=== PATIENT | female | born 1940 | race Caucasian/White ===

== ENCOUNTER 2020-06-29 10:05 | Outpatient (REF) | payer SELFPAY | END 2020-06-29 10:06 | disposition home or self-care (01) | LOC: HO.HAP 10:05 | PROVIDERS: PCP Internal Medicine; Referring Provider Internal Medicine; Visit Provider Internal Medicine | DX: Z13.89 Encounter for screening for other disorder (principal) | CPT/HCPCS: 92700 ==

== ENCOUNTER 2020-08-31 16:14 | Outpatient (REF) | payer MEDICARE, SELFPAY ==
--- NOTE | 2020-08-31 | MM_ITS ---
EXAMINATION: MM SCREENING DIGITAL BREAST TOMOSYNTHESIS, BILATERAL CLINICAL INFORMATION: Screening. Asymptomatic. Benign right stereotactic biopsy 06/23/2016 (benign breast tissue with sclerosing adenosis, ductal hyperplasia with columnar cell change, and microcalcifications). The lifetime risk of breast cancer based on the Tyrer-Cuzick Model is under 2%. COMPARISON: Mammography: 01/15/2019, 01/08/2018, 12/29/2016, 06/23/2016, 06/10/2016 TECHNIQUE: Digital breast tomosynthesis is performed in both the craniocaudal and mediolateral oblique views along with computer-aided detection (CAD). Synthesized 2D images are generated from the tomosynthesis. FINDINGS: There are scattered areas of fibroglandular density (ACR BI-RADS breast composition Category b). There are no significant masses, abnormal calcifications, or other abnormalities. Parenchymal pattern is similar to prior studies. Again, there is biopsy clip marker right breast upper outer quadrant with stable calcifications in this area. No significant changes. MM/MM tomosynthesis screening BI IMPRESSION: No significant changes from prior exams. ASSESSMENT: BI-RADS 2: Benign RECOMMENDATION: Routine annual mammography screening. This patient's information was entered into a reminder system with a target due date for their next mammogram.
== END 2020-08-31 16:15 | disposition home or self-care (01) ==
LOC: HO.MAMMO 16:14
PROVIDERS: Visit Provider Internal Medicine
DX: Z12.31 Encounter for screening mammogram for malignant neoplasm of breast (principal)
CPT/HCPCS: 77063; 77067

== ENCOUNTER 2020-09-15 08:25 | Outpatient (REF) | payer MEDICARE, SELFPAY ==
--- NOTE | 2020-09-15 13:25 | MHC.AU.P13 ---
Adult Audiological Evaluation Date of Visit: 09/15/20 Reason for Appointment: Audiological evaluation to determine if there has been a decrease in hearing sensitivity. Ms. Gutierrez has a known bilateral, sensorineural hearing loss and uses binaural hearing aids. She feels her hearing has worsened and she has been raising the volume on her hearing aids frequently. She denies any changes to her medical history. Previous Hearing Test [place] [facility] [place]- Moderate to severe sensorineural hearing loss bilaterally. 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 Model: OPN1 mini RITE Serial Number: [id number] Battery Size: 312 Warranty: 07/07/2020 Dispensed By: [facility] Date of Fittin06/13/2017 Hearing Instrument History- Left Ear: Auto Brake Technician: O[employer]on Model: OPN 1 Mini RITE Serial Number: [id number] Battery Size: 312 Warranty: 07/07/2020 Dispensed By: [facility] Date of Fittin06/13/2017 Otoscopy: Right Ear: Unremarkable Left Ear: Unremarkable Tympanometry: Right Ear: Hypercompliant Middle Ear System (Type Ad) Left Ear: Hypercompliant Middle Ear System (Type Ad) Hearing Evaluation: Transducer(s) Used: Insert Earphones, Circumaural Headphones (rechecked with both) Method: Conventional Audiometry Stimuli Used: Pure Tones Right Ear: Description of Hearing: Moderate to moderately severe sensorineural hearing loss from 250-8000 Hz. Left Ear: Description of Hearing: Moderate to severe sensorineural hearing loss from 250-8000 Hz. Speech Recognition Threshold (SRT): Method Used: Monitored Live Voice Stimuli Used: Spondee Words Right Ear: 55 dBHL Left Ear: 50 dBHL Word Discrimination: Method: Recorded Lists Word Lists Used: NU-6 Right Ear: 56% at 75 dBHL (MCL) & 64% at 85 dBHL Left Ear: 24% at 70 dBHL (MCL) & 72% at 80 dBHL Most Comfortable Level (MCL): Right Ear: 75 dBHL Left Ear: 70 dBHL Comparison: Compared to the most recent evaluation: Word discrimination scores have decreased bilaterally. Compared to most recent evaluation: Puretone thresholds have remained stable bilaterally. Recommendations: Recommendations: Audiological re-evaluation in one year. See Hearing Aid Follow-Up note for more information. Hearing aid(s) reprogrammed with updated test results. Diagnosis: Primary Diagnosis: H90.3 Bilateral Sensorineural Hearing Loss Services Performed: Services Performed: Comprehensive Audiological Evaluation (CPT 00305) Tympanometry (CPT 72131) Signature: Provider: Dandre Dick, CCC-A
== END 2020-09-15 08:26 | disposition home or self-care (01) ==
LOC: HO.SH 08:25
PROVIDERS: Visit Provider Internal Medicine
DX: H90.3 Sensorineural hearing loss, bilateral (principal)
CPT/HCPCS: 92557; 92567

== ENCOUNTER 2020-09-15 09:43 | Outpatient (REF) | payer SELFPAY | END 2020-09-15 09:44 | disposition home or self-care (01) | LOC: HO.HAP 09:43 | PROVIDERS: Visit Provider Internal Medicine | DX: Z46.1 Encounter for fitting and adjustment of hearing aid (principal); H90.3 Sensorineural hearing loss, bilateral | CPT/HCPCS: V5267 ==

== ENCOUNTER 2020-09-15 09:51 | Outpatient (REF) | payer MEDICARE, SELFPAY | END 2020-09-15 09:52 | disposition home or self-care (01) | LOC: HO.LAB 09:51 | PROVIDERS: PCP Internal Medicine; Visit Provider Internal Medicine | DX: Z20.822 Contact with and (suspected) exposure to COVID-19 (principal) | CPT/HCPCS: 36415; C9803; U0003 ==

== ENCOUNTER 2020-12-01 14:11 | Outpatient (REF) | payer MEDICARE, SELFPAY ==
--- NOTE | ~2020-12-01 | MR_ITS ---
EXAMINATION: MR BRAIN WITHOUT AND WITH CONTRAST CLINICAL INFORMATION: Acoustic neuroma. Self-reported rushing noise in head since October 2020. No trauma. COMPARISON: None TECHNIQUE: Multiplanar, multisequence MRI of the brain was obtained before and after the intravenous administration of 6.5 mL Gadavist. Internal auditory canal protocol images are obtained. FINDINGS: Mild diffuse commensurate prominence of ventricles and sulci is noted. A mild number of scattered subcortical and periventricular white matter punctate T2 hyperintensities are visualized. No intracranial hemorrhage, tumors or acute infarcts are noted. The craniocervical junction and cerebellar tonsils are normal in configuration. Convex inward configuration of the superior margin of the pituitary is incidentally noted. No suspicious marrow abnormalities are visualized. The visualized components of the 7th and 8th cranial nerves are normal in appearance. The temporal bone labyrinths are grossly normal in configuration and signal intensity. A 6 mm focus of cystic encephalomalacia is present in the left thalamus and has the appearance of a chronic lacunar infarct. No abnormal enhancement of the brain parenchyma is visualized. Normal flow-related signal intensity is noted within the visualized major intracranial vessels and dural sinuses. MR/MR head/brain wo/w con IMPRESSION: 1. Mild white matter chronic small vessel ischemic changes and chronic lacunar infarct within the left thalamus. 2. Normal appearance of the visualized 7th and 8th cranial nerve complexes. No evidence of fibular schwannomas.
[2020-12-01 14:51] LABS: Blood Urea Nitrogen 22 mg/dL (9-16); Estimated Glomerular Filt Rate > 60
== END 2020-12-01 14:12 | disposition home or self-care (01) ==
LOC: HO.MRI 14:11
PROVIDERS: PCP Internal Medicine; Visit Provider Internal Medicine
DX: D33.3 Benign neoplasm of cranial nerves (principal); H93.19 Tinnitus, unspecified ear
CPT/HCPCS: 36415; 70553; 82565; 84520; A9585

== ENCOUNTER 2021-01-20 09:45 | Outpatient (REF) | payer MEDICARE, SELFPAY ==
--- NOTE | ~2021-01-20 | CT_ITS ---
EXAMINATION: CT SOFT TISSUE NECK WITH CONTRAST CLINICAL INFORMATION: Pain and swelling. COMPARISON: None TECHNIQUE: Following the intravenous administration of 60 mL of Omnipaque 350 intravenous contrast, helical imaging was performed in the axial plane with generation of coronal and sagittal reformatted images. This CT examination was performed using dose optimization techniques as appropriate, variously including the following: *Automated exposure control *Adjustment of mA and/or kV according to patient size (this includes techniques or standardized protocols for targeted exams where dose is matched to indication/reason for exam; i.e. extremities or head) *Use of iterative reconstruction technique DLP: 245 mGy-cm FINDINGS: No cervical adenopathy is identified. The parotid glands are homogeneous in attenuation. The submandibular glands are normal. No contour abnormality or pathologic enhancement is seen within the oral cavity or pharyngeal mucosal space. The laryngeal structures are normal. There is minimal fluid/hypodensity seen in the valleculae. The piriform sinuses are clear. The parapharyngeal fat is preserved. The carotid sheath vasculature opacifies normally. No extramucosal soft tissue mass or fluid collection is seen. No retropharyngeal fluid collection is seen. The thyroid gland is normal. The superior mediastinum is unremarkable. There are emphysematous changes in both lung apices. No focal lesion or consolidation is seen. An ectatic right brachiocephalic artery is visualized. There is moderate mucoperiosteal thickening in the left maxillary sinus. The rest of the paranasal sinuses are well aerated and clear. There is moderate deviation of the nasal septum to the left with a patent nasal cavity airway. There is katalina bullosa of the right middle turbinate. The temporomandibular joints are normal. No periapical disease is identified. There are degenerative disc changes and spondylosis throughout the cervical spine. The craniovertebral junction is normal. The imaged portions of the brain parenchyma are unremarkable. CT/CT soft tissue neck w con IMPRESSION: There are chronic left maxillary sinus inflammatory changes. No radiopaque sialolith. The salivary and thyroid glands are symmetrical and normal. Moderate deviation of the nasal septum to the left with a small bony spur. There is a katalina bullosa of the right middle turbinate. Degenerative disc changes with spondylosis at every cervical disc level.
[2021-01-20 10:12] LABS: Blood Urea Nitrogen 22 mg/dL (9-16); Estimated Glomerular Filt Rate > 60
[2021-01-20] MEDS: iohexoL 350 MG/ML 100 ML INFUS..BTL IV (12:19)
== END 2021-01-20 09:46 | disposition home or self-care (01) ==
LOC: HO.CT 09:45
PROVIDERS: PCP Internal Medicine; Visit Provider Internal Medicine
DX: R60.0 Localized edema (principal); R52 Pain, unspecified
CPT/HCPCS: 36415; 70491; 82565; 84520; Q9967

== ENCOUNTER 2021-06-01 09:50 | Outpatient (REF) | payer MEDICARE, SELFPAY ==
[2021-06-02 07:59] LABS: SARS COV2 IgG Negative (Negative)
== END 2021-06-01 09:51 | disposition home or self-care (01) ==
LOC: HO.LAB 09:50
PROVIDERS: PCP Internal Medicine; Visit Provider Internal Medicine
DX: Z01.84 Encounter for antibody response examination (principal)
CPT/HCPCS: 36415; 86769

== ENCOUNTER 2021-09-14 09:43 | Outpatient (REF) | payer MEDICARE, SELFPAY ==
--- NOTE | ~2021-09-14 | MM_ITS ---
EXAMINATION: MM SCREENING DIGITAL BREAST TOMOSYNTHESIS, BILATERAL CLINICAL INFORMATION: Screening. Asymptomatic. Benign right stereotactic biopsy 06/23/2016 sclerosing adenosis, ductal hyperplasia with columnar cell change, and microcalcifications). The lifetime risk of breast cancer based on the Tyrer-Cuzick Model is 1%. COMPARISON: Mammography: 08/31/2020, 01/15/2019, 01/08/2018, TECHNIQUE: Digital breast tomosynthesis is performed in both the craniocaudal and mediolateral oblique views along with computer-aided detection (CAD). Synthesized 2D images are generated from the tomosynthesis. FINDINGS: There are scattered areas of fibroglandular density (ACR BI-RADS breast composition Category b). Parenchymal distribution is similar to prior exams. There is no developing density or interval mass or architectural abnormality. No abnormal calcifications on left. The bilateral axilla and skin contours are unremarkable. Calcifications mid upper outer right breast appear increased on the synthesized images. Patient will be recalled for additional magnification views to fully characterize. MM/MM tomosynthesis screening BI IMPRESSION: 1. Right: Calcifications mid upper outer right breast possibly increased. 2. Left: No mammographic evidence of malignancy. ASSESSMENT: BI-RADS 0: Incomplete - Need Additional Imaging Evaluation RECOMMENDATION: 1. Additional views of the right breast (magnification CC, magnification ML). 2. Radiology department staff will contact the patient for additional imaging. This patient's information was entered into a reminder system with a target due date for their next mammogram.
== END 2021-09-14 09:44 | disposition home or self-care (01) ==
LOC: HO.MAMMO 09:43
PROVIDERS: Visit Provider Internal Medicine
DX: Z12.31 Encounter for screening mammogram for malignant neoplasm of breast (principal)
CPT/HCPCS: 77063; 77067

== ENCOUNTER 2021-09-22 08:46 | Outpatient (REF) | payer MEDICARE, SELFPAY ==
--- NOTE | ~2021-09-22 | MM_ITS ---
EXAMINATION: MM DIAGNOSTIC DIGITAL MAMMOGRAPHY, RIGHT CLINICAL INFORMATION: Recall from screening for question of increased calcifications mid upper outer right breast. Prior benign right stereotactic biopsy in this area 06/23/2016 (sclerosing adenosis, ductal hyperplasia with columnar cell change, and microcalcifications). COMPARISON: Mammography: 09/14/2021, 08/31/2020, 12/29/2016. TECHNIQUE: Digital mammography is performed in the following views: Magnification CC, magnification ML. FINDINGS: There are scattered areas of fibroglandular density (ACR BI-RADS breast composition Category b). The fine calcifications mid upper outer right breast are similar in distribution and number to prior diagnostic magnification views 2017. There are no increasing calcifications or interval pleomorphic types. No significant changes. Results are discussed with the patient at time of visit. MM/MM added views RT IMPRESSION: Calcifications show no significant changes from prior magnification views 2017. ASSESSMENT: BI-RADS 2: Benign RECOMMENDATION: Routine annual mammography screening. This patient's information was entered into a reminder system with a target due date for their next mammogram.
== END 2021-09-22 08:47 | disposition home or self-care (01) ==
LOC: HO.MAMMO 08:46
PROVIDERS: Visit Provider Internal Medicine
DX: R92.1 Mammographic calcification found on diagnostic imaging of breast (principal)
CPT/HCPCS: 77065

== ENCOUNTER 2021-09-23 11:25 | Outpatient (REF) | payer MEDICARE, SELFPAY ==
--- NOTE | 2021-09-23 13:26 | MHC.AU.AHA ---
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 Since her last hearing test in 2020, Rosmery developed a sudden onset of tinnitus and dizzy/faint sensation after receiving her first COVID-19 vaccination. MRI of the brain indicated a blood vessel in the left side burst. No other symptoms developed and Rosmery is now on a blood thinner medication. Previous Hearing Test Results: 09/15/2020 [facility] Bilateral moderate to severe sensorineural hearing loss. Speech understanding for the right ear was 56% at 75 dB HL and 64% at 85 dB HL . Left ear speech discrimination was 24% at 70 dB HL and 72% at 80 dB HL Medical History: Medical History: High Blood Pressure, High Cholesterol, Arthritis Medication List: Plavix, Pantoprazole, Lisinopril, Amlodipine, Atorvastatin, Celecoxib Hearing Instrument History- Right Ear: Personal Driver: [employer] [place] Model: OPN1 mini RITE Serial Number: [id number] Battery Size: 312 Repair Warranty: 07/07/2020 Dispensed By: [facility] Date of Fittin06/13/2017 Hearing Instrument History- Left Ear: Personal Driver: Oticon Model: OPN 1 Mini RITE Serial Number: [id number] Battery Size: 312 Warranty: 07/07/2020 Dispensed By: [facility] Date of Fittin06/13/2017 Otoscopy: Right Ear: Unremarkable Left Ear: Unremarkable Tympanometry: Not performed at today's visit as all previous testing has indicated hyper-compliant middle ear systems, right ear greater than left. Hearing Evaluation: Transducer(s) Used: Insert Earphones Bone Conduction Method: Conventional Audiometry Stimuli Used: Pure Tones Right Ear: Description of Hearing: Moderately-severe to severe sensorineural hearing loss Left Ear: Description of Hearing: Moderately-severe to severe sensorineural hearing loss Speech Recognition Threshold (SRT): Method Used: Monitored Live Voice Stimuli Used: Spondee Words Right Ear: 50 dB HL Left Ear: 50 dB HL Word Discrimination: Method: Recorded Lists Word Lists Used: NU-6 Right Ear: 80% at 85 dB HL Left Ear: 64% at 80 dB HL Most Comfortable Level (MCL): Right Ear: 85 dB HL Left Ear: 80 dB HL Comparison: Compared to the most recent evaluation: Thresholds have decreased bilaterally. Speech discrimination has improved slightly. Recommendations: Hearing aid maintenance performed today. Hearing aid(s) reprogrammed with updated test results. Audiological re-evaluation in one year. Will send a reminder card. Diagnosis: Primary Diagnosis: H90.3 Bilateral Sensorineural Hearing Loss Secondary Diagnosis: H93.19 Tinnitus, Unspecified Ear Services Performed: Comprehensive Audiological Evaluation (CPT 74492) Signature: Provider: Dandre Valdovinos, CCC-A
== END 2021-09-23 11:26 | disposition home or self-care (01) ==
LOC: HO.SH 11:25
PROVIDERS: Visit Provider Internal Medicine
DX: H90.3 Sensorineural hearing loss, bilateral (principal)
CPT/HCPCS: 92557

== ENCOUNTER 2021-11-05 11:37 | Outpatient (REF) | payer SELFPAY ==
--- NOTE | 2021-11-05 13:51 | MHC.AU.HFU ---
Hearing Instrument Follow-Up- Binaural Date of Visit: 11/05/21 Right Ear: Leadership Development Manager: Oticon Model: OPN1 mini RITE Serial Number: [id number] Repair Warranty: 07/07/2020 Battery Size: 312 Color: CHROMA BEIGE Assistant Women'S Soccer Coach: 1-85 Type of Dome: 10MM POWER Type of Wax Guard: Prowax minifit Dispensed By: [facility] Date of Fittin06/13/2017 Left Ear: Leadership Development Manager: Oticon Model: OPN 1 Mini RITE Serial Number: [id number] Repair Warranty: 07/07/2020 Battery Size: 312 Color: CHROMA BEIGE Assistant Women'S Soccer Coach: 1-85 Type of Dome: 10 MM POWER Type of Wax Guard: prowax minifit Dispensed By: [facility] Date of Fittin06/13/2017 Follow-Up Summary: Patient continues to have problem with the right aid staying securely in the ear. She wants to try a custom mold for the right ear at this time. Took impressions of both ears today without complication in case she likes the mold and wants to but one for the left ear. Left impression in HOLD. Recommendations:Schedule EM fitting and programming appointment when right custom mold in Diagnosis Code(s): Primary Diagnosis: H90.3 Bilateral Sensorineural Hearing Loss Secondary Diagnosis: H93.19 Tinnitus, Unspecified Ear Signature:Provider: Dandre Valdovinos, [facility]
== END 2021-11-05 11:38 | disposition home or self-care (01) ==
LOC: HO.HAP 11:37
PROVIDERS: Visit Provider Internal Medicine
DX: Z13.89 Encounter for screening for other disorder (principal)

== ENCOUNTER 2021-11-26 12:11 | Outpatient (REF) | payer SELFPAY | END 2021-11-26 12:12 | disposition home or self-care (01) | LOC: HO.HAP 12:11 | PROVIDERS: Visit Provider Internal Medicine | DX: Z46.1 Encounter for fitting and adjustment of hearing aid (principal); H90.3 Sensorineural hearing loss, bilateral | CPT/HCPCS: V5264 ==

== ENCOUNTER 2021-11-30 10:12 | Emergency (ER) | payer MEDICARE, SELFPAY ==
[2021-11-30 11:11] VITALS: BP 186/89; PULSE 66; RESP 18; TEMP 36.8; O2SAT 96; BMI 26.5
--- NOTE | 2021-11-30 12:40 | ECG_ITS ---
Test Reason : hbp Blood Pressure : / mmHG Vent. Rate : 067 BPM Atrial Rate : 067 BPM P-R Int : 152 ms QRS Dur : 078 ms QT Int : 442 ms P-R-T Axes : 058 041 025 degrees QTc Int : 467 ms Sinus rhythm with Premature supraventricular complexes Borderline ECG When compared with ECG of 15-NOV-2004 10:44, Premature supraventricular complexes are now Present Referred By: Sushma Remy Electronically Signed By:ANGELO MCCLENDON
[2021-11-30 13:01] LABS: MANUAL DIFF FLAG NO
[2021-11-30 13:02] LABS: Basophils Absolute Auto 0.1 X10*3/uL (0.0-0.2); Basophils Percent Auto 0.8 % (0-2); Eosinophils Absolute Auto 0.1 X10*3/uL (0.0-0.4); Hemoglobin 14.7 g/dl (12.0-16.0); Imm Gran Abs Auto 0.02 X10*3/uL (0.00-0.03); Imm Gran Pct Auto 0.3 % (0.0-0.4); Lymphocytes Absolute Auto 1.6 X10*3/uL (1.2-4.9); Lymphocytes Percent Auto 25.3 % (20-40); Mean Corpuscular HGB Conc 34.2 g/dl (31.0-35.0); Mean Corpuscular Hemoglobin 32.1 pg (27.0-33.0); Mean Corpuscular Volume 93.9 fL (80.0-98.0); Mean Platelet Volume 9.3 fL (9.4-12.3); Monocytes Absolute Auto 0.7 X10*3/uL (0.1-1.2); Neutrophils Percent Auto 61.6 % (45-73); Platelet Count 212 X10*3/uL (160-400); Red Blood Count 4.58 X10*6/uL (4.20-5.50); Red Cell Distribution Width 13.6 % (11.0-16.0); White Blood Count 6.5 X10*3/uL (4.8-10.8)
[2021-11-30 13:17] LABS: Anion Gap 12 (12-20); Blood Urea Nitrogen 15 mg/dL (9-16); Calcium 9.9 mg/dL (8.4-10.2); Carbon Dioxide 25 mmol/L (22-29); Chloride 106 mmol/L (96-108); Creatinine Clr Calc Pharmacy 52.8; Estimated Glomerular Filt Rate > 60; Glucose Random 110 mg/dL (60-115); Potassium 3.9 mmol/L (3.3-5.1); Sodium 139 mmol/L (135-145)
[2021-11-30 13:22] LABS: Troponin-I High Sensitivity 4.4 ng/L (<3.5-17.0)
[2021-11-30 15:55] VITALS: BP 176/83; PULSE 65; RESP 16; O2SAT 96
--- NOTE | 2021-11-30 16:03 | PC.NURSE ---
PT AMBULATORY INTO PIVOT EXAM ONE. DISCUSSED CASE WITH DR VOSS. FEELS PATIENT IS OK FOR PIVOT EXAM ROOM PT AWAKE, ALERT AND ORIENTED X 3. SKIN WARM AND DRY. RESP UNLABORED. DENIES N/V.
--- NOTE | 2021-11-30 16:14 | ED.GENADULT ---
HPI - General Adult General Chief complaint: General Medical Stated complaint: BP high/L arm tingling Time Seen by Provider: 11/30/21 12:39 Source: patient Mode of arrival: ambulatory Limitations: no limitations History of Present Illness HPI narrative: Patient is a 81-year-old female past medical history of hypertension and hypercholesterolemia. Patient presents emergency department for evaluation of elevated blood pressure readings and left arm pain while at home, as high as 200/92. She reports that she has been compliant with her antihypertensive regimen; which includes Amlodipine and Lisinopril. She reports that last night she began feeling a sharp pain to her left arm between shoulder and elbow, after which she took her blood pressure and found it to be elevated. The pain subsided prior to going to bed. This morning she developed recurrence of his the left arm and again elevated blood pressure readings. She attempted to call her primary care provider's office but their office was placed today. She denies headaches, dizziness/lightheadedness, neck pain, chest pain, palpitation leg, shortness of breath, difficulty breathing, nausea, vomiting, abdominal pain, numbness or tingling of the arms or legs, weakness, pedal edema. Related Data Allergies Allergy/AdvReac Type Severity Reaction Status Date / Time sulfamethoxazole Allergy Mild RASH Unverified 05/21/20 16:24 [From Bactrim] trimethoprim [From Bactrim] Allergy Mild RASH Unverified 05/21/20 16:24 Sulfa (Sulfonamide Allergy Unknown hives Verified 07/15/19 00:00 Antibiotics) Review of Systems Review of Systems: Constitutional: No weight loss, fever, chills, weakness or fatigue. HEENT: No visual loss, blurred vision, double vision. No sneezing, congestion, runny nose or sore throat. Skin: No rash or itching. Cardiovascular: No chest pain, chest pressure or chest discomfort. No palpitations or pedal edema. Respiratory: No shortness of breath, cough or sputum production. Gastrointestinal: No nausea, vomiting or diarrhea. No abdominal pain. Genitourinary: No burning micturition. No urinary frequency or incontinence. Neurologic: No headache, dizziness, syncope, unilateral weakness, ataxia, numbness or tingling in the extremities. Musculoskeletal: No muscle pain, back pain, joint pain or stiffness. Hematologic: No bleeding or bruising. Lymphatics: No enlarged lymph nodes. PMFSH Past Medical History Medical History (Updated 11/30/21 @ 16:45 by Audrey Kendrick CNP) HTN (hypertension) Social History Social History Advance Directives: No Advance Directives Information Provided: No Physical Exam ED Vital Signs: Vital Signs - 24 hr 11/30/21 11:11 11/30/21 15:55 Temperature 98.2 F Pulse Rate 66 65 Respiratory Rate 18 16 Blood Pressure 186/89 H 176/83 H Pulse Oximetry 96 96 BMI result Body Mass Index 26.5 Vital signs have been reviewed and appeared to be correct. Blood pressure elevated 186/89. Heart rate normal.? Respiration rate normal. Temperature normal.? Oxygen saturation normal. Appearance: Alert.?Oriented to person, place and time. No acute distress.?Normal affect. Eyes: Pupils equal, round and reactive to light.? ENT: Pharynx normal.?? Neck: Normal inspection.? Neck supple.?? CVS: Heart sounds normal. Normal heart rate and rhythm.? Pulses normal, 2+ radial pulse bilaterally? Respiratory: No respiratory distress.? Lung sounds clear to auscultation bilaterally?? Abdomen: Soft and non-tender. No pulsatile mass.?? Skin: Skin warm and dry.? Normal skin color.? Extremities: No lower extremity edema.? Neuro: Moves all extremities spontaneously. Sensation intact bilaterally. CN II-XII intact. No focal neuro deficits. Ambulates with normal steady gait. Course Course Course Narrative: 81-year-old female being evaluated today are intermittent left arm pain and hypertension. She is well-appearing, nontoxic, afebrile, not tachycardic. In no apparent respiratory distress. CBC and BMP obtained in triage were unremarkable. EKG reveals sinus rhythm with PVC, no acute concern for ischemia. Troponin 4.4, HEART score 3, low risk, therefore unlikely to be ACS. History and physical exam not consistent with AAA, aortic dissection, pulmonary embolism, DVT. Patient has known hypertension, therefore I discussed that she needs to contact her primary care provider to schedule follow-up for further evaluation of blood pressure in appropriate management. Suspect that her left arm pain is most likely skeletal in nature, and she does report that she has been experiencing some carpal tunnel related pain to the bilateral wrists for which she has been using splints. Discussed with patient plan for discharge home and outpatient follow-up with PCP, reviewed reasons to return back to the emergency department, patient is agreeable with this plan of care. Medical Decision Making Medical Records Medical records reviewed: Yes I reviewed the patient's medical records. Lab Data Lab results reviewed: Yes I reviewed the patient's lab results. Result diagrams: 11/30/21 12:57 11/30/21 12:57 Labs: Lab Results 11/30/21 11/30/21 11/30/21 Range/Units 12:57 12:57 12:57 WBC 6.5 (4.8-10.8) X10*3/uL RBC 4.58 (4.20-5.50) X10*6/uL Hgb 14.7 (12.0-16.0) g/dl Hct 43.0 (37.0-47.0) % MCV 93.9 (80.0-98.0) fL MCH 32.1 (27.0-33.0) pg MCHC 34.2 (31.0-35.0) g/dl RDW 13.6 (11.0-16.0) % Plt Count 212 (160-400) X10*3/uL MPV 9.3 L (9.4-12.3) fL Immature Gran % (Auto) 0.3 (0.0-0.4) % Neut % (Auto) 61.6 (45-73) % Lymph % (Auto) 25.3 (20-40) % [place] % (Auto) 10.0 (2-11) % Eos % (Auto) 2.0 (0-4) % Baso % (Auto) 0.8 (0-2) % Lymph # (Auto) 1.6 (1.2-4.9) X10*3/uL [place] # (Auto) 0.7 (0.1-1.2) X10*3/uL Eos # (Auto) 0.1 (0.0-0.4) X10*3/uL Baso # (Auto) 0.1 (0.0-0.2) X10*3/uL Abs Immat Gran (auto) 0.02 (0.00-0.03) X10*3/uL Absolute Neuts (auto) 4.0 (2.0-8.3) x10*3/uL Absolute Nucleated RBC 0.000 (0.0-0.012) X10*3/uL Nucleated RBC % (auto) 0.0 (0.0-0.2) /100WBC Sodium 139 (135-145) mmol/L Potassium 3.9 (3.3-5.1) mmol/L Chloride 106 (96-108) mmol/L Carbon Dioxide 25 (22-29) mmol/L Anion Gap 12 (12-20) BUN 15 (9-16) mg/dL Creatinine 0.80 (0.5-1.4) mg/dL Estim Creat Clear Calc 52.8 Estimated GFR > 60 Random Glucose 110 (60-115) mg/dL Calcium 9.9 (8.4-10.2) mg/dL Troponin I High Sens 4.4 (<3.5-17.0) ng/L ECG Data Attestation: I personally reviewed and interpreted this ECG as follows: Prior ECG tracings: available for review Interpretation: Rate: 67 Rhythm:? Sinus rhythm with PVC [place]:? Cassie Normal P waves.? Normal WALKER.?? Normal QRS complex.?? ST T wave :??No ST elevation, no T-wave inversion. qTC: 467 prior studies:? November 2004 The study has been interpreted contemporaneously by me. Discharge Plan Discharge Clinical Impression: Hypertension Patient Disposition: Home, Self-Care Instructions: Hypertension (ED) Additional Instructions: Please contact your primary care provider to schedule a follow-up visit within the next 5 days. Please continue taking your blood pressure medications as prescribed. You may return to the emergency department any new or worsening symptoms or concerns. Interventions: ED Discharge Assessment Last Done: 11/30/21 17:00 Discharge Date/Time: 11/30/21 17:01
--- NOTE | 2021-11-30 16:58 | PC.NURSE ---
PT EVALUATED BY PROVIDER. PLAN IS FOR DC HOME. PT AGREEABLE TO PLAN. PT AWAKE, ALERT AND ORIENTED X 3. SKIN WARM AND DRY. RESP UNLABORED. DENIES N/V. NO C/O PAIN. DENIES CP/SOB. AMBULATORY, GAIT STEADY
== END 2021-11-30 17:01 | disposition home or self-care (01) ==
PROVIDERS: Emergency Provider Emergency Medicine; PCP Internal Medicine
DX: R20.2 Paresthesia of skin (principal); M25.512 Pain in left shoulder; M79.622 Pain in left upper arm; I10 Essential (primary) hypertension; Z79.899 Other long term (current) drug therapy
CPT/HCPCS: 36415; 80048; 84484; 85025; 93005; 99283

== ENCOUNTER 2022-02-22 11:31 | Outpatient (REF) | payer MEDICARE, SELFPAY ==
--- NOTE | ~2022-02-22 | XR_ITS ---
EXAMINATION: XR PELVIS CLINICAL INFORMATION: Right ischial pain with question of fracture COMPARISON: None TECHNIQUE: AP view of the pelvis. FINDINGS: No pelvic fractures visualized. Degenerative changes are present at the pubic symphysis. Minimal degenerative changes are present in both hips, right greater than left. Degenerative changes are present in the visualized spine. XR/XR pelvis 1-2V IMPRESSION: No definite pelvic fracture is seen.
== END 2022-02-22 11:32 | disposition home or self-care (01) ==
LOC: HO.HMGCX 11:31
PROVIDERS: PCP Internal Medicine; Visit Provider Internal Medicine
DX: R10.2 Pelvic and perineal pain (principal)
CPT/HCPCS: 72170

== ENCOUNTER 2022-05-25 11:31 | Outpatient (REF) | payer SELFPAY | END 2022-05-25 11:32 | disposition home or self-care (01) | LOC: HO.HAP 11:31 | PROVIDERS: Visit Provider Internal Medicine | DX: Z46.1 Encounter for fitting and adjustment of hearing aid (principal); H90.3 Sensorineural hearing loss, bilateral | CPT/HCPCS: V5267 ==

== ENCOUNTER 2022-06-14 19:33 | Outpatient (REF) | payer MEDICARE, SELFPAY ==
--- NOTE | ~2022-06-14 | MR_ITS ---
EXAMINATION: MRI SHOULDER WITHOUT CONTRAST, LEFT CLINICAL INFORMATION: Pain, limited range of motion.. COMPARISON: None. TECHNIQUE: MRI of the shoulder without contrast is performed in a 1.5 Susana high-field scanner. FINDINGS: Motion artifact degrading some sequences, limiting evaluation CORACOACROMIAL ARCH: Moderate acromioclavicular arthritis. Small fluid or cyst along the inferior aspect of the acromioclavicular joint. Otherwise, trace fluid in the subacromial subdeltoid space. Undersurface of the acromion is concave. ROTATOR CUFF: Mild to moderate supraspinatus tendinosis. Mild infraspinatus tendinosis, with a 4 x 5 mm intrasubstance in the insertional middle fibers. Teres minor is intact. [id number] subscapularis tendinosis. ROTATOR CUFF MUSCLES: No muscle atrophy or fatty infiltration. BICEPS TENDON: There is moderate biceps tendinosis and partial tearing. LABRUM/CAPSULE: Posterior labral degeneration plus/minus tear. No definite labral tears otherwise seen. GLENOHUMERAL JOINT/MARROW: Reactive/degenerative edema in the lesser tuberosity and underlying the bicipital groove. No fracture. Small joint fluid. MR/MR shoulder LT wo con IMPRESSION: 1. Mild to moderate supraspinatus and subscapularis tendinosis. 2. Mild infraspinatus tendinosis. There is a 4 x 5 mm intrasubstance tear. 3. Moderate biceps tendinosis and partial tearing. 4. Moderate acromioclavicular arthritis. Small cyst or loculated fluid along the inferior aspect of the acromioclavicular joint. 5. Posterior labral degeneration plus/minus tear. 6. Reactive/degenerative edema in the lesser tuberosity and underlying the bicipital groove.
== END 2022-06-14 19:34 | disposition home or self-care (01) ==
LOC: HO.MRI 19:33
PROVIDERS: Visit Provider Internal Medicine
DX: M25.512 Pain in left shoulder (principal)
CPT/HCPCS: 73221

== ENCOUNTER 2022-07-22 10:00 | Outpatient (RCR) | payer MEDICARE, SELFPAY | END 2022-07-22 16:40 | disposition home or self-care (01) | LOC: HO.PTCHIC 10:00 | PROVIDERS: PCP Internal Medicine; Visit Provider Internal Medicine | DX: M25.512 Pain in left shoulder (principal) | CPT/HCPCS: 97110; 97161 ==

== ENCOUNTER 2022-09-16 09:27 | Outpatient (REF) | payer MEDICARE, SELFPAY ==
--- NOTE | ~2022-09-16 | MM_ITS ---
EXAMINATION: MM SCREENING DIGITAL BREAST TOMOSYNTHESIS, BILATERAL CLINICAL INFORMATION: Screening. Asymptomatic. Benign right stereotactic biopsy 06/23/2016 (sclerosing adenosis, ductal hyperplasia with columnar cell change, and microcalcifications). COMPARISON: Mammography: 09/22/2021, 09/14/2021, 08/31/2020 TECHNIQUE: Digital breast tomosynthesis is performed in both the craniocaudal and mediolateral oblique views along with computer-aided detection (CAD). Synthesized 2D images are generated from the tomosynthesis. FINDINGS: There are scattered areas of fibroglandular density (ACR BI-RADS breast composition Category b). Parenchymal pattern is similar to prior studies and there is no significant mass or developing density or architectural abnormality. Again, there is a biopsy clip marker mid upper outer right breast with regional calcifications. The axilla and skin contours are unremarkable. There are no significant changes. MM/MM tomosynthesis screening BI IMPRESSION: No mammographic evidence of malignancy. ASSESSMENT: BI-RADS 2: Benign RECOMMENDATION: Routine annual mammography screening. This patient's information was entered into a reminder system with a target due date for their next mammogram.
== END 2022-09-16 09:28 | disposition home or self-care (01) ==
LOC: HO.MAMMO 09:27
PROVIDERS: PCP Internal Medicine; Visit Provider Internal Medicine
DX: Z12.31 Encounter for screening mammogram for malignant neoplasm of breast (principal)
CPT/HCPCS: 77063; 77067

== ENCOUNTER 2023-01-10 14:40 | Outpatient (REF) | payer MEDICARE, SELFPAY ==
--- NOTE | 2023-01-10 17:17 | MHC.AU.HFU ---
Hearing Instrument Follow-Up- Binaural Date of Visit: 01/10/23 Right Ear: Oticon Opn 1 miniRITE, [id number], chroma beige Repair Warranty: 07/07/2020 Battery Size: 312 Circular Saw Filer: 1-85 Type of Mold: Oticon Canal Lock RITE mold #[id number] (warranty 02/27/2022) Type of Wax Guard: Prowax minifit Dispensed By: [facility] Date of Fittin06/13/2017 Left Ear: Oticon Opn 1 miniRITE, [id number], chroma beige Repair Warranty: 07/07/2020 Battery Size: 312 Circular Saw Filer: 1-85 Type of Dome: 10 MM POWER Type of Wax Guard: prowax minifit Dispensed By: [facility] Date of Fittin06/13/2017 Follow-Up Summary: The patient is here today for a hearing evaluation and hearing aid check. Hearing is grossly stable. See audiogram for report. Discussed use of communication strategies. Visual inspection of the hearing aids revealed some debris in the wax guards, so I replaced them and the left dome. Listening check reveals clear sound. No need for re-programming as little change in hearing noted. The patient does not want a micro mold for her left aid and she does not want the right aid switched back to a dome, so she will continue as is. She paid $60 for a hearing aid check ($50) and a pack of domes ($10). Reviewed pricing as aids are out of warranty. She indicated understanding. Diagnosis Code(s): Primary Diagnosis: H90.3 Bilateral Sensorineural Hearing Loss Signature: Provider: Dandre Martin, [facility]
== END 2023-01-10 14:41 | disposition home or self-care (01) ==
LOC: HO.SH 14:40
PROVIDERS: Visit Provider Internal Medicine
DX: Z01.118 Encounter for examination of ears and hearing with other abnormal findings (principal); H90.3 Sensorineural hearing loss, bilateral
CPT/HCPCS: 92557

== ENCOUNTER 2023-01-10 15:43 | Outpatient (REF) | payer SELFPAY | END 2023-01-10 15:44 | disposition home or self-care (01) | LOC: HO.HAP 15:43 | PROVIDERS: Visit Provider Internal Medicine | DX: Z46.1 Encounter for fitting and adjustment of hearing aid (principal); H90.3 Sensorineural hearing loss, bilateral | CPT/HCPCS: 92593; V5267 ==

== ENCOUNTER 2023-01-24 08:01 | Outpatient (REF) | payer MEDICARE, SELFPAY ==
--- NOTE | ~2023-01-24 | XR_ITS ---
EXAMINATION: XR SHOULDER, LEFT CLINICAL INFORMATION: Pain. COMPARISON: Portions of the MRI right shoulder dated 06/14/2022. TECHNIQUE: AP neutral rotation, Grashey and axillary views of the left shoulder. FINDINGS: There is bony demineralization. The glenohumeral joint is intact. There is mild peripheral osteophyte formation of the glenoid. The acromioclavicular and coracoclavicular intervals are normal. There is moderate osteoarthritic change of the acromioclavicular joint. No fracture or dislocation is seen. There is a distal acromial undersurface osteophyte, and there is cortical irregularity of the greater tuberosity of the proximal left humerus. No fracture or dislocation is seen. This no abnormal soft tissue calcification or foreign body. No left pneumothorax is seen. XR/XR shoulder LT min 2V IMPRESSION: 1. There is mild osteoarthritic change of the left glenohumeral joint, and moderate osteoarthritic change is seen of the left acromioclavicular joint. 2. Findings are consistent with left rotator cuff impingement, without masood calcific tendinitis noted.
== END 2023-01-24 08:02 | disposition home or self-care (01) ==
LOC: HO.HOSX 08:01
PROVIDERS: Visit Provider Physician Assistant
DX: M19.012 Primary osteoarthritis, left shoulder (principal); M75.102 Unspecified rotator cuff tear or rupture of left shoulder, not specified as traumatic
CPT/HCPCS: 20610; 73030; 99202; J1040

== ENCOUNTER 2023-06-02 11:56 | Outpatient (REF) | payer SELFPAY | END 2023-06-02 11:57 | disposition home or self-care (01) | LOC: HO.HAP 11:56 | PROVIDERS: Visit Provider Internal Medicine | DX: Z46.1 Encounter for fitting and adjustment of hearing aid (principal) | CPT/HCPCS: 92593 ==

== ENCOUNTER 2023-09-30 10:14 | Outpatient (REF) | payer MEDICARE, SELFPAY ==
--- NOTE | ~2023-09-30 | MM_ITS ---
EXAMINATION: MM SCREENING DIGITAL BREAST TOMOSYNTHESIS, BILATERAL CLINICAL INFORMATION: Screening. Asymptomatic. COMPARISON: Mammography: This study is compared with prior exams dating back to 2017. TECHNIQUE: Digital breast tomosynthesis is performed in both the craniocaudal and mediolateral oblique views along with computer-aided detection (CAD). Synthesized 2D images are generated from the tomosynthesis. FINDINGS: There are scattered areas of fibroglandular density (ACR BI-RADS breast composition Category b). There are no significant masses, abnormal calcifications, or other abnormalities. There is a tissue marker in the upper outer quadrant of the right breast. It lies in proximity to benign calcifications which have been previously biopsied. MM/MM tomosynthesis screening BI IMPRESSION: No mammographic evidence of malignancy. ASSESSMENT: BI-RADS BI-RADS 2 - Benign Findings RECOMMENDATION: Routine annual mammography screening. 1 year F/U This examination should not preclude the clinical evaluation of a suspicious palpable abnormality. This patient's information was entered into a reminder system with a target due date for their next mammogram.
== END 2023-09-30 10:15 | disposition home or self-care (01) ==
LOC: HO.MAMMO 10:14
PROVIDERS: PCP Internal Medicine; Visit Provider Internal Medicine
DX: Z12.31 Encounter for screening mammogram for malignant neoplasm of breast (principal)
CPT/HCPCS: 77063; 77067

== ENCOUNTER → 2023-09-30 10:30 | Outpatient (BNV) | payer MEDICARE, SELFPAY | PROVIDERS: PCP Internal Medicine; Visit Provider Radiology Diagnostic Radiology | DX: Z12.31 Encounter for screening mammogram for malignant neoplasm of breast (principal) | CPT/HCPCS: 77063; 77067 ==

== ENCOUNTER 2023-12-13 10:22 | Outpatient (REF) | payer MEDICARE, SELFPAY ==
--- NOTE | ~2023-12-13 | XR_ITS ---
EXAMINATION: XR foot LT min 3V CLINICAL INFORMATION: Reason for Exam PAIN. R/O SPUR COMPARISON: None. TECHNIQUE: AP, lateral, and oblique views of the left foot FINDINGS: * Partially visualized tibial plate and screws device without evidence of hardware application. Calcaneal enthesopathy. Diffuse osteopenia limits evaluation. * No acute fracture or dislocation. Midfoot moderate to severe degenerative changes with dorsal osteophytosis. * No soft tissue abnormality. XR/XR foot LT min 3V IMPRESSION: No acute fracture or dislocation. Moderate to severe degenerative changes of the midfoot. Calcaneal enthesopathy.
== END 2023-12-13 10:23 | disposition home or self-care (01) ==
LOC: HO.HMGCX 10:22
PROVIDERS: PCP Internal Medicine; Visit Provider Internal Medicine
DX: M79.672 Pain in left foot (principal)
CPT/HCPCS: 73630

== ENCOUNTER 2024-04-02 13:08 | Outpatient (AMB) | payer MEDICARE, SELFPAY ==
--- NOTE | 2024-04-02 13:10 | A.OFFVIS_ITS ---
Intake Visit Reasons: NewProb- B/L hand pain Intake Note: Rosmery is a 83 yo right hand dominant female who presents today for a new problem of bilateral hand pain and limited ROM on the right 4th digit and left 3rd digit that began approximately 4 years ago. Patient reports numbness, tingling. Patient describes pain as 9 early in the morning on a 0-10 pain scale.Patient states she has been getting injections in the palms of her hands but tis been over a year since her last injections. Allergies sulfamethoxazole [From Bactrim] Allergy (Mild, Unverified 04/02/24 13:11) RASH trimethoprim [From Bactrim] Allergy (Mild, Unverified 04/02/24 13:11) RASH Sulfa (Sulfonamide Antibiotics) Allergy (Unknown, Verified 04/02/24 13:11) hives HPI HPI NewProb- B/L hand pain: Details: Patient is an 83-year-old female who presents for evaluation of bilateral hand pain, ongoing for at least 5-6 years. The patient reports that her pain is primarily focused in the right ring finger and left middle finger. Patient reports that she has experienced locking and catching in his digits previously, and was treated with injections approximately 4-5 years ago. The patient reports that she no longer experiencing any locking or catching in these digits, but is still experiencing the same pain she had been experiencing prior to injections. The patient reports that this pain is worst early in the morning. The patient also reports locking and catching in the right index finger, but states that there is not any significant pain associated with this. The patient also reports intermittent, but daily numbness and tingling in bilateral hands, and states that this is a sensation that feels like her hands ?fall asleep?. No other acute complaints and concerns at this time. [facility] Medical History HTN (hypertension) Social History Patient Tobacco Use Status: Former Tobacco user Current occupational status: retired Review of Systems Const All systems reviewed & are unremarkable except as noted in HPI and below Physical Exam Extrem Other: Patient is alert, oriented, and in no acute distress. Neuro: Median, ulnar, radial nerves motor and sensory intact and sensation is normal to the tips of all digits. Vascular: Cap refill brisk Pain: Patient reports tenderness to palpation at the level of the A1 riana of the right index finger. The patient also reports pain in the left middle and right ring fingers with finger flexion. ROM: Patient is able to make a closed fist and extend fully without difficulty There is visible and palpable locking and catching of the right index finger and left middle finger Skin: No lacerations or abrasions. General: No ecchymosis, erythema, or evidence of infection. Psych: Appears grossly normal Affect normal Attitude cooperative Assessment & Plan Assessment & Plan (1) Trigger finger, left middle finger: Code(s): M65.332 - Trigger finger, left middle finger Category: Medical (2) Trigger finger, right ring finger: Code(s): M65.341 - Trigger finger, right ring finger Category: Medical (3) Trigger finger, right index finger: Code(s): M65.321 - Trigger finger, right index finger Category: Medical (4) Numbness and tingling in both hands: Code(s): R20.0 - Anesthesia of skin; R20.2 - Paresthesia of skin Category: Medical Plan 1. Left middle finger trigger finger I educated the patient about the condition. I discussed both operative and nonoperative treatment options. The patient would like to proceed with surgery. The patient proceeds that she would like to proceed with the left side 1st because she would like to see how the recovery goes on her non dominant side prior to any surgical procedure in her dominant hand. The risks and benefits of operative treatment were discussed with the patient and the patient wishes to proceed with surgery. These risks include, but are not limited to, risk of damage to blood vessels, nerves, tendons, infection, recurrence, incomplete relief of preoperative symptoms, persistent pain, possible need for further surgery, and the risks associated with regional blocks and/or anesthesia. Plan is to take the patient to the operating room at some point in the next few weeks for the following procedures: 1. Left middle finger trigger release under local anesthesia All of the preoperative paperwork including the consent was discussed today. All of the patient's questions were answered in the clinic today. The patient understands that they will be in contact with our retail store manager to discuss scheduling their procedure. Patient reports that she takes clopidogrel daily, and is informed that she must stop this 7 days prior to surgery Patient denies any diabetes, kidney issues, current smoking, lung issues, asthma 2. Right index finger trigger finger 3. Right ring finger trigger finger At this time, patient would like to proceed with surgery in the left side prior to any surgical intervention on the right We will proceed with this plan 4. numbness and tingling of bilateral hands Symptoms intermittent, but daily, worse at night Nerve conduction study ordered today Patient will follow-up after nerve conduction study for discussion of results and treatment options Patient is informed that, pending results of nerve conduction study, any potential carpal tunnel procedure on the left side that needs to be done could potentially be added to her scheduled procedure. Patient will follow-up after nerve conduction study as well as prior to surgery, sooner with any acute concerns Orders: Orders NE nerve conduction velocity Today R20.0 - Anesthesia of skin, R20.2 - Paresthesia of skin NE electromyogram (EMG) Today R20.0 - Anesthesia of skin, R20.2 - Paresthesia of skin Coding Level of Care Code New Pt Level 4 (93260) Diagnoses Trigger finger, left middle finger M65.332 Trigger finger, right ring finger M65.341 Trigger finger, right index finger M65.321 Numbness and tingling in both hands R20.0; R20.2
== END 2024-04-02 14:02 | disposition home or self-care (01) ==
PROVIDERS: PCP Internal Medicine
DX: M65.332 Trigger finger, left middle finger (principal); M65.341 Trigger finger, right ring finger; M65.321 Trigger finger, right index finger; R20.0 Anesthesia of skin; R20.2 Paresthesia of skin
CPT/HCPCS: 99204; 99214

== ENCOUNTER → 2024-04-02 13:08 | Outpatient (BNVA) | payer MEDICARE, SELFPAY | PROVIDERS: PCP Internal Medicine; Visit Provider Orthopaedic Surgery | DX: M65.332 Trigger finger, left middle finger (principal); M65.341 Trigger finger, right ring finger; M65.321 Trigger finger, right index finger; R20.0 Anesthesia of skin; R20.2 Paresthesia of skin | CPT/HCPCS: 99202 ==

== ENCOUNTER 2024-05-30 12:16 | Day surgery (SDC) | payer MEDICARE, SELFPAY ==
[2024-05-30 12:49] VITALS: BP 146/71; PULSE 65; RESP 18; TEMP 36.7; O2SAT 98
[2024-05-30 13:05] VITALS: BP 146/71; PULSE 65
--- NOTE | 2024-05-30 13:12 | MHC.SHP ---
Pre-Procedural Eval Section A - 24 Hr Update-Section A only Date of Service: 05/30/24 The patient is an INPATIENT: No Changes since office visit: No Cold of Flu in the past 2 weeks, No New Medical Problems, No Changes in Medication and No Patient answered all questions The patient has been examined within 24 hours of the surgical procedure. The History & Physical has been completed within 30 days and I have reviewed it.: Yes Section B - Complete if H&P > 30 days Chief Complaint: Trigger finger, left middle finger Allergies: Allergies Allergy/AdvReac Type Severity Reaction Status Date / Time sulfamethoxazole Allergy Mild RASH Unverified 04/02/24 13:11 [From Bactrim] trimethoprim [From Bactrim] Allergy Mild RASH Unverified 04/02/24 13:11 Sulfa (Sulfonamide Allergy Unknown hives Verified 04/02/24 13:11 Antibiotics) Plan Diagnosis/Plan: Unchanged I have reviewed the history and physical and performed a pertinent physical examination on my patient. No changes have occurred unless specified. Time Spent With Patient Time: Total time managing care of this patient today ____ minutes.
--- NOTE | 2024-05-30 13:12 | W.PM.OPN ---
Operative Note Operative Note Date of Service: 05/30/24 Narrative: Operative Note Preop diagnosis: 1. Left middle finger Trigger finger Postop diagnosis: 1. Left middle finger Trigger finger Procedure: 1. Left middle finger A1 riana release Surgeon: Jenniffer Fregoso MD Hairpiece Stylist: Luis CHRISTIAN Anesthesia: local block using 1% lidocaine with epinephrine Findings: No locking or catching after A1 riana release EBL: Less than 5 mL Tourniquet time: None Specimens: None Complications: None Disposition: Brought to recovery room in stable condition Plan: Follow-up for 10-14 days for wound check and suture removal Indications: The patient is 84 years old, with a left middle finger trigger finger that has been unresponsive to nonoperative management. The risks and benefits of operative treatment including but not limited to risk of damage to blood vessels, nerves, tendons, infection, persistent pain, persistent symptoms, recurrence or possible need for additional surgery were discussed with the patient and the patient wishes to proceed with surgery. Procedure: Once consent was obtained a local block was performed in the preop area using a combination of 1% lidocaine with epinephrine. The patient was then brought back to the operating suite and placed on the operative table in supine position. The left upper extremity was prepped and draped in a standard surgical fashion. Once assured that we had a good block, a 1.5 cm oblique incision was made centered over the A1 riana of the left middle finger . The incision was made through the skin to the subcutaneous tissues using a #15 blade. Careful dissection was made down to the level of the A1 riana using tenotomy scissors, with care being taken to protect the nearby neurovascular structures. A longitudinal incision was made in the A1 riana 1st using a #15 blade, then using tenotomy scissors under direct visualization. The A1 riana was noted to be thickened. Following our A1 riana release, we no longer saw any locking or catching of the digit with flexion and extension. Once satisfied with our A1 riana release the wound was copiously irrigated with normal saline and hemostasis was obtained with a brief period of local pressure. The skin edges were reapproximated with some 5.0 nylon suture material and a sterile dressing was applied. The patient appears to have tolerated the procedure well and with no complications. All digits were well vascularized at the conclusion of the case.
[2024-05-30 14:40] VITALS: BP 163/73; PULSE 71; RESP 15; O2SAT 95
== END 2024-05-30 14:42 | disposition home or self-care (01) ==
PROVIDERS: PCP Internal Medicine; Visit Provider Orthopaedic Surgery
PROC: (CPT 26055; principal; 2024-05-30 14:10)
DX: M65.332 Trigger finger, left middle finger (principal); R20.0 Anesthesia of skin; R20.2 Paresthesia of skin; M79.642 Pain in left hand; M79.641 Pain in right hand; I10 Essential (primary) hypertension; Z87.891 Personal history of nicotine dependence; Z79.899 Other long term (current) drug therapy; Z88.2 Allergy status to sulfonamides
CPT/HCPCS: 26055; J0171

== ENCOUNTER → 2024-05-30 12:16 | Outpatient (BNV) | payer MEDICARE, SELFPAY | PROVIDERS: PCP Internal Medicine; Visit Provider Orthopaedic Surgery | DX: M65.332 Trigger finger, left middle finger (principal) | CPT/HCPCS: 26055 ==

== ENCOUNTER 2024-06-03 13:42 | Outpatient (REF) | payer SELFPAY | END 2024-06-03 13:43 | disposition home or self-care (01) | LOC: HO.HAP 13:42 | PROVIDERS: Visit Provider Internal Medicine | DX: Z46.1 Encounter for fitting and adjustment of hearing aid (principal); H90.3 Sensorineural hearing loss, bilateral | CPT/HCPCS: V5267 ==

== ENCOUNTER 2024-06-12 12:54 | Outpatient (AMB) | payer MEDICARE, SELFPAY ==
--- NOTE | 2024-06-12 13:07 | MHC.OFFVIS ---
Vital Signs 06/12/24 13:13 Height 5 ft 2 in Weight 150 lb BMI 27.4 Handedness Right Intake Visit Reasons: PO LT MF trigger 05/30/24 AR Intake Note: Rosmery is a 84 year old right hand dominant female who presents today for a post operative visit /p left middle finger A1 riana release w/ Dr Fregoso DOS: 05/30/2024. Patient reports she is unable to tell if the surgery has improved her symptoms or not. She express pain only when she closes her hand. Tylenol & ibuprofen are giving her relief. Denies numbness and tingling. Allergies sulfamethoxazole [From Bactrim] Allergy (Mild, Unverified 06/12/24 13:12) RASH trimethoprim [From Bactrim] Allergy (Mild, Unverified 06/12/24 13:12) RASH Sulfa (Sulfonamide Antibiotics) Allergy (Unknown, Verified 06/12/24 13:12) hives HPI HPI PO LT MF trigger 05/30/24 AR: Details: Patient is an 84-year-old female who presents for postoperative evaluation status post left middle finger trigger release, DOS 05/30/2024. Patient reports that her hand is feeling well, denied experiencing any locking or catching in the left middle finger at this time. Patient also denies any pain in the hand at this time. Denies any restrictions of range of motion of the left hand. Denies numbness or tingling of the left hand. Patient reports that she is still experiencing locking and catching in the right index finger, and would like to get signed up for surgery today, but states this surgery will have to be after 09/04/2024. No other acute complaints or concerns at this time [facility] Medical History HTN (hypertension) Social History Patient Tobacco Use Status: Former Tobacco user Current occupational status: retired Review of Systems Const All systems reviewed & are unremarkable except as noted in HPI and below Physical Exam Vital Signs: BMI result Body Mass Index 27.4 Extrem Other: Patient is alert, oriented, and in no acute distress. Neuro: Median, ulnar, radial nerves motor and sensory intact and sensation is normal to the tips of all digits. Vascular: Cap refill brisk Pain: Patient reports no tenderness to palpation at the level of the A1 riana of the left middle finger Patient reports tenderness to palpation over A1 riana of the right index finger ROM: Patient is able to make a closed fist and extend fully without difficulty No visible or palpable locking and catching of the left middle finger There is visible and palpable locking and catching of the right index finger Skin: Well-healing incision site noted over the A1 riana of the left middle finger General: No ecchymosis, erythema, or evidence of infection. Psych: Appears grossly normal Affect normal Attitude cooperative Assessment & Plan Assessment & Plan (1) Trigger finger, right index finger: Code(s): M65.321 - Trigger finger, right index finger Category: Medical (2) Trigger finger, left middle finger: Code(s): M65.332 - Trigger finger, left middle finger Category: Medical Plan 1. Trigger finger, left middle finger status post trigger release DOS 05/30/2024 Patient appears to be recovering well postoperatively Patient is educated about the typical recovery course At this time, patient is informed that she will not require any acute follow-up with us, as she appears to be recovering well postoperatively Patient is also informed that she will not need occupational hand therapy as her range of motion postoperatively is quite good Patient is amenable this plan 2. Trigger finger, right index finger I educated the patient about the condition. I discussed both operative and nonoperative treatment options. The patient would like to proceed with surgery. The risks and benefits of operative treatment were discussed with the patient and the patient wishes to proceed with surgery. These risks include, but are not limited to, risk of damage to blood vessels, nerves, tendons, infection, recurrence, incomplete relief of preoperative symptoms, persistent pain, possible need for further surgery, and the risks associated with regional blocks and/or anesthesia. Plan is to take the patient to the operating room at some point in the next few weeks for the following procedures: 1. Right index finger trigger release under local anesthesia All of the preoperative paperwork including the consent was discussed today. All of the patient's questions were answered in the clinic today. The patient understands that they will be in contact with our triage registered nurse to discuss scheduling their procedure. Patient states that surgery will have to be after 09/04/2024. Patient does take clopidogrel on a daily basis for anticoagulation, but this did not have to be stopped prior to her previous surgery, so we will not need to stop at this time Patient denies diabetes, asthma, heart issues, lung issues, kidney issues, or current smoking. Coding Level of Care Code Est Pt Level 4 (23014) Diagnoses Trigger finger, right index finger M65.321 Trigger finger, left middle finger M65.332
[2024-06-12 13:13] VITALS: BMI 27.4
== END 2024-06-12 13:41 | disposition home or self-care (01) ==
PROVIDERS: PCP Internal Medicine
DX: M65.321 Trigger finger, right index finger (principal); M65.332 Trigger finger, left middle finger
CPT/HCPCS: 99214

== ENCOUNTER → 2024-06-12 12:54 | Outpatient (BNVA) | payer MEDICARE, SELFPAY | PROVIDERS: PCP Internal Medicine | DX: M65.321 Trigger finger, right index finger (principal); M79.645 Pain in left finger(s); Z98.890 Other specified postprocedural states | CPT/HCPCS: 99212 ==

== ENCOUNTER 2024-09-09 06:53 | Day surgery (SDC) | payer MEDICARE, SELFPAY ==
--- OUTSIDE RECORDS SUMMARY | 2024-09-09 06:56 | XMS_ITS ---
Author Organization [facility] Address [address] [place] [address] Care Team Providers Care Vision Mixer Name Role Phone Ancelmo Chaudhary MD Primary Care Provider UnavailMarquis Vega Jr Unavailable ALLERGIES Allergen (clinical drug ingredient) Drug/Non Drug Allergy documented on EMR Reaction Allergy Type Onset Date Status sulfamethoxazole / trimethoprim Bactrim Unknown Drug Allergy Active REASON FOR VISIT Patient presents today for gerd MEDICATIONS Medication SIG (Take, Route, Frequency, Duration) Notes Start Date End Date Status Calcium 600 MG 1 tablet with meals Orally Once a day Active Fish Oil 1000 MG 1 capsule Orally Onc e a day Active Vitamin B50 Complex 1 1 Orally qd Active CoQ-10 100 MG 1 capsule with a kathleen l Orally Once a day Active Pantoprazole Sodium 40 MG 1 tablet Orall y Once a day for 90 days Active Centrum Silver 1 1 Orally qd A ctive Plavix 75 MG 1 tablet Orally Once a day for 30 day(s) Active Lisinopril 40 MG 1 tablet Orally Once a day Active amLODIPine Besylate 10 MG 1 tablet Orall y Once a day Active Atorvastatin Calcium 10 MG 1 tablet Oral ly Once a day Active VITAL SIGNS BMI 26.75 kg/m2 11/08/2023 Blood pressure systolic 000 mm Hg 11/08/19 24 Blood pressure diastolic 00 mm Hg 024 Height 63 in 11/08/2023 Temperature 97.5 degrees Fahrenheit 11/08/19 24 Weight 151 lbs 11/08/2023 Encounters Encounter Location Date Provider Diagnosis [facility] [address] [place] [address] 11/08/2023 Marquis Ayala Jr Gastroesophageal reflux disease without esophagitis K21.9 and Colon cancer screening Z12.11 ASSESSMENTS Encounter Date Diagnosis Assessment Notes Treatment Notes Treatment Clinical Notes 11/08/2023 Gastroesophageal reflux disease without esophagitis (ICD-10 - K21.9) Gastroesophageal reflux disease material was printed 11/08/2023 Colon cancer screening (ICD-10 - Z12.11) PLAN OF TREATMENT Treatment Notes Assessment Notes Gastroesophageal reflux dise ase without esophagitis Gastroesophageal reflux disease material was printed Next Appt Details Follow Up: 1 Year, Reason: Provider Name:Marquis bower Jr, 11/27/2024 10:20:00 AM, [address] [place] [address], [facility] [address], [place], [address],
--- OUTSIDE RECORDS SUMMARY | 2024-09-09 06:56 | XMS_ITS | Patient Health Record ---
Author Organization [facility] Address [address] [place] [address] Care Team Providers Care Supervisor Mixing Name Role Phone Jet MCCOY, Ancelmo Primary Care Provider UnavailMarquis Vega Jr Unavailable ALLERGIES Allergen (clinical drug ingredient) Drug/Non Drug Allergy documented on EMR Reaction Allergy Type Onset Date Status sulfamethoxazole / trimethoprim Bactrim Unknown Drug Allergy Active REASON FOR REFERRAL No Information MEDICATIONS Medication SIG (Take, Route, Frequency, Duration) Notes Start Date End Date Status Centrum Silver 1 1 Orally qd A ctive Calcium 600 MG 1 tablet with meals Orally Once a day Active Fish Oil 1000 MG 1 capsule Orally Onc e a day Active Vitamin B50 Complex 1 1 Orally qd Active CoQ-10 100 MG 1 capsule with a kathleen l Orally Once a day Active Pantoprazole Sodium 40 MG 1 tablet Orall y Once a day for 90 days Active Plavix 75 MG 1 tablet Orally Once a day for 30 day(s) Active Lisinopril 40 MG 1 tablet Orally Once a day Active amLODIPine Besylate 10 MG 1 tablet Orall y Once a day Active Atorvastatin Calcium 10 MG 1 tablet Oral ly Once a day Active IMMUNIZATIONS Vaccine Route Administration Date Status Comme nts Influenza Unknown 06/04/2015 Administered Influenza Unknown 05/05/2019 Administered Influenza Unknown 07/13/2021 Administered Influenza Unknown 07/06/2022 Administered Influenza Unknown 06/27/2023 Administered SOCIAL HISTORY Sex Assigned At : Social History Observation Description Sex Assigned At Unknown PROBLEMS Problem Type ICD Code Onset Dates Problem Status W/U Status Risk SNOMED Code Notes Problem Colon cancer screening (Z12.11) Active confirmed 724486392 Problem Gastroesophageal reflux disease without esophagitis (K21.9) Active confirmed 013976684 Problem Intestinal gas excretion (R14.3) Active confirmed 109123205 Problem Colon cancer screening declined (Z53.20) Active confirmed 68100100761025 VITAL SIGNS Temperature 97.5 degrees Fahrenheit 11/08/2023 Blood pressure diastolic 00 mm Hg 11/08/2023 Height 63 in 11/08/2023 Blood pressure systolic 000 mm Hg 11/08/2023 Weight 151 lbs 11/08/2023 BMI 26.75 kg/m2 11/08/2023 Encounters Encounter Location Date Provider Diagnosis [facility] [address] [place] [address] 11/08/2023 Marquis Ayala Jr Gastroesophageal reflux disease without esophagitis K21.9 and Colon cancer screening Z12.11 [facility] [address] [facility] [address] [place] [address] 07/19/2024 Marquis Ayala Jr ASSESSMENTS Encounter Date Diagnosis Assessment Notes Treatment Notes Treatment Clinical Notes 11/08/2023 Colon cancer screening (ICD-10 - Z12.11) 11/08/2023 Gastroesophageal reflux disease without esophagitis (ICD-10 - K21.9) Gastroesophageal reflux disease material was printed PLAN OF TREATMENT Future Test Test Name Order Date UPPER GI ENDOSCOPY 04/28/2016 COLONOSCOPY 04/28/2016 Next Appt Details Provider Name:Marquis bower Jr, 11/27/2024 10:20:00 AM, [address] [facility], [address], [place], [address], Insurance Providers Payer Name Payer Address Payer Phone Subscriber Number Group Number Insured Name Patient Relationship to Insured Coverage Start Date Coverage End Date MEDICARE OF [place] [address] [facility] [place] [address] [phone] [id number] JULIA GUARDADO KAY Self - patient is the insured [employer] ATT[employer] CLAIMS [address] [place] [address] [id number] BLAJOESPHT TE, KAY Self - patient is the insured MEDICAL (GENERAL) HISTORY Medical History History ICD Code GERD, EGD 08/2016. No H. pylori or [place] tt's esophagus. Colonoscopy 08/2016, tubular adenoma x1. Followup optional based on age Hypertension Hyperlipidemia Surgical History Surgery Date(Month/Year) Partial hysterectomy, fibroids Back surgery ORIF left ankle compound fracture
--- OUTSIDE RECORDS SUMMARY | 2024-09-09 06:56 | XMS_ITS ---
Author Organization [facility] Lucinda Kwonley Address [address] [place] [address] Care Team Providers Care Hall Porter Name Role Phone Ancelmo Chaudhary MD Primary Care Provider Unavailab Rasheed Montiel Unavailable [phone] REASON FOR VISIT question for AFO RX Encounters Encounter Location Date Provider Diagnosis [facility] [address] [place] [address] 09/19/2023 Rasheed Malone Plan Of Treatment No Information Progress Notes * Rosmery CARTWRIGHT EDOB:[birth year] (83 yo F)Acc No.[id number]:09/19/2023 Patient:?Rosmery Cartwright :1940???Age:83 Y???Sex:Female Address: [place], [address] * true * Date:? Generated for Printi ng/Faqig/eTransmitting on:?09/09/2024 06:56 AM EST
--- OUTSIDE RECORDS SUMMARY | 2024-09-09 06:56 | XMS_ITS ---
Author Organization [facility] [place] Address [address] [facility] [place] [address] Care Team Providers Care Hand Miter Operator Name Role Phone Ancelmo Chaudhary MD Primary Care Provider Unavailab Rasheed Montiel Unavailable [phone] Lynne Betancourt Unavailable [phone] Allergies Allergen (clinical drug ingredient) Drug/Non Drug Allergy documented on EMR Reaction Allergy Type Onset Date Status sulfamethoxazole / trimethoprim Bactrim rash Drug Allergy Active Substance with sulfonamide structure and antibacterial mechanism of action (substance) Sulfa Antibiotics rash Drug Allergy A ctive REASON FOR VISIT Seen Sooner Medications Medication SIG (Take, Route, Frequency, Duration) Notes Start Date End Date Status Amlodipine & Diet Manage Prod Active Lisinopril 40 MG 1 tablet Orally Once a day Active Pantoprazole Sodium 40 MG Orally Active Celecoxib 200 MG Orally Act amelia Atorvastatin Calcium 10 MG as directed Active Plavix 75 MG 1 tablet Orally Once a day Active Social History Tobacco Use: Social History Observation Description Date Details (start date - stop date) Former Smoker NA - 12/17/1993 Tobacco Use/Smoking Question Answer Notes Are you a: former smoker When did you stop smoking? 12/17/1993 Additional Findings: Tobacco Non-User Current no n-smoker Alcohol Screen Question Answer Notes Did you have a drink contain ing alcohol in the past year? Yes How many drinks did you have on a typical day when you were drinking in the past year? 1 or 2 drinks (0 point) Points 0 Interpretation Negative Tobacco use other than smoking: Question Answer Notes Are you an other tobacco user? No Vital Signs Height 5 ft 3 in in 10/24/2023 Weight 150 lbs 10/24/2023 BMI 26.57 kg/m2 10/24/2023 Encounters Encounter Location Date Provider Diagnosis [facility] [address] [place] [address] 10/24/2023 Lynne Betancourt Plan Of Treatment No Information Progress Notes * Rosmery CARTWRIGHT EDOB:[birth year] (84 yo F)Acc No.[id number]:10/24/2023 Progress Notes Patient:?Rosmery CARTWRIGHT Provider:?Lynne Betancourt DPM :1940???Age:83 Y???Sex:Female D ate:10/24/2023 Address:[address] [place] [address] [place], [place], [id number] Pcp:Ancelmo Chaudhary MD Subjective: * Chief Complaints: * ???1. Seen Sooner. * ROS:?General/Constitutional:?Nausea?denies.?Vomiting?denies.?Hunger Thirst?denies.?Loss appetite?denies.?Chills?denies.?Fatigue?denies.?Fever?denies.?Night Sweats?denies.?Unexplained weight loss?denies.?Unexplained weight gain?denies.?HEENTM:?Dentures?denies.?Dizziness?denies.?Glasses/contacts?admits.?Retinopathy?de nies.?Blurred/double vision?denies.?TMJ?denies.?Discharge/drainage?denies.?Implants?denies.?Sore throat?denies.?Dental implants?denies.?Hard of hearing ?admits.?Difficulty chewing/swallowing/speaking?denies.?Nose bleeds?denies.?Sore mouth?denies.?Respiratory:?On Oxygen?denies.?Pneumonia/pleurisy?denies.?Bronchitis?denies.?Emphysema?denies.?C oughing?denies.?Cough blood?denies.?Shortness of breath?denies.?Wheezing?denies.?Cardiovascular:?Pacemaker?denies.?MVP?denies.?WPW?denies.?CHF?denies.?Heart attack?denies.?Septal defect?denies.?Rapid beat?denies.?Chest pain ?denies.?Atrial Fib.?denies.?Murmur/Palpitations?denies.?Gastrointestinal:?Hemorrhoids?denies.?Stomach/Abdominal pain?denies.?Dark blood stool?denies.?Irritable bowel ?denies.?Constipation?denies.?Diarrhea?denies.?Hematology:?Swelling?denies.?Clots?denies.?Varicose Veins?denies.?Bruising?denies.?Bleeding problem?denies.?Genitourinary:?Blood urine?denies.?Frequent/Painfu/urination/bladder control?denies.?Kidney stones?denies.?Infection (UTI)?denies.?Nephropathy?denies.?sex trans dis (STD)?denies.?Prostate?denies.?Musculoskeletal:?Hammertoes?denies.?Bunions?denies.?Back Pain?denies.?Muscle Cramps/ Resting?denies.?Muscle cramps / walking?denies.?Generalized aches and pains?admits.?Weakness?denies.?Integ.:?[place]inson?denies.?Scars?denies.?Corns/calluses?denies.?Ingrown nails?denies.?Painful nails?denies.?Open Sores?denies.?Rashes?denies.?Neurologic:?Difficulty sleeping?denies.?Brain disorder?denies.?Numbness?denies.?Balance trouble?denies.?Confusion?denies.?Fainting/blackouts?denies.?Tingling?denies.?Tr emors?denies.? * Medical History:?Joint impla nts/screws, Reflux, Mumps, Measles, Hypertension, Chicken pox, Cholesterol, Arthritis, Broken bones, CAD (Cholesterol), Covid-19. * Surgical History:?back surge ry 2005, foot surgery , hysterectomy 1985, Left knee surgery 09/2017, Left meniscus shaved 11/2017, Mod Browne L 06/27/2018, Compound Fracture of Ankle 2018. * Family History:?Mother: dece ased, diagnosed with Unspecified heart disease.?Father: .?Daughter(s): unknown, diagnosed with Unspecified heart disease, Other malignant neoplasm of unspecified site.?Spouse: diagnosed with Diabetic - NIDDM, Unspecified heart disease, Unspecified cerebral artery occlusion with cerebral infarction.?Children: diagnosed with Other malignant neoplasm of unspecified site.?4 brother(s) . 1 son(s) , 2 daughter(s) . .? 3 children. * Social History:?Tobacco Use:?Tobacco Use/Smoking?Are you a:?former smoker ?When did you stop smoking??12/17/1993 ?Additional Findings: Tobacco Non-User?Current non-smoker ?Tobacco use other than smoking?Are you an other tobacco user??No ???Drugs/Alcohol:?Drugs?Have you used drugs other than those for medical reasons in the past 12 months??No ?Alcohol Screen?Did you have a drink containing alcohol in the past year??Yes ?How many drinks did you have on a typical day when you were drinking in the past year??1 or 2 drinks (0 point) ?Points?0 ?Interpretation?Negative ???Miscellaneous:?Caffeine: no. ?Children: yes, 3. ?Exercise: yes, golf, yoga, bike riding. ?Marital status: . ?Occupation: retired. * Medications:?Taking Plavix 7 5 MG Tablet 1 tablet Orally Once a day , Taking Amlodipine & Diet Manage Prod , Taking Lisinopril 40 MG Tablet 1 tablet Orally Once a day , Taking Pantoprazole Sodium 40 MG Tablet Delayed Release Orally , Taking Celecoxib 200 MG Capsule Orally , Taking Atorvastatin Calcium 10 MG Tablet as directed * Allergies:?Bactrim: rash, Gandhi lfa Antibiotics: rash. Objective: * Vitals:?Ht:5 ft 3 in, Wt:150 , BMI: 26.57, Shoe size:9, Ht-cm: 160.02 cm, Wt-k.04 kg. Assessment: Plan: * Treatment: * Images: * The named appointment provid er may or may not be the originator of this progress note, and it is not deemed complete until electronically signed by the appointment provider. Sign off status: Pending * Provider:?Lynne Betancourt DPM Date:? Generated for Jackie steen/Alanna/Gabriel on:?09/09/2024 06:56 AM EST
--- OUTSIDE RECORDS SUMMARY | 2024-09-09 06:56 | XMS_ITS ---
Author Organization [facility] Address [address] [place] [address] Care Team Providers Care Child Care Assistant Name Role Phone Ancelmo Chaudhary MD Primary Care Provider Unavailab Rasheed Montiel Unavailable [phone] Tiff Leyva [phone] Encounters Encounter Location Date Provider Diagnosis [facility] [address] [place] [address] 10/09/2023 Tiff Leyva Plan Of Treatment No Information Progress Notes * Rosmery CARTWRIGHT EDOB:[birth year] (84 yo F)Acc No.[id number]:10/09/2023 Progress Notes Patient:?Rosmery CARTWRIGHT Provider:?Tiff Leyva DPM :1940???Age:83 Y???Sex:Female D ate:10/09/2023 Address:[address] [place], [place] [id number] Pcp:Ancelmo Chaudhary MD Subjective: * Chief Complaints: * ??? * Medical History:? Objective: * Vitals:? Assessment: Plan: * Treatment: * Images: * The named appointment provid er may or may not be the originator of this progress note, and it is not deemed complete until electronically signed by the appointment provider. Sign off status: Pending * Provider:?Tiff Leyva DPM Date:?2023 Generated for Jackie steen/Alanna/Gabriel on:?09/09/2024 06:56 AM EST
--- OUTSIDE RECORDS SUMMARY | 2024-09-09 06:57 | XMS_ITS | Patient Health Record ---
[facility] [place] Address [address] [facility] [place] [address] Care Team Providers Care Drip Box Tender Name Role Phone Ancelmo Chaudhary MD Primary Care Provider Unavailab Rasheed Montiel Unavailable [phone] Black, Tiff Unavailable [phone] Lynne Betancourt Unavailable [phone] Allergies Allergen (clinical drug ingredient) Drug/Non Drug Allergy documented on EMR Reaction Allergy Type Onset Date Status sulfamethoxazole / trimethoprim Bactrim rash Drug Allergy Active Substance with sulfonamide structure and antibacterial mechanism of action (substance) Sulfa Antibiotics rash Drug Allergy A ctive Reason For Referral No Information Medications Medication SIG (Take, Route, Frequency, Duration) Notes Start Date End Date Status Atorvastatin Calcium 10 MG as directed Active AFO-fixed . 1 . Wear daily for . 09/07/2023 Active AFO-Hinged as directed Wear Arlyn ly for as needed 09/07/2023 Active amLODIPine Besy-Benazepril HCl 5-10 MG as directed Orally Active Lisinopril 40 MG 1 tablet Orally Once a day for 30 day(s) Active Pantoprazole Sodium 40 MG 1 tablet Orall y Once a day for 30 day(s) Active Plavix 75 MG 1 tablet Orally Once a day Active Amlodipine & Diet Manage Prod Active Lisinopril 40 MG 1 tablet Orally Once a day Active Pantoprazole Sodium 40 MG Orally Active Celecoxib 200 MG Orally Act amelia Plavix 75 MG 1 tablet Orally Once a day for 30 day(s) Active Celecoxib 200 MG 1 capsule with food Orally Once a day for 30 day(s) Active Atorvastatin Calcium 10 MG 1 tablet Oral ly Once a day for 30 day(s) Active Immunizations Vaccine Route Administration Date Status Comme nts Influenza Unknown 07/10/2018 Administered Social History Tobacco Use: Social History Observation [...] Are you an other tobacco user? No Problems Problem Type SNOMED Code ICD Code Onset Dates Problem Status W/U Status Risk Notes Problem Acquired hallux valgus (48016309) Hallux valgus (acquired), left foot (M20.12) Active confirmed Problem Localized, primary osteoarthritis of the ankle and/or foot (703295332) Primary osteoarthriti s, left ankle and foot (M19.072) Active confirmed Problem Acquired hallux valgus (32691055) Hallux valgus (acquired), right foot (M20.11) Active confirmed Problem [id number] Arthritis of left ankle (M19.072) Active confirmed Encounters Encounter Location Date Provider Diagnosis [facility] [address] [address] 09/19/2023 Rasheed Malone Plan Of Treatment Pending Test Test Name Order Date X ray : Ankle, left 3V 09/07/2023 X ray : Foot, left 3V 09/07/2023 X ray : Foot, left 3V 07/10/2018 X ray : Foot, left 3V 02/26/2019 X ray : Foot, right 3V 09/07/2023, [id number]/INJECT, JOINT/BURSA 0 02/26/2019, [id number]/INJECT, JOINT/BURSA 0 12/28/2015- Ganglion Cyst Injection/Aspiratio n 05/30/2011 Insurance Providers Payer Name Payer Address Payer Phone Subscriber Number Group Number Insured Name Patient Relationship to Insured Coverage Start Date Coverage End Date Medicare [facility] [employer] [address] [place] [address] [id number] Rosmery Thompson Self - patient is the insured 7 [employer] [address] [place] [address] [phone] [id number] Rosmery Thompson Self - patient is the insured Medical (General) History Medical History History ICD Code joint implants/screws reflux mumps measles hypertension chicken pox Cholesterol Arthritis Broken bones CAD (Cholesterol) covid-19 Surgical History Surgery Date(Month/Year) back surgery 2004 foot surgery hysterectomy 1985 Left knee surgery 09/2017 Left meniscus shaved 11/2017 Mod Pavan L 06/27/2018 Compound Fracture of Ankle 2019
[2024-09-09 07:10] VITALS: BP 152/70; PULSE 69; RESP 14; TEMP 36.9; O2SAT 95; BMI 27.8
--- NOTE | 2024-09-09 08:08 | P.OP_ITS ---
Operative Note Operative Note Date of Service: 09/09/24 Narrative: Operative Note Preop diagnosis: 1. Right index finger Trigger finger Postop diagnosis: 1. Right index finger Trigger finger Procedure: 1. Right index finger A1 riana release Surgeon: Jenniffer Fregoso [facility] Psychiatrist: None Anesthesia: local block using 1% lidocaine with epinephrine Findings: No locking or catching after A1 riana release EBL: Less than 5 mL Tourniquet time: None Specimens: None Complications: None Disposition: Brought to recovery room in stable condition Plan: Follow-up for 10-14 days for wound check and suture removal Indications: The patient is 84 years old, with a right index finger trigger finger that has been unresponsive to nonoperative management. The risks and benefits of operative treatment including but not limited to risk of damage to blood vessels, nerves, tendons, infection, persistent pain, persistent symptoms, recurrence or possible need for additional surgery were discussed with the patient and the patient wishes to proceed with surgery. Procedure: Once consent was obtained a local block was performed in the preop area using a combination of 1% lidocaine with epinephrine. The patient was then brought back to the operating suite and placed on the operative table in supine position. The right upper extremity was prepped and draped in a standard surgical fashion. Once assured that we had a good block, a 1.5 cm oblique incision was made centered over the A1 riana of the right index finger . The incision was made through the skin to the subcutaneous tissues using a #15 blade. Careful dissection was made down to the level of the A1 rinaa using tenotomy scissors, with care being taken to protect the nearby neurovascular structures. A longitudinal incision was made in the A1 riana 1st using a #15 blade, then using tenotomy scissors under direct visualization. The A1 riana was noted to be thickened. Following our A1 riana release, we no longer saw any locking or catching of the digit with flexion and extension. Once satisfied with our A1 riana release the wound was copiously irrigated with normal saline and hemostasis was obtained with a brief period of local pressure. The skin edges were reapproximated with some 5.0 nylon suture material and a sterile dressing was applied. The patient appears to have tolerated the procedure well and with no complications. All digits were well vascularized at the conclusion of the case.
--- NOTE | 2024-09-09 08:08 | MHC.SHP ---
Pre-Procedural Eval Section A - 24 Hr Update-Section A only Date of Service: 09/09/24 The patient is an INPATIENT: No Changes since office visit: No Cold of Flu in the past 2 weeks, No New Medical Problems, No Changes in Medication and No Patient answered all questions The patient has been examined within 24 hours of the surgical procedure. The History & Physical has been completed within 30 days and I have reviewed it.: Yes Section B - Complete if H&P > 30 days Chief Complaint: Trigger finger, right index finger Allergies: Allergies Allergy/AdvReac Type Severity Reaction Status Date / Time sulfamethoxazole Allergy Mild RASH Verified 09/09/24 07:07 [From Bactrim] trimethoprim [From Bactrim] Allergy Mild RASH Verified 09/09/24 07:07 Sulfa (Sulfonamide Allergy Unknown hives Verified 09/09/24 07:07 Antibiotics) Plan Diagnosis/Plan: Unchanged I have reviewed the history and physical and performed a pertinent physical examination on my patient. No changes have occurred unless specified. Time Spent With Patient Time: Total time managing care of this patient today ____ minutes.
[2024-09-09 09:34] VITALS: BP 150/59; PULSE 64; RESP 16; O2SAT 96
== END 2024-09-09 09:35 | disposition home or self-care (01) ==
PROVIDERS: PCP Internal Medicine; Visit Provider Orthopaedic Surgery
PROC: (CPT 26055; principal; 2024-09-09 08:30)
DX: M65.321 Trigger finger, right index finger (principal); I10 Essential (primary) hypertension; Z79.899 Other long term (current) drug therapy; Z88.2 Allergy status to sulfonamides; Z98.890 Other specified postprocedural states; Z87.891 Personal history of nicotine dependence
CPT/HCPCS: 26055; J0171; J2003

== ENCOUNTER → 2024-09-09 06:53 | Outpatient (BNV) | payer MEDICARE, SELFPAY | PROVIDERS: PCP Internal Medicine; Visit Provider Orthopaedic Surgery | DX: M65.321 Trigger finger, right index finger (principal) | CPT/HCPCS: 26055 ==

== ENCOUNTER 2024-09-24 12:50 | Outpatient (AMB) | payer MEDICARE, SELFPAY ==
--- NOTE | 2024-09-24 12:55 | A.OFFVIS_ITS ---
Vital Signs 09/24/24 13:04 Height 5 ft 2 in Weight 152 lb BMI 27.8 Intake Visit Reasons: PO RT IF trigger 09/09/24 AR Intake Note: Rosmery is an 84 year old female who presents today for a post operative RT IF trigger release, DOS 09/09/24 AR. Sutures removed and steri-strips applied. Patient reports she is doing well, states locking and catching has subsided. She has concerns of redness around her incision. Allergies sulfamethoxazole [From Bactrim] Allergy (Mild, Verified 09/24/24 12:57) RASH trimethoprim [From Bactrim] Allergy (Mild, Verified 09/24/24 12:57) RASH Sulfa (Sulfonamide Antibiotics) Allergy (Unknown, Verified 09/24/24 12:57) hives HPI HPI PO RT IF trigger 09/09/24 AR: Details: Rosmery is an 84 year old female who presents today for a post operative RT IF trigger release, DOS 09/09/24 AR. Sutures removed and steri-strips applied. Patient reports she is doing well, states locking and catching has subsided. Reports no pain at the incision site. She has concerns of redness around her incision. [facility] Medical History HTN (hypertension) Social History Are you a primary care attendant to a significant other at home: No Do you presently have visiting nurse or other home services: No Patient Tobacco Use Status: Former Tobacco user Current occupational status: retired Review of Systems Const All systems reviewed & are unremarkable except as noted in HPI and below Physical Exam Vital Signs: BMI result Body Mass Index 27.8 Extrem Other: Patient is alert, oriented, and in no acute distress. Neuro: Normal sensation of the tips of all digits of the right hand at this time Vascular: Cap refill brisk Pain: No tenderness to palpation about the incision site on the volar aspect of the A1 riana of the right ring finger Range of motion of the right hand painless ROM: Patient is able to make a closed fist and extend all digits of the right hand fully and without difficulty Skin: Well approximated and well healing incision site noted over the A1 riana of the right ring finger There is some evidence of edema around the incision site, along with some dark red discoloration, but this appears more consistent with hyperemia then erythema General: No ecchymosis, erythema, or evidence of infection. Psych: Appears grossly normal Affect normal Attitude cooperative Assessment & Plan Assessment & Plan (1) Trigger finger, right ring finger: Code(s): M65.341 - Trigger finger, right ring finger Category: Medical Plan 1. Trigger finger, right ring finger Status post trigger release DOS 09/09/2024 Patient appears to be recovering well postoperatively Patient is educated about the typical recovery course At this time, patient was informed she will require no further acute follow-up with us for this surgery, as she appears to be recovering very well Patient is educated that the discoloration she appears to be experiencing around her incision site is more consistent with hyperemia and postoperative healing as opposed to any sort of acute infectious process Patient states understanding of this Patient will follow-up as needed with any acute concerns Coding Level of Care Code Global (80498) Diagnoses Trigger finger, right ring finger M65.341
[2024-09-24 13:04] VITALS: BMI 27.8
== END 2024-09-24 13:11 | disposition home or self-care (01) ==
PROVIDERS: PCP Internal Medicine
DX: M65.341 Trigger finger, right ring finger (principal)
CPT/HCPCS: 99024

== ENCOUNTER → 2024-09-24 12:50 | Outpatient (BNVA) | payer MEDICARE, SELFPAY | PROVIDERS: PCP Internal Medicine | DX: Z48.02 Encounter for removal of sutures (principal); Z87.39 Personal history of other diseases of the musculoskeletal system and connective tissue; Z98.890 Other specified postprocedural states | CPT/HCPCS: 99212 ==

== ENCOUNTER 2024-10-11 09:45 | Outpatient (REF) | payer MEDICARE, SELFPAY | END 2024-10-11 09:46 | disposition home or self-care (01) | LOC: HO.MAMMO 09:45 | PROVIDERS: PCP Internal Medicine; Visit Provider Internal Medicine | DX: Z12.31 Encounter for screening mammogram for malignant neoplasm of breast (principal) ==

== ENCOUNTER → 2024-10-11 10:00 | Outpatient (BNV) | payer MEDICARE, SELFPAY | PROVIDERS: PCP Internal Medicine; Visit Provider Internal Medicine | DX: Z12.31 Encounter for screening mammogram for malignant neoplasm of breast (principal) | CPT/HCPCS: 77063; 77067 ==

== ENCOUNTER 2024-12-18 07:50 | Outpatient (REF) | payer MEDICARE, SELFPAY ==
--- OUTSIDE RECORDS SUMMARY | 2024-12-18 07:54 | XMS_ITS ---
Author Organization [facility] Address [address] [facility] [place] [address] Care Team Providers Care Instant Potato Processing Supervisor Name Role Phone Ancelmo Chaudhary MD Primary Care Provider Unavailab Rasheed Montiel Unavailable [phone] Lynne Betancourt Unavailable [phone] Allergies Allergen (clinical drug ingredient) Drug/Non Drug [...] 10/24/2023 Encounters Encounter Location Date Provider Diagnosis [facility] [address] [place] [address] 10/24/2023 Lynne Betancourt Plan Of Treatment No Information Progress Notes * Rosmery CARTWRIGHT EDOB:[birth year] (84 yo F)Acc No.[id number]:10/24/2023 Progress Notes Patient:?Rosmery CARTWRIGHT Provider:?Lynne Betancourt DPM :1940???Age:83 Y???Sex:Female D ate:10/24/2023 Address:[address] [place] [address] [place], [place], [phone] Pcp:Ancelmo Chaudhary MD Subjective: * Chief Complaints: [...] Betancourt DPM Date:? Generated for Jackie steen/Alanna/Gabriel on:?12/18/2024 07:54 AM EDT
--- OUTSIDE RECORDS SUMMARY | 2024-12-18 07:54 | XMS_ITS ---
Author Organization [facility] Address [address] [place] [address] Care Team Providers Care Open Hearth Melter Name Role Phone Ancelmo Chaudhary MD Primary Care Provider Unavailab Rasheed Montiel Unavailable [phone] Tiff Leyva [phone] Encounters Encounter Location Date Provider Diagnosis [facility] [address] [place] [address] 10/09/2023 Tiff Leyva Plan Of Treatment No Information Progress Notes * Rosmery CARTWRIGHT EDOB:[birth year] (84 yo F)Acc No.[id number]:10/09/2023 Progress Notes Patient:?Rosmery CARTWRIGHT Provider:?Tiff Leyva DPM :1940???Age:83 Y???Sex:Female D ate:10/09/2023 Address:[address] [place], [place] [phone] Pcp:Ancelmo Chaudhary MD Subjective: * Chief Complaints: [...] Leyva DPM Date:?2023 Generated for Jackie steen/Alanna/Gabriel on:?12/18/2024 07:54 AM EDT
--- OUTSIDE RECORDS SUMMARY | 2024-12-18 07:54 | XMS_ITS | Patient Health Record ---
Author Organization [facility] Address [address] [facility] [place] [address] Care Team Providers Care Chief Estimator Name Role Phone Ancelmo Chaudhary MD Primary Care Provider UnavailRasheed Grant Unavailable [phone] Allergies Allergen (clinical drug ingredient) Drug/Non Drug [...] Status Risk Notes Problem Acquired hallux valgus (56993798) Hallux valgus (acquired), left foot (M20.12) Active confirmed Problem Localized, primary osteoarthritis of the ankle and/or foot (062600645) Primary osteoarthriti s, left ankle and foot (M19.072) Active confirmed Problem Acquired hallux valgus (17195654) Hallux valgus (acquired), right foot (M20.11) Active confirmed Problem 3033752201082921 Arthritis of left ankle (M19.072) Active confirmed Plan Of Treatment Pending Test Test Name Order Date X ray : Ankle, left 3V 09/07/2023 X ray : Foot, left 3V 09/07/2023 X ray : Foot, left 3V 07/10/2018 X ray : Foot, left 3V 02/26/2019 X ray : Foot, right 3V 09/07/2023 31842, U2257-NBPKT/INJECT, JOINT/BURSA 0 02/26/2019 54689, X3069-PMGDI/INJECT, JOINT/BURSA 0 12/28/201587263- Ganglion Cyst Injection/Aspiratio n 05/30/2011 Insurance Providers Payer Name Payer Address Payer Phone Subscriber Number Group Number Insured Name Patient Relationship to Insured Coverage Start Date Coverage End Date Medicare National Govt Svcs Inc [address] [place] [address] [id number] Rosmery Thompson Self - patient is the insured 7 [employer] Blue Shield [address] [place] [address] [id number] Rosmery Thompson Self - patient is the [...]
--- OUTSIDE RECORDS SUMMARY | 2024-12-18 07:54 | XMS_ITS | Patient Health Record ---
Author Organization [facility] Address [address] [place] [address] Care Team Providers Care Licensed And Certified Midwife Name Role Phone Jet MCCOY, Ancelmo Primary Care Provider UnavailMarquis Vega Jr Unavailable [phone] Allergies Allergen (clinical drug ingredient) Drug/Non Drug Allergy documented on EMR Reaction Allergy Type Onset Date Status sulfamethoxazole / trimethoprim Bactrim Unknown Drug Allergy Active Reason For Referral No Information Medications Medication SIG (Take, Route, Frequency, Duration) Notes Start Date End Date Status Lisinopril 40 MG 1 tablet Orally Once a day Active amLODIPine Besylate 10 MG 1 tablet Orall y Once a day Active Atorvastatin Calcium 10 MG 1 tablet Oral ly Once a day Active Centrum Silver 1 1 Orally qd [...] Unknown 07/06/2022 Administered Influenza Unknown 06/27/2023 Administered Influenza Unknown 06/25/2024 Administered Problems Problem Type SNOMED Code ICD Code Onset Dates Problem Status W/U Status Risk Notes Problem 376966872 Colon cancer screening (Z12.11) Active confirmed Problem 535217169 Gastroesophageal reflux disease without esophagitis (K21.9) Active confirmed Problem 030729132 Intestinal gas excretion (R14.3) Active confirmed Problem 73875565367362 Colon cancer screening declined (Z53.20) Active confirmed Vital Signs Temperature 95.9 degrees Fahrenheit 11/27/2024 Blood pressure diastolic 01 mm Hg 11/27/2024 Height 63 in 11/27/2024 Blood pressure systolic 001 mm Hg 11/27/2024 Weight 154.4 lbs 11/27/2024 BMI 27.35 kg/m2 11/27/2024 Encounters Encounter Location Date Provider Diagnosis [facility] [address] [place] [address] 11/27/2024 Marquis Ayala Jr [facility] [address] [facility] [address] [place] [address] 07/19/2024 Marquis Ayala Jr Plan Of Treatment Future Test Test Name Order Date UPPER GI ENDOSCOPY 04/28/2016 COLONOSCOPY 04/28/2016 Next Appt Details Provider Name:Marquis bower Jr, 11/26/2025 10:10:00 AM, [address] [place] [address], [address], [place], [address], Insurance Providers Payer Name Payer Address Payer Phone Subscriber Number Group Number Insured Name Patient Relationship to Insured Coverage Start Date Coverage End Date MEDICARE OF [place] [address] [place] [address] [phone] [id number] BLANCHET TE, KAY Self - patient is the insured MED[employer] ATTN CLAIMS [address] [place] [address] [id number] BLANCHET TE, KAY Self - patient is the insured Medical (General) History Medical History History ICD Code GERD, EGD 08/2016. No H. pylori or [place] tt's esophagus. Colonoscopy 08/2016, tubular adenoma x1. Followup optional based on age Hypertension Hyperlipidemia Surgical History Surgery Date(Month/Year) trigger finger release ORIF left ankle compound fracture Back surgery Partial hysterectomy, fibroids
--- OUTSIDE RECORDS SUMMARY | 2024-12-18 07:55 | XMS_ITS ---
Author Organization [facility] Lucinda mg Polk Address [address] [facility] [place] [facility] [place] [address] Care Team Providers Care Mushroom Sorter Grader Name Role Phone Ancelmo Chaudhary MD Primary Care Provider Unavailab Rasheed Montiel Unavailable [phone] REASON FOR VISIT question for AFO RX Encounters Encounter Location Date Provider Diagnosis [facility] [address] [place] [address] 09/19/2023 Rasheed Malone Plan Of Treatment No Information Progress Notes * Rosmery CARTWRIGHT EDOB:[birth year] (83 yo F)Acc No.[id number]:09/19/2023 Patient:?Rosmery Cartwright :1940???Age:83 Y???Sex:Female [facility] [place], [address] * true * Date:? Generated for Printi ng/Faxing/eTransmitting on:?12/18/2024 07:54 AM EDT
--- OUTSIDE RECORDS SUMMARY | 2024-12-18 07:55 | XMS_ITS ---
Author Organization [facility] Address [address] [place] [address] Care Team Providers Care Measurement Coordinator Name Role Phone Ancelmo Chaudhary MD Primary Care Provider Marquis Wright Jr Unavailable Allergies Allergen (clinical drug ingredient) Drug/Non Drug Allergy documented on EMR Reaction Allergy Type Onset Date Status sulfamethoxazole / trimethoprim Bactrim Unknown Drug Allergy Active REASON FOR VISIT Patient presents today for gerd Medications Medication SIG (Take, Route, Frequency, Duration) Notes Start Date End Date Status Lisinopril 40 MG 1 tablet Orally Once a day Active Vitamin B50 Complex 1 1 Orally qd Active CoQ-10 100 MG 1 capsule with a kathleen l Orally Once a day Active Pantoprazole Sodium 40 MG 1 tablet Orall y Once a day for 90 days Active Plavix 75 MG 1 tablet Orally Once a day for 30 day(s) Active amLODIPine Besylate 10 MG 1 tablet Orall y Once a day Active Atorvastatin Calcium 10 MG 1 tablet Oral ly Once a day Active Centrum Silver 1 1 Orally qd A ctive Calcium 600 MG 1 tablet with meals Orally Once a day Active Fish Oil 1000 MG 1 capsule Orally Onc e a day Active Vital Signs Temperature 95.9 degrees Fahrenheit 11/28/19 25 Blood pressure systolic 001 mm Hg 11/28/19 25 Blood pressure diastolic 01 mm Hg 025 Height 63 in 11/27/2024 Weight 154.4 lbs 11/27/2024 BMI 27.35 kg/m2 11/27/2024 Encounters Encounter Location Date Provider Diagnosis [facility] [address] [place] [address] 11/27/2024 Marquis Ayala Jr Plan Of Treatment Next Appt Details Provider Name:Marquis bower Jr, 11/26/2025 10:10:00 AM, [address], [address], [place], [address], Progress Notes * KAY CARTWRIGHT EDOB:[birth year] (84 yo F)Acc No.[id number]:11/27/2024 Progress Notes Patient:?KAY CARTWRIGHT E Provider:?Marquis Ayala MD :1940???Age:84 Y???Sex:Female D ate:11/27/2024 Address:[address] [place] [address] Pcp:Ancelmo Chaudhary MD Subjective: * Chief Complaints: * ???1. Patient presents today for gerd. * Medical History:?GERD, EGD 1 10/2015. No H. pylori or Mijares's esophagus., Colonoscopy 08/2016, tubular adenoma x1. Followup optional based on age, Hypertension, Hyperlipidemia. * Surgical History:?Partial hy sterectomy, fibroids , Back surgery , ORIF left ankle compound fracture , trigger finger release . * Family History:?Father: dece ased.?Mother: .? The patients mother has a postive history for uterine cancer, however, there is no known family history of colon cancer.? No family history of liver cancer. * Social History:?Tobacco Use:?Tobacco Use/Smoking?Patient is a: former smoker , How long has it been since you last smoked?: > 10 years.?Drugs/Alcohol:?Alcohol Screen?Points: 3, Interpretation: Positive.?Miscellaneous:?Marital status: . Occupation: retired. * Medications:?Taking Plavix 7 5 MG Tablet 1 tablet Orally Once a day , Taking Lisinopril 40 MG Tablet 1 tablet Orally Once a day , Taking amLODIPine Besylate 10 MG Tablet 1 tablet Orally Once a day , Taking Atorvastatin Calcium 10 MG Tablet 1 tablet Orally Once a day , Taking Centrum Silver 1 Tablet 1 Orally qd , Taking Calcium 600 MG Tablet 1 tablet with meals Orally Once a day , Taking Fish Oil 1000 MG Capsule 1 capsule Orally Once a day , Taking Vitamin B50 Complex 1 Tablet Extended Release 1 Orally qd , Taking CoQ-10 100 MG Capsule 1 capsule with a meal Orally Once a day , Taking Pantoprazole Sodium 40 MG Tablet Delayed Release 1 tablet Orally Once a day , Medication List reviewed and reconciled with the patient * Allergies:?Bactrim. Objective: * Vitals:?Wt: 154.4 lbs, Ht: 6 3 in, BMI: 27.35 Index, BP: 001/01 mm Hg, Temp: 95.9, [id number]. Assessment: Plan: * Treatment: * Preventive Medicine:? ??Counseling:?Care goal follow-up plan:?Above Normal BMI Follow-up?Dietary management education, guidance, and counseling,?BMI management provided?Yes.? ??Urinary Incontinence:?Urinary Incontinence?Assessment:?Absent,?Plan of care documented:?No, reason not specified.? ??Screenings:?Fall Risk Screening?Fall Risk Assessment:?No falls in the past year,?Screening:?No falls in the past year,?Assessment:?Not performed, no reason specified,?Plan of Care:?Not documented, no reason specified.? * * The named appointment provid er may or may not be the originator of this progress note, and it is not deemed complete until electronically signed by the appointment provider. Sign off status: Pending * Provider:?Marquis Ayala MD Date:?0 11/27/2024 Generated for Jackie steen/Alanna/Rereitting on:?12/18/2024 07:54 AM EDT
--- OUTSIDE RECORDS SUMMARY | 2024-12-18 07:55 | XMS_ITS ---
Author Organization [facility] Address [address] [place] [address] Care Team Providers Care Accounting Intern Name Role Phone Jet MCCOY, Ancelmo Primary Care Provider Unavailab bigg Ayala Jr, Marquis Unavailable REASON FOR VISIT gerd Encounters Encounter Location Date Provider Diagnosis [facility] [address] [place] [address] [place] [phone] 11/06/2024 Marquis Ayala Jr Plan Of Treatment Next Appt Details Provider Name:Marquis bower Jr, 11/26/2025 10:10:00 AM, [address] [facility], [address], [place], [address], Progress Notes * KAY CARTWRIGHT EDOB:[birth year] (84 yo F)Acc No.[id number]:11/06/2024 Progress Notes Patient:?CHAYKAY CALVILLO Dieter Provider:?Marquis Ayala MD :1940???Age:84 Y???Sex:Female D ate:11/06/2024 Address:[address] [place] [address] [id number] Pcp:Ancelmo Chaudhary MD Subjective: * Chief Complaints: * ???1. Gerd. * Medical History:? Objective: * Vitals:? Assessment: Plan: * Treatment: * * The named appointment provid er may or may not be the originator of this progress note, and it is not deemed complete until electronically signed by the appointment provider. Sign off status: Pending * Provider:?Marquis Ayala MD Date:?0 11/06/2024 Generated for Jackie steen/Alanna/Gabriel on:?12/18/2024 07:55 AM EDT
--- OUTSIDE RECORDS SUMMARY | 2024-12-18 07:55 | XMS_ITS | Clinical Summary ---
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; Arthritis of left subtalar joint; Arthritis of left ankle; Gastrocnemius equinus, left from Last 3 Months Social History Tobacco Use Types Packs/Day Years Used Date Smoking Tobacco: Never Assessed Comments Unknown Sex and Gender Information Value Date Recorded Sex Assigned at Not on file Legal Sex Female 9:31 AM EST Gender Identity Not on file Sexual Orientation Not on file Plan of Treatment Health Maintenance Due Date Last Done Comments DTaP/Tdap/Td Vaccines (1 - Tdap) 1961 Pneumococcal Vaccines 50+ (1 of 1 - PCV) 1992 Zoster (Shingles) Vaccine (1 of 2) 1992 DXA Bone Density (Females,Ag es 65 and older) 2007 RSV Vaccine 60 years and old er and Patients (1 - 1-dose 75+ series) 2017 Influenza Vaccine 04/04/2024 COVID-19 Vaccine ( - 2023-2 5 season) 2024 Hepatitis B Vaccines Aged Out No long er eligible based on patient's age to complete this topic Procedures Procedure Name Priority Date/Time Associated Diagnosis Comments XR ANKLE 2 VIEWS-LEFT Routine 11/19/2024 11:32 AM EDT Pain in left ankle and joints of left foot XR FOOT 3+ VIEWS-LEFT Routine 11/19/2024 11:32 AM EDT Pain in left ankle and joints of left foot from Last 3 Months Results * XR Foot 3+ views-Left (11/19/2024 11:32 AM EDT) Narrative [facility] - 11/19/2024 11:32 AM EDT This exam was performed in office at [facility] and images reviewed by orthopedic provider. ??Any findings are documented within ambulatory encounter note on date of service. Isaac Burgos MD [facility] ORDERA BLES Final Result Performing Organization Address [facility] de Phone Number OA * XR Ankle 2 views-Left (11/19/2024 11:32 AM EDT) Narrative [facility] - 11/19/2024 11:32 AM EDT This exam was performed in office at [facility] and images reviewed by orthopedic provider. ??Any findings are documented within ambulatory encounter note on date of service. Isaac Burgos MD [facility] ORDERA BLES Final Result Performing Organization Address [facility] de Phone Number OA from Last 3 Months Insurance [facility] - [facility] MEDICARE PART A & B Care Teams Awning Craftsman Relationship Specialty Start Date End Date Pcp, No PCP - General General Medicine 11/19/24
--- OUTSIDE RECORDS SUMMARY | 2024-12-18 07:55 | XMS_ITS ---
Author Organization [facility] Address [address] [place] [address] Care Team Providers Care Carbonation Equipment Tender Name Role Phone Jet MCCOY, Ancelmo Primary Care Provider Unavailab Juan Miguel Roberts, Marquis Unavailable [phone] REASON FOR VISIT reschedule appt 11/06/2024 Encounters Encounter Location Date Provider Diagnosis [facility] [address] [place] [address] 07/19/2024 Marquis Ayala Jr Plan Of Treatment Next Appt Details Provider Name:Marquis bower Jr, 11/26/2025 10:10:00 AM, [address], [address], [place], [address], Progress Notes * KAY CARTWRIGHT EDOB:[birth year] (84 yo F)Acc No.[id number]:07/19/2024 Patient:?KAY CARTWRIGHT :1940???Age:84 Y???Sex:Female Address:[address] [facility] [facility] [place] [address] * true * Date:? Generated for Jackie steen/Alanna/eTransmitting on:?12/18/2024 07:55 AM EDT
--- OUTSIDE RECORDS SUMMARY | 2024-12-18 07:55 | XMS_ITS ---
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
== END 2024-12-18 07:51 | disposition home or self-care (01) ==
LOC: HO.SH 07:50
PROVIDERS: PCP Internal Medicine; Visit Provider Internal Medicine
DX: Z01.118 Encounter for examination of ears and hearing with other abnormal findings (principal); H90.3 Sensorineural hearing loss, bilateral
CPT/HCPCS: 92552; 92556

== ENCOUNTER 2024-12-18 08:38 | Outpatient (REF) | payer SELFPAY ==
--- NOTE | 2024-12-18 08:49 | MHC.AU.HA3 ---
Hearing Instrument Follow-Up- Binaural Date of Visit: 12/18/24 Right Ear: Make, Model, Color, Serial Number: Oticon Opn 1 miniRITE SN: [id number] Color: Chroma beige Patient Financial Services Coordinator Repair Warranty: 07/07/2020 Patient Financial Services Coordinator Loss and Damage Warranty: 07/07/2020 Battery Size: 312 Concert Promoter/Slim Tube: 1/85 Earmold/Dome/CShell/SlimTip:Oticon Canal Lock RITE mold SN: [id number] Type of Wax Guard: ProWax on mold; miniFit on platform beater Dispensed By: [facility] Date of Fittin06/13/2017 Left Ear: Make, Model, Color, Serial Number: Oticon Opn 1 miniRITE SN: [id number] Color: Chroma beige Patient Financial Services Coordinator Repair Warranty: 07/07/2020 Patient Financial Services Coordinator Loss and Damage Warranty: 07/07/2020 [facility] Service Plan: Battery Size: 312 Concert Promoter/Slim Tube: 85 Earmold/Dome/CShell/SlimTip: 8mm power dome (no retention tail) Type of Wax Guard: miniFit Dispensed By: [facility] Date of Fittin06/13/2017 Follow-Up Summary: Updated hearing test (see audio). Hearing is stable. However, Rosmery reported needing to turn HAs up often, particularly in yoga class or at a bar. Cleaned both HAs and right EM. Replaced all wax guards and left dome. Vacuumed microphones. Ran through dehumidifier. Increased noise management settings and overall volume slightly. Discussed new HAs due to age of current pair, not ready to pursue at this time. Recommendations: Hearing instrument follow-up or maintenance as needed. Please contact our clinic with any questions or concerns. Diagnosis Code(s): Primary Diagnosis: H90.3 Bilateral Sensorineural Hearing Loss Signature: Provider: Salo Gimenez, [facility]
--- OUTSIDE RECORDS SUMMARY | 2024-12-18 08:58 | XMS_ITS | Clinical Summary ---
Author Organization [facility] Address [address] [place] [address] Care Team Providers Care Tank Washer Name Role Phone Pcp, No Primary Care Provider Unavailabl e Allergies No known active allergies Encounters Date Type Department Care Team Description 11/19/2024 11:25 AM EDT [facility] [address] [place] [address] 11/19/2024 11:00 AM EDT [facility] [address] [address] Isaac Burgos MD Pain in left ankle [...] 3+ views-Left (11/19/2024 11:32 AM EDT) Narrative [facility] - 11/19/2024 11:32 AM EDT This exam was performed in office at [facility] and images reviewed by orthopedic provider. ??Any findings are documented within ambulatory encounter note on date of service. Isaac Burogs MD [facility] ORDERA BLES Final Result Performing Organization Address [facility] de Phone Number OA * XR Ankle 2 views-Left (11/19/2024 11:32 AM EDT) Narrative [facility] - 11/19/2024 11:32 AM EDT This exam was performed in office at [facility] and images reviewed by orthopedic provider. ??Any findings are documented within ambulatory encounter note on date of service. Isaac Burgos MD [facility] ORDERA BLES Final Result Performing Organization Address [facility] de Phone Number OA from Last 3 Months Insurance [facility] O MEDICARE PART A & B Care Teams Tank Washer Relationship Specialty Start Date End Date Pcp, No PCP - General General Medicine 11/19/24
== END 2024-12-18 08:39 | disposition home or self-care (01) ==
LOC: HO.HAP 08:38
PROVIDERS: Visit Provider Internal Medicine
DX: Z46.1 Encounter for fitting and adjustment of hearing aid (principal); H90.3 Sensorineural hearing loss, bilateral
CPT/HCPCS: 92593

== ENCOUNTER 2025-01-31 10:14 | Outpatient (AMB) | payer MEDICARE, SELFPAY ==
--- NOTE | 2025-01-31 10:17 | MHC.PC.OV ---
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: No Accompanied by: Self / Same As Patient Allergies sulfamethoxazole [From Bactrim] Allergy (Mild, Verified 01/31/25 10:52) RASH trimethoprim [From Bactrim] Allergy (Mild, Verified 01/31/25 10:52) RASH Sulfa (Sulfonamide Antibiotics) Allergy (Unknown, Verified 01/31/25 10:52) hives Medication List - Last Reconciled 01/31/25 by Aiyana Gage PA-C amlodipine 10 mg PO DAILY atorvastatin 10 mg PO DAILY celecoxib 200 mg PO BID clopidogrel 75 mg PO DAILY lisinopril 40 mg PO DAILY neomycin-polymyxin B-dexameth 3.5 mg/g-10,000 unit/g-0.1 % 1 ea ophthalmic (eye) DAILY pantoprazole 40 mg PO DAILY Tobacco use date assessed: 01/31/25 Fall risk assessment: No Falls in past year Last assessed Fall Risk: 01/31/25 Dental Screening Dental Screen Date: 01/31/25 Did you have a dental visit in the last 12 months?: Yes Did you have a dental problem in the last 6 months where you did not have access to dental care?: No Was dental information given to patient?: Patient has dentist HPI Establish Care HPI Details The patient is an 84-year-old female presenting for the establishment of care after her previous physician retired. Her medical history includes essential hypertension, managed with amlodipine and lisinopril, and hyperlipidemia, for which she takes atorvastatin. The patient experiences chronic pain and uses Celecoxib for symptom relief. She takes pantoprazole for gastroesophageal reflux disease and uses artificial tears for dry eyes. Several years ago, she sustained a compound fracture in her ankle after a fall. She has had regular annual physicals, with her last mammogram in October of this year being normal. She decided to discontinue further mammograms. The exact timing of her last colonoscopy is unclear, likely performed in her 70s. The patient discussed bone density screening but declined due to the accidental nature of her past fall. Throughout the visit, the patient expressed her preferences regarding resuscitation measures, opting for DNR and DNI designations, while agreeing to hospital evaluation if necessary. She also consented to temporary IV hydration if required. Social History - Exercises regularly, practices yoga, and plays golf. - Lives independently and exhibits active lifestyle compatible with her age. [facility] Medical History (Updated 01/31/25 @ 11:08 by Aiyana Gage PA-C) Overweight with body mass index (BMI) of 28 to 28.9 in adult DNR (do not resuscitate) (~01/31/25) DNI (do not intubate) (~01/31/25) Coronary artery disease GERD (gastroesophageal reflux disease) Chronic pain Hyperlipidemia LDL goal <100 Establishing care with new doctor, encounter for Essential hypertension Dual energy x-ray photon absorptiometry (DEXA) scan declined (~01/31/25) History of mammogram (~10/11/24) HTN (hypertension) Surgical History History of colonoscopy Family History Father No problems noted. Mother Heart problem Cancer Social History Housing: Condominium Are you a primary long term care phlebotomist to a significant other at home: No Do you presently have visiting nurse or other home services: No Alcohol intake: current Alcohol intake frequency: a few times a week Alcohol type: beer and wine Patient Tobacco Use Status: Former Tobacco user service: No Current occupational status: retired Cognitive needs: No Hearing needs: Yes (b/l hearing aids) Vision needs: Yes (rx glasses) Questionnaire PHQ-9 Over the last 2 weeks, how often have you been bothered by any of the following problems? 1. Little interest or pleasure in doing things: not at all 2. Feeling down, depressed, or hopeless: not at all 3. Trouble falling or staying asleep, or sleeping too much: not at all 4. Feeling tired or having little energy: not at all 5. Poor appetite or overeating: not at all 6. Feeling bad about yourself - or that you are a failure or have let yourself or your family down: not at all 7. Trouble concentrating on things, such as reading the newspaper or watching television: not at all 8. Moving or speaking so slowly that other people could have noticed. Or the opposite - being so fidgety or restless that you have been moving around a lot more than usual: not at all 9. Thoughts that you would be better off or of hurting yourself in some way: not at all Total score: 0 Depression Screening Interpretation: Negative Depression Screening Done: Yes 88741 - PHQ-9 Billing: Yes Source: Developed by Drs. Alejandro Luna, Jackelin Colvin, Bryon Birmingham and colleagues, with an educational dorothy from [email or web address]. Thrive Questionnaire Date Thrive assessed: 01/31/25 I am a: Patient What is your living situation today?: I have a steady place to live Within the past 12 months, did the food you bought not last and you didn't have the money to get more?: Never true Within the past 12 months, did you worry whether your food would run out before you got money to buy more?: Never true Do you have trouble paying for medicines?: No Do you have trouble getting transportation to medical appointments?: No Do you have trouble paying your heating and electricity bill?: No Do you have trouble taking care of your child, family member or friend?: No Do you have trouble with day-to-day activities such as bathing, preparing meals, shopping, managing finances, etc.?: No Are you currently unemployed and looking for a job?: No Are you interested in more education?: No Please select the resources that you would like help with: None THRIVE Score: 0 AUDIT C Alcohol Use Questionnaire (AUDIT-C) 1. How often do you have a drink containing alcohol?: 2-3 times a week 2. How many drinks containing alcohol do you have on a typical day when you are drinking?: 1 or 2 3. How often do you have six or more drinks on one occasion?: Never Total Score: 3 Score Reviewed/Action Taken: No AILYN-7 AMB Questionnaire AILYN-7 Date AILYN - 7 assessed: 01/31/25 Feeling nervous, anxious, or on edge: 0 = Not at all Not being able to stop or control worryin = Not at all Worrying too much about different things: 0 = Not at all Trouble relaxin = Not at all Being so restless that it is hard to sit still: 0 = Not at all Becoming easily annoyed or irritable: 0 = Not at all Feeling afraid as if something awful might happen: 0 = Not at all Total AILYN-7 score (0-4 normal; 5-9 mild; 10-14 moderate; 15-21 severe): 0 Source: Developed by Drs. Alejandro Luna, Jackelin Colvin, Bryon Birmingham and colleagues, with an educational dorothy from [email or web address]. AILYN-7 Assessment Billing AILYN-7 Assessment Tool: AILYN-7 Assessment 79185 Review of Systems Const Details: - Mammogram (10/11/2024): Normal - Blood work: Completed in October, results pending transfer Physical exam (Primary Care) Vital Signs: Last Vital Signs Temp 97.6 F 01/31/25 10:23 Pulse 66 01/31/25 10:23 Resp 14 01/31/25 10:23 BP 153/70 H 01/31/25 10:23 Pulse Ox 94 01/31/25 10:23 Oxygen Delivery Method Room Air 01/31/25 10:23 Care Plan Goal for BP management: <140/90 patient showed me blood pressure readings at home daily and they are normally at 125/70. Patient has a history of white coat syndrome. She will continue to monitor her blood pressure. Will not be started on antihypertensives at this time. BMI result Body Mass Index 28.3 BMI Assessment/Plan discussion: High BMI High, discussed plan: lifestyle, weight reduction, dietary, physical activity and alcohol moderation Tobacco/Smoking Status: Tobacco use Status Tobacco use date assessed 01/31/25 01/31/25 10:33 Patient Tobacco Use Status Former Tobacco user 01/31/25 10:33 PHQ-9: PHQ-9 Score PHQ-9: Total score 0 01/31/25 10:33 Depression Screening Interpretation: Negative Thrive Assessment: Date of Thrive Assessment Date Thrive assessed 01/31/25 01/31/25 10:33 Advance Care Planning discussion: Completed/Scanned Date of discussion: 01/31/25 Forms completed: MOLST (DNR/DNI ) Time spent: 16-45 minutes Actual minutes spent: 25 Did not discuss due to Cultural/Spiritual beliefs: No Const Other: Appearance: Alert. Oriented X3. No acute distress. Head: Normal external exam. Normocephalic. Atraumatic. Eyes: Pupils are equal, round, and reactive to light. Extraocular movements intact. Conjunctiva and sclera normal. Eyelids normal. Throat: Pharynx normal. Uvula midline. Moist mucous membranes. Neck: Normal inspection. Neck supple. Full range of motion. Cardiovascular: Normal heart rate and rhythm. Respiratory: No respiratory distress. Painless inspiration. Back: Full range of motion noted. Skin: Skin warm and dry. Normal skin color. Normal skin turgor. No rashes/lesions/lacerations noted. Extremities: Extremities exhibit normal range of motion. Results Reviewed Results Reviewed: - Mammogram (10/11/2024): Normal - Blood work: Completed in October, results pending transfer Coding Level of Care Code New Pt Level 4 (06644) Complex EM visit Add On G2211 Diagnoses Establishing care with new doctor, encounter for Z76.89 Essential hypertension I10 Hyperlipidemia LDL goal <100 E78.5 Chronic pain G89.29 GERD (gastroesophageal reflux disease) K21.9 Coronary artery disease I25.10 DNI (do not intubate) Z78.9 DNR (do not resuscitate) Z66 Overweight with body mass index (BMI) of 28 to 28.9 in adult E66.3; Z68.28 Additional Codes PHQ-9 - 95948 - PHQ-9 Billing: Yes ([id number]) AILYN-7 Assessment Billing - AILYN-7 Assessment Tool: AILYN-7 Assessment 55370 ([id number]) Vital Signs *Quality* - Advance Care Planning discussion: Completed/Scanned ([id number]) Vital Signs *Quality* - Time spent: 16-45 minutes ([id number]) Time Spent (min) 50 Assessment & Plan Assessment & Plan (1) Establishing care with new doctor, encounter for: Code(s): Z76.89 - Persons encountering health services in other specified circumstances Category: Medical (2) Essential hypertension: Code(s): I10 - Essential (primary) hypertension Category: Medical Plan: The patient's hypertension is managed with amlodipine and lisinopril. Monitoring of blood pressure at home is recommended due to anxiety-related elevated readings. Condition is chronic and stable will continue to monitor. (3) Hyperlipidemia LDL goal <100: Code(s): E78.5 - Hyperlipidemia, unspecified Category: Medical Plan: Management with atorvastatin is to be continued alongside her dietary and exercise practices. Condition is chronic and stable continue to monitor. (4) Chronic pain: Code(s): G89.29 - Other chronic pain Category: Medical Plan: Continue Celecoxib for joint pain; maintain active lifestyle including yoga. Condition is chronic and stable continue to monitor. (5) GERD (gastroesophageal reflux disease): Code(s): K21.9 - Gastro-esophageal reflux disease without esophagitis Category: Medical Plan: Continue pantoprazole, with advice on dietary and lifestyle measures. Condition is chronic and stable continue to monitor. (6) Coronary artery disease: Code(s): I25.10 - Atherosclerotic heart disease of [place] coronary artery without angina pectoris Category: Medical Plan: Maintain current medication regimen with Plavix; monitor cardiovascular health. Condition is chronic and stable continue to monitor. (7) DNI (do not intubate): Onset Date: ~01/31/25 Code(s): Z78.9 - Other specified health status Category: Medical Plan: Had discussion for DNR/DNI. Patient filled out MOLST form. Explained to patient she should discuss this with her family and place the pink form on her refrigerator. Patient understands. (8) DNR (do not resuscitate): Onset Date: ~01/31/25 Code(s): Z66 - Do not resuscitate Category: Medical Plan: Had discussion for DNR/DNI. Patient filled out MOLST form. Explained to patient she should discuss this with her family and place the pink form on her refrigerator. Patient understands. (9) Overweight with body mass index (BMI) of 28 to 28.9 in adult: Code(s): E66.3 - Overweight; Z68.28 - Body mass index [BMI] 28.0-28.9, adult Category: Medical Plan: Patient to improve diet and exercise regimen. Condition is chronic and stable continue to monitor. Plan Plan Patient was informed and verbally consented to the use of an ambient scribe for clinic note documentation during this visit. 1. Essential Hypertension The patient's hypertension is managed with amlodipine and lisinopril. Monitoring of blood pressure at home is recommended due to anxiety-related elevated readings. 2. Hyperlipidemia Management with atorvastatin is to be continued alongside her dietary and exercise practices. 3. Chronic pain Continue Celecoxib for joint pain; maintain active lifestyle including yoga. 4. Gastroesophageal Reflux Disease Gerd Continue pantoprazole, with advice on dietary and lifestyle measures. 5. Coronary Artery Disease Maintain current medication regimen with Plavix; monitor cardiovascular health. 6. History Of Ankle Fracture No current treatment needed; stress on fall prevention discussed. During the consultation, we discussed the patient's health maintenance with emphasis on current management of chronic conditions including hypertension, hyperlipidemia, osteoarthritis, and GERD. We reviewed the continuation of her medication regimen, which she is currently tolerating well, and ensured she understands her dosage and the importance of adherence. We emphasized her active role in health monitoring, particularly for blood pressure, due to noted anxiety considerations during clinic visits. The decision to forego additional mammograms was noted and respected, based on her last normal mammogram and personal choice. No new interventions or screenings for osteoporosis were arranged, though the decision can be revisited. Resuscitation preferences were comprehensively covered with the Mulseform signing, where her choice of DNR/DNI status was supported. The patient was informed about the transfer of her medical records from her former physician, emphasizing follow-up appointments, and the use of her pharmacy to maintain an updated medication list. The patient agreed to return in a year for a follow-up or sooner if there are any health changes. Medications: New amlodipine 10 mg PO DAILY 90 tabs 3RF Patient Instructions: - Continue medications as prescribed. - Monitor blood pressure regularly at home. - Maintain your active lifestyle with yoga and golf. - Understand and communicate your MOLST form preferences to family. - Use portal for communication and to schedule blood work when necessary. - Return for follow-up visits on schedule or sooner if health changes occur.
[2025-01-31 10:23] VITALS: BP 153/70; PULSE 66; RESP 14; TEMP 36.4; O2SAT 94; BMI 28.3
--- OUTSIDE RECORDS SUMMARY | 2025-01-31 10:52 | XMS_ITS | Patient Health Record ---
[facility] [place] Address [address] [place] [address] Care Team Providers Care Branch Assistant Name Role Phone Acnelmo Chaudhary MD Primary Care Provider UnavailRasheed Grant Unavailable [phone] Allergies Allergen (clinical drug ingredient) Drug/Non Drug [...] Status Risk Notes Problem Acquired hallux valgus (28928710) Hallux valgus (acquired), left foot (M20.12) Active confirmed Problem Localized, primary osteoarthritis of the ankle and/or foot ([id number]) Primary osteoarthriti s, left ankle and foot (M19.072) Active confirmed Problem Acquired hallux valgus (33091730) Hallux valgus (acquired), right foot (M20.11) Active confirmed Problem [id number] Arthritis of left ankle (M19.072) Active confirmed Plan Of Treatment Pending Test Test Name Order Date X ray : Ankle, left 3V 09/07/2023 X ray : Foot, left 3V 09/07/2023 X ray : Foot, left 3V 07/10/2018 X ray : Foot, left 3V 02/26/2019 X ray : Foot, right 3V 09/07/2023 05202, [id number]/INJECT, JOINT/BURSA 0 02/26/2019 56402, [id number]/INJECT, JOINT/BURSA 0 12/28/201541216- Ganglion Cyst Injection/Aspiratio n 05/30/2011 Insurance Providers Payer Name Payer Address Payer Phone Subscriber Number Group Number Insured Name Patient Relationship to Insured Coverage Start Date Coverage End Date Medicare National [employer] [address] [place] [address] [id number] Rosmery Thompson Self - patient is the insured 7 [employer] [address] [place] [address] [id number] Rosmery Thompson Self - patient is the [...]
== END 2025-01-31 10:58 | disposition home or self-care (01) ==
LOC: HO.HMCSH 10:14
PROVIDERS: PCP Internal Medicine; Visit Provider Physician Assistant Medical
DX: Z76.89 Persons encountering health services in other specified circumstances (principal); I10 Essential (primary) hypertension; E78.5 Hyperlipidemia, unspecified; G89.29 Other chronic pain; K21.9 Gastro-esophageal reflux disease without esophagitis; I25.10 Atherosclerotic heart disease of native coronary artery without angina pectoris; Z78.9 Other specified health status; Z66 Do not resuscitate; E66.3 Overweight; Z68.28 Body mass index [BMI] 28.0-28.9, adult; Z00.00 Encounter for general adult medical examination without abnormal findings

== ENCOUNTER → 2025-01-31 10:14 | Outpatient (BNVA) | payer MEDICARE, SELFPAY | PROVIDERS: PCP Internal Medicine; Visit Provider Physician Assistant Medical | DX: I10 Essential (primary) hypertension (principal); E78.5 Hyperlipidemia, unspecified; G89.29 Other chronic pain; K21.9 Gastro-esophageal reflux disease without esophagitis; I25.10 Atherosclerotic heart disease of native coronary artery without angina pectoris; E66.3 Overweight; Z68.28 Body mass index [BMI] 28.0-28.9, adult; Z66 Do not resuscitate; Z78.9 Other specified health status; Z76.89 Persons encountering health services in other specified circumstances | CPT/HCPCS: 96127; 99202; 99497 ==

== ENCOUNTER 2025-04-07 16:56 | Inpatient (IN) | payer MEDICARE, SELFPAY ==
--- OUTSIDE RECORDS SUMMARY | 2024-11-06 06:00 | XMS_ITS ---
Author Organization [facility] Address [address] [place] [address] Care Team Providers Care Mines Inspector Name Role Phone Jet (RETIRED) Ancelmo MCCOY Primary Care Provider Unavailable Marquis Ayala Jr [phone] REASON FOR VISIT gerd Encounters Encounter Location Date Provider Diagnosis [facility] [address] [place] [address] 11/06/2024 Marquis Ayala Jr Plan Of Treatment Next Appt Details Provider Name:Marquis bower Jr, 11/26/2025 10:10:00 AM, 10 [facility], [address], [place], [address], Progress Notes * KAY CARTWRIGHT EDOB:[birth year] (84 yo F)Acc No.[id number]:11/06/2024 Progress Notes Patient: Jaci DUVALDieter KAY Dieter Provider: Jaci Ayala MD :1940 A ge:84 Y S ex:Female Date:11/06/2024 Address:[address] [place] [address] [place] Pcp:Ancelmo Chaudhary (RETIRED) MD Subjective: * Chief [...] 11/06/2024 Generated for Jackie steen/Alanna/Gabriel on: 0 04/07/2025 05:57 PM EDT
[2025-04-07] VITALS (7 sets, daily range): BP systolic 102–154; BP diastolic 67–99; PULSE 83–129; RESP 12–18; TEMP 36.3–36.8; O2SAT 94–96; BMI 27.5
--- NOTE | ~2025-04-07 | XR_ITS ---
CLINICAL HISTORY: irregular heart rate 1 view chest x-ray Comparison: None provided Findings: Evaluation at the lung bases is limited by portable technique and overlying soft tissues. Mild relative increased opacity overlying the right lung base. No consolidation. Heart size is normal. No acute fracture. IMPRESSION: Mild relative increased opacity overlying the right lung base is most likely related to overlying soft tissues but cannot exclude a focus of atelectasis or infiltrate. This document has been electronically signed by: Rachel Jenkins MD on 04/07/2025 18:07:31
--- NOTE | 2025-04-07 17:00 | ECG_ITS ---
Test Reason : TACKYCARDIA Blood Pressure : */* mmHG Vent. Rate : 121 BPM Atrial Rate : * BPM P-R Int : * ms QRS Dur : 86 ms QT Int : 342 ms P-R-T Axes : * 52 -62 degrees QTcB Int : 485 ms Atrial fibrillation with rapid ventricular response Nonspecific ST and T wave abnormality Abnormal ECG When compared with ECG of 30-Nov-2021 12:43, Atrial fibrillation has replaced Sinus rhythm Vent. rate has increased by 54 bpm Nonspecific T wave abnormality, worse in Inferior leads T wave inversion now evident in Anterior leads Referred By: Alyson Osullivan Electronically Signed By: ANGELO MCCLENDON
--- NOTE | 2025-04-07 17:40 | ED_ITS ---
HPI - Arrhythmia/Palpitations General Chief Complaint: Dyspnea Stated Complaint: pt says heart rate over 100 Time Seen by Provider: 04/07/25 17:15 Source: patient Mode of arrival: ambulatory Limitations: no limitations History of Present Illness ED Provider: DR. Hannah HPI narrative: 84-year-old female history of essential hypertension managed with amlodipine and lisinopril, HLD on atorvastatin, managed by celecoxib for chronic pain syndrome. Patient came in today for evaluation of palpitation and on and off shortness of breath with exertion, reports bilateral ankle swelling, patient lives home by herself fully functional still drive car. Patient otherwise declined any weakness or numbness of blurry vision combined no chest pain, no shortness of breath. No fever, no chills. Related Data Home Medications ?Medication ?Instructions ?Recorded ?Confirmed celecoxib 200 mg capsule 200 mg PO BID pain 01/24/23 01/31/25 lisinopril 40 mg tablet 40 mg PO DAILY 01/24/2301/04 neomycin 3.5 mg/g-polymyxin B 1 ea ophthalmic (eye) DA KAYLIE 01/24/23 01/31/25 10,000 unit/g-dexameth 0.1 % eye oint pantoprazole 40 mg tablet,delayed 40 mg PO DAILY 01/2401/31/25 release Previous Rx's ?Medication ?Instructions ?Recorded amlodipine 10 mg tablet 10 mg PO DAILY #90 tabs 01/04 atorvastatin 10 mg tablet 10 mg PO DAILY #90 tabs 05/29 clopidogrel 75 mg tablet 75 mg PO DAILY #90 tabs 03/06 09/28 Allergies Allergy/AdvReac Type Severity Reaction Status Date / Time sulfamethoxazole (From Allergy Mild RASH Verified 04/07/25 17:13 Bactrim) trimethoprim (From Bactrim) Allergy Mild RASH Verified 04/07/25 17:13 Sulfa (Sulfonamide Allergy Unknown hives Verified 04/07/25 17:13 Antibiotics) Review of Systems 2 Review of Systems: All other systems are reviewed and are negative Constitutional: Reports as per HPI and Reports no additional constitutional complaints Eyes: Reports as per HPI and Reports no additional eye complaints Reports system reviewed and no additional complaints, except as documented Cardiovascular: Reports as per HPI and Reports no additional cardiovascular complaints Respiratory: Reports as per HPI and Reports no additional respiratory complaints Gastrointestinal: Reports as per HPI and Reports no additional gastrointestinal complaints Genitourinary: Reports no additional female genitourinary complaints Musculoskeletal: Reports no additional musculoskeletal complaints Skin/Breast: Reports system reviewed and no additional complaints, except as docu Psychiatric: Reports no additional psychiatric complaints Endocrine: Reports no additional endocrine complaints Hematologic/Lymphatic: Reports no additional hematologic/lymphatic complaints Allergic/Immunologic: Reports no additional allergic/immunologic complaints Reports system reviewed and no additional complaints, except as documented and Reports Abnormal speech present [facility] Past Medical History Medical History Overweight with body mass index (BMI) of 28 to 28.9 in adult DNR (do not resuscitate) (~01/31/25) DNI (do not intubate) (~01/31/25) Coronary artery disease GERD (gastroesophageal reflux disease) Chronic pain Hyperlipidemia LDL goal <100 Establishing care with new doctor, encounter for Essential hypertension Dual energy x-ray photon absorptiometry (DEXA) scan declined (~01/31/25) History of mammogram (~10/11/24) HTN (hypertension) Surgical History History of colonoscopy Family History Family History Father No problems noted. Mother Heart problem Cancer Social History Social History Housing: Condominium Are you a primary post anesthesia care unit nurse to a significant other at home: No Do you presently have visiting nurse or other home services: No Alcohol intake: current Alcohol intake frequency: 0-2 drinks per day Alcohol type: beer Patient Tobacco Use Status: Former Tobacco user Smoked in Last 30 Days: No Use of substances other than those prescribed or required for medical reasons: No Advance Directives: No Advance Directives Information Provided: No service: No Current occupational status: retired Cognitive needs: No Hearing needs: Yes (b/l hearing aids) Vision needs: Yes (rx glasses) Physical Exam 2 Vital Signs: Vital Signs: Last Vital Signs Temp 98.2 F 04/07/25 17:12 Pulse 97 04/07/25 18:08 Resp 15 04/07/25 18:08 BP 132/88 04/07/25 18:08 Pulse Ox 94 04/07/25 18:08 O2 Del Method Room Air 04/07/25 18:08 BMI result Body Mass Index 27.5 Vital signs have been reviewed and appear to be correct. Blood pressure elevated. Heart rate elevated, Respiratory rate normal. Temperature normal. Oxygen saturation normal. Appearance: Alert. Oriented X3. No acute distress. Head: Normal external exam. Normocephalic. Atraumatic. No Slaughter signs noted. No raccoon eyes noted Eyes: PERRLA. EOMI. Conjunctiva and sclera normal. Eyelids normal. ENT: TM's Normal. Pharynx normal. Uvula midline. Moist mucous membranes. No trismus noted. No drooling noted. No muffled voice noted. Neck: Normal inspection. Neck supple. FROM. No adenopathy. Thyroid Normal. No meningeal signs. No neck mass noted. CVS: Normal heart rate and rhythm. Heart sound normal. No murmurs noted. Pulses normal throughout. Respiratory: No respiratory distress. Painless inspiration. Breath sounds normal. No wheezes/rales/rhonchi noted. Chest nontender. No accessory muscle usage noted or decreased air movement noted. Abdomen: Soft and nontender. Bowel sounds normal in all 4 quadrants. No distention noted. No organomegaly noted. No visible injury noted. Back: No CVA tenderness. Full range of motion noted. Skin: Skin warm and dry. Normal skin color. Normal skin turgor. No rashes/lesions/lacerations noted. Extremities: No lower extremity edema. Extremities exhibit normal range of motion. Extremities nontender. Neuro: Oriented X 3. Cranial nerve exam: II-XII are grossly intact No motor deficit. No sensory deficit. Reflexes normal. Course Reevaluation(s) Reevaluation #1: New onset AFib controlled in the ED with beta tabitha, patient's [id number] score is 4, which classifies the patient as a high-risk and indication for anticoagulation will start the patient will start on apixaban 5 mg. Admit for further cardiac workup. Time: 18:29 Medications Administered Discontinued Medications Generic Name Dose Route Start Last Admin Trade Name Freq PRN Reason Stop Dose Admin Aspirin 325 mg 04/07/25 17:41 04/07/25 17:59 Aspirin 325 Mg Tablet PO 04/07/25 17:42 325 mg ONCE ONE Administration Metoprolol Tartrate 5 mg 04/07/25 17:40 04/07/25 18:00 Metoprolol Tartrate 5 Mg/5 Ml Vial IVPUSH 04/07/25 17:41 5 mg ONCE ONE Administration Protocol Metoprolol Tartrate 25 mg 04/07/25 17:40 04/07/25 17:58 Metoprolol Tartrate 25 Mg Tablet PO 04/07/25 17:41 25 mg ONCE ONE Administration Protocol Medical Decision Making Differential Diagnosis Differential Diagnoses: The differential diagnosis associated with the presentation includes (ACS, new onset AFib, electrolyte derangement, CHF, severe anemia.) Admission/Observation Consideration of admission/observation: Escalation of care including admission/observation considered Consult Healthcare Provider Management of the patient was discussed with: Hospitalist (Dr. Padilla) Lab Data MDM Lab Attestation statement: I reviewed the patient's lab results. 04/07/25 17:49 04/07/25 17:49 Labs: Lab Results 04/07/25 04/07/25 Range/Units 17:37 17:49 WBC 8.0 (4.8-10.8) X10*3/uL RBC 3.99 L (4.20-5.50) X10*6/uL Hgb 13.0 (12.0-16.0) g/dl Hct 38.0 (37.0-47.0) % MCV 95.2 (80.0-98.0) fL MCH 32.6 (27.0-33.0) pg MCHC 34.2 (31.0-35.0) g/dl RDW 14.2 (11.0-16.0) % Plt Count 221 (160-400) X10*3/uL MPV 9.6 (9.4-12.3) fL Immature Gran % (Auto) 0.6 H (0.0-0.4) % Neut % (Auto) 63.9 (45-73) % Lymph % (Auto) 18.8 L (20-40) % [place] % (Auto) 12.9 H (2-11) % Eos % (Auto) 3.0 (0-4) % Baso % (Auto) 0.8 (0-2) % Lymph # (Auto) 1.5 (1.2-4.9) X10*3/uL [place] # (Auto) 1.0 (0.1-1.2) X10*3/uL Eos # (Auto) 0.2 (0.0-0.4) X10*3/uL Baso # (Auto) 0.1 (0.0-0.2) X10*3/uL Abs Immat Gran (auto) 0.05 H (0.00-0.03) X10*3/uL Absolute Neuts (auto) 5.1 (2.0-8.3) x10*3/uL Absolute Nucleated RBC 0.000 (0.0-0.012) X10*3/uL Nucleated RBC % (auto) 0.0 (0.0-0.2) /100WBC PT 11.7 (10.9-12.4) SEC INR 1.0 (0.9-1.1) APTT 41.1 H (26.7-34.1) SEC Sodium 144 (135-145) mmol/L Potassium 4.2 (3.3-5.1) mmol/L Chloride 112 H (96-108) mmol/L Carbon Dioxide 25 (22-29) mmol/L Anion Gap 11 L (12-20) BUN 17 H (9-16) mg/dL Creatinine 0.91 (0.5-1.4) mg/dL Estim Creat Clear Calc 43.1 Estimated GFR 59 Random Glucose 113 (60-115) mg/dL Calcium 9.3 D (8.4-10.2) mg/dL Magnesium 2.2 (1.6-2.6) mg/dL Total Bilirubin 0.5 (0.0-1.0) mg/dL AST 27 (5-31) U/L ALT 28 (0-31) U/L Alkaline Phosphatase 98 (39-117) U/L Troponin I High Sens 3.9 (<3.5-17.0) ng/L B-Natriuretic Peptide 310 H (<100) pg/mL Total Protein 7.2 (6.5-8.0) g/dL Albumin 4.5 (3.5-5.0) g/dL Influenza Type A (PCR) NEGATIVE (Negative) Influenza Type B (PCR) NEGATIVE (Negative) RSV RNA Qual (PCR) NEGATIVE (Negative) SARS-CoV-2 RNA (RT-PCR) NEGATIVE (Negative) Independent Interpretation I performed an independent interpretation of an: Plain X-Ray (Chest:Mild relative increased opacity overlying the right lung base is most likely related to overlying soft tissues but cannot exclude a focus of atelectasis or infiltrate.) Radiology Impression Discussion of test interpretation with radiology: I have reviewed the radiologist's reading. Critical Care Time Critical Care Time Critical Care Time: Yes Total Critical Care Time: 60 Attestation: The patient was critically ill with a high probability of imminent or life- threatening deterioration. I spent greater than 30 minutes of discontinuous time evaluating the patient, delivering critical care at the bedside, discussing evaluating data with consultants. Critical care time does not include time spent performing separately billable procedures or teaching. Time spent performing critical care was 60 minutes. Discharge Plan Discharge Clinical Impression: Atrial fibrillation, new onset Patient Disposition: Admitted As Inpatient Print Language: Citizen Of [place]
[2025-04-07 17:53] LABS: MANUAL DIFF FLAG NO
--- OUTSIDE RECORDS SUMMARY | 2025-04-07 17:57 | XMS_ITS ---
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
--- OUTSIDE RECORDS SUMMARY | 2025-04-07 17:57 | XMS_ITS | Clinical Summary ---
Author Organization [facility] Address [address] [place] [address] Care Team Providers Care Assembler [employer] Spider Name Role Phone Pcp, No Primary Care Provider Unavailabl e Allergies No known active allergies Social History Tobacco Use Types Packs/Day Years [...] Patients (1 - 1-dose 75+ series) 2017 COVID-19 Vaccine (2023-2 5 season) 2024 Influenza Vaccine 04/04/2025 Hepatitis B Vaccines Aged Out No long er eligible based on patient's age to complete this topic Insurance [employer] [facility] - PPO MEDICARE PART A & B Care Teams Assembler [employer] Spider Relationship Specialty Start Date End Date Pcp, No PCP - General General Medicine 11/19/24
--- OUTSIDE RECORDS SUMMARY | 2025-04-07 17:57 | XMS_ITS | Patient Health Record ---
[facility] Address [address] [facility] [place] [address] Care Team Providers Care Stone Unloader Name Role Phone Ancelmo Chaudhary MD Primary Care Provider Rasheed Tirado Unavailable [phone] Allergies Allergen (clinical drug ingredient) Drug/Non Drug [...] directed Active AFO-fixed . 1 . Wear daily; Dura tion: . 09/07/2023 Active AFO-Hinged as directed Wear Arlyn ly; Duration: as needed 09/07/2023 Active amLODIPine Besy-Benazepril HCl 5-10 MG as directed Orally Active Lisinopril 40 MG 1 tablet Orally Once a day; Duration: 30 day(s) Active Pantoprazole Sodium 40 MG 1 tablet Orall y Once a day; Duration: 30 day(s) Active Plavix 75 MG 1 tablet Orally Once a day Active Amlodipine & Diet Manage Prod Active Lisinopril 40 MG 1 tablet Orally Once a day Active Pantoprazole Sodium 40 MG Orally Active Celecoxib 200 MG Orally Act amelia Plavix 75 MG 1 tablet Orally Once a day; Duration: 30 day(s) Active Celecoxib 200 MG 1 capsule with food Orally Once a day; Duration: 30 day(s) Active Atorvastatin Calcium 10 MG 1 tablet Oral ly Once a day; Duration: 30 day(s) Active Immunizations Vaccine Route Administration [...] Status Risk Notes Problem Acquired hallux valgus (31384402) Hallux valgus (acquired), left foot (M20.12) Active confirmed Problem Localized, primary osteoarthritis of the ankle and/or foot (961409000) Primary osteoarthriti s, left ankle and foot (M19.072) Active confirmed Problem Acquired hallux valgus (83492255) Hallux valgus (acquired), right foot (M20.11) Active confirmed Problem Arthritis of left ankle (0663765301646985) Arthritis of left ankle (M19.072) Active confirmed Plan Of Treatment Pending Test Test Name Order Date X ray : Ankle, left 3V 09/07/2023 X ray : Foot, left 3V 09/07/2023 X ray : Foot, left 3V 07/10/2018 X ray : Foot, left 3V 02/26/2019 X ray : Foot, right 3V 09/07/2023 [id number], [id number]/INJECT, JOINT/BURSA 0 02/26/2019, [id number]/INJECT, JOINT/BURSA 0 12/28/2015- Ganglion Cyst Injection/Aspiratio n 05/30/2011 Insurance Providers Payer Name Payer Address Payer Phone Subscriber Number Group Number Insured Name Patient Relationship to Insured Coverage Start Date Coverage End Date Medicare National [employer]t [employer] [address] [place] [address] [id number] Rosmery Thompson Self - [facility] is the insured [facility] [address] [place] [address] [id number] Rosmery Thompson Self - patient is the insured Medical (General) History Medical History History ICD Code joint implants/screws reflux mumps measles hypertension chicken pox Cholesterol Arthritis Broken bones CAD (Cholesterol) covid-19 Surgical History Surgery Date(Month/Year) back surgery 2004 foot surgery hysterectomy 1985 Left knee surgery 09/2017 Left meniscus shaved 11/2017 Mod Browne L 06/27/2018 Compound Fracture of Ankle 2019
--- OUTSIDE RECORDS SUMMARY | 2025-04-07 17:57 | XMS_ITS | Clinical Summary ---
Author Organization [facility] Address [address] [address] Phone Care Team Providers Care Steward/Stewardess Third Class Name Role Phone Ancelmo Chaudhary MD Primary Care Provider [phone] Allergies Active Allergy Reactions Criticality Noted Date Comments Sulfamethoxazole Hives Medium 04/16/2019 Trimethoprim Hives Medium 04/16/2019 Medications acetaminophen 325 mg Cap Take 650 mg by mouth every 6 (six) hours as needed (pain, temp above 100, headache). 04/16/2019 Active cephalexin (KEFLEX) 500 MG capsule Take 500 mg by mouth 4 (four) times a day. 04/16/2019 Active oxyCODONE 5 MG immediate release tablet Take 5 mg by mouth every 4 (four) hours as needed for moderate pain or severe pain. 04/16/2019 Active amLODIPine (NORVASC) 10 MG tablet Take 10 mg by mouth daily. 04/16/2019 Active atorvastatin (LIPITOR) 10 MG tablet Take 10 mg by mouth daily. 04/16/2019 Active calcium carbonate-vitam in D3 600 mg (1,500 mg)-2,500 unit Cap Take 1 capsule by mouth daily. 04/16/2019 Active lisinopril (PRINIVIL,ZESTR IL) 40 MG tablet Take 40 mg by mouth daily. 04/16/2019 Active celecoxib (CELEBREX) 200 MG capsule Take 200 mg by mouth daily. 04/16/2019 Active pantoprazole sodium (PANTOPRAZOLE ORAL) Take 40 mg by mouth daily. 04/16/2019 Active Social History Tobacco Use Types Packs/Day Years Used Date Smoking Tobacco: Never Assessed Education Answer Date Recorded Are you interested in more education? Not on tequila e 12/30/2022 Are you concerned about learning? Not on file 12/30/2022 No 12/30/2022 No 12/30/2022 Digital Access Answer Date Recorded No 01/31/2023 No 01/31/2023 No 01/31/2023 Reliable internet access at home? Not on file 01/31/2023 Device with a working camera? Not on file Comments Unknown Sex and Gender Information Value Date Recorded Sex Assigned at Not on file Legal Sex Female 4:00 PM EDT Gender Identity Not on file Sexual Orientation Not on file Last Filed Vital Signs Vital Sign Reading Time Taken Comments Blood Pressure 124/66 06/05/2019 3:38 PM EDT Pulse 65 06/05/2019 3:38 PM EDT Temperature 37 C (98.6 F) 06/05/2019 3:38 PM EDT Respiratory Rate 16 06/05/2019 3:38 PM EDT Oxygen Saturation 96% 06/05/2019 3:38 PM EDT Inhaled Oxygen Concentration - - Weight - - Height - - Body Mass Index - - Plan of Treatment Not on file Medical Devices Not on file Insurance [place] [id number] MEDICARE PART A & B MEDICARE PART A & B MEDICARE PART A & B MEDICARE PART A & B MEDICARE PART A & B MEDICARE PART A & B MEDICARE PART A & B MEDICARE PART A & B Care Teams Steward/Stewardess Third Class Relationship Specialty Start Date End Date Ancelmo Chaudhary MD [address] [place] [address] PCP - General Internal Medicine 04/15/19 Additional Source Comments The information contained in this document represents components of the legal health record. It is not the complete legal health record.[facility]
[2025-04-07 18:05] LABS: INTERNATIONAL NORM RATIO 1.0 (0.9-1.1); Prothrombin Time 11.7 SEC (10.9-12.4)
[2025-04-07 18:07] LABS: Partial Thromboplastin Time 41.1 SEC (26.7-34.1)
--- NOTE | 2025-04-07 18:07 | PC.NURSE ---
84 F coming from home, c/o some heart palpitations, HR elevated when checked BP this morning. Pt arrived in afib, denies CP or SOB. RR even and unlabored, denies pain or discomfort. A+Ox4 and ambulatory.
[2025-04-07 18:09] LABS: Alanine Aminotransferase 28 U/L (0-31); Albumin Level 4.5 g/dL (3.5-5.0); Alkaline Phosphatase 98 U/L (39-117); Anion Gap 11 (12-20); Aspartate Amino Transferase 27 U/L (5-31); Blood Urea Nitrogen 17 mg/dL (9-16); Calcium 9.3 mg/dL (8.4-10.2); Carbon Dioxide 25 mmol/L (22-29); Chloride 112 mmol/L (96-108); Creatinine Clr Calc Pharmacy 43.1; Estimated Glomerular Filt Rate 59; Magnesium 2.2 mg/dL (1.6-2.6); Potassium 4.2 mmol/L (3.3-5.1); Sodium 144 mmol/L (135-145); Total Protein 7.2 g/dL (6.5-8.0)
[2025-04-07 18:15] LABS: B Type Natriuretic Peptide 310 pg/mL (<100)
[2025-04-07 18:16] LABS: Troponin-I High Sensitivity 3.9 ng/L (<3.5-17.0)
[2025-04-07 18:19] LABS: Resp Syncy Virus RNA Qual PCR NEGATIVE (Negative); SARS COV2 PCR INHOUSE NEGATIVE (Negative)
[2025-04-07 18:19] LABS: Hematocrit 38.0 % (37.0-47.0); Hemoglobin 13.0 g/dl (12.0-16.0); Imm Gran Abs Auto 0.05 X10*3/uL (0.00-0.03); Imm Gran Pct Auto 0.6 % (0.0-0.4); Lymphocytes Absolute Auto 1.5 X10*3/uL (1.2-4.9); Mean Corpuscular HGB Conc 34.2 g/dl (31.0-35.0); Mean Corpuscular Hemoglobin 32.6 pg (27.0-33.0); Mean Corpuscular Volume 95.2 fL (80.0-98.0); NRBC Abs Auto 0.000 X10*3/uL (0.0-0.012); NRBC Pct Auto 0.0 /100WBC (0.0-0.2); Platelet Count 221 X10*3/uL (160-400); Red Blood Count 3.99 X10*6/uL (4.20-5.50); White Blood Count 8.0 X10*3/uL (4.8-10.8)
--- NOTE | 2025-04-07 19:15 | PM.IMHP ---
History of Present Illness Date of Service: 04/07/25 Attending physician on admission: Brandon Sofia Chief Complaint: Shortness on breath Rosmery Gutierrez is a very pleasant 84 years old woman with past medical history significant for hypertension and hyperlipidemia presents to the emergency department complaining of shortness of breath on exertion for awhile. This events are associated with palpitations. She denied any headache, dizziness, chest pain, cough, fever or chills. She did not report any acute gastrointestinal or genitourinary symptoms. She also denied edema to the lower extremities. She does take Plavix for clot in her brain , however, per primary provider it has been prescribed for CAD. This was prescribed by her primary doctor after evaluating the results of brain MRI (brain MRI in 2020 showed chronic lacunar infarct within the left thalamus). She did not report history of strokes and denied use of aspirin. She denied tobacco smoking, alcohol abuse or illicit drug use. Patient denied history of CO, type 2 diabetes mellitus, CHF and stroke. In the ED, she was found to have tachycardia consistent with atrial fibrillation. Her last BP is 134/93 and there is no fever. There is no tachypnea and oxygen saturation is normal on room air. CBC is unremarkable. INR is 1.0. There are no significant electrolyte imbalances except for hyperchloremia 112. BUN is 17 and creatinine 0.91. BNP is 310. CXR showed increased opacity in the right lower base: Possible overlying soft tissue, atelectasis or infiltrates. ECG showed atrial fibrillation with rapid ventricular response, HR [address] and T-wave abnormalities. ED tx: Metoprolol 5 mg IV, metoprolol 25 mg p.o. and aspirin 325 mg p.o.. Review of Systems Review of Systems: All 12 systems were reviewed and normal except as noted in HPI. [facility] Medical History Overweight with body mass index (BMI) of 28 to 28.9 in adult DNR (do not resuscitate) (~01/31/25) DNI (do not intubate) (~01/31/25) Coronary artery disease GERD (gastroesophageal reflux disease) Chronic pain Hyperlipidemia LDL goal <100 Establishing care with new doctor, encounter for Essential hypertension Dual energy x-ray photon absorptiometry (DEXA) scan declined (~01/31/25) History of mammogram (~10/11/24) HTN (hypertension) Family History Father No problems noted. Mother Heart problem Cancer Surgical History History of colonoscopy Social History Housing: [facility] Are you a primary director critical care to a significant other at home: No Do you presently have visiting nurse or other home services: No Alcohol intake: current Alcohol intake frequency: 0-2 drinks per day Alcohol type: beer Patient Tobacco Use Status: Former Tobacco user Smoked in Last 30 Days: No Use of substances other than those prescribed or required for medical reasons: No Advance Directives: No Advance Directives Information Provided: No Nutrition Risks: No Nutritional Risk service: No Current occupational status: retired Cognitive needs: No Hearing needs: Yes (b/l hearing aids) Vision needs: Yes (rx glasses) Meds Allergies Allergy/AdvReac Type Severity Reaction Status Date / Time sulfamethoxazole (From Allergy Mild RASH Verified 04/07/25 17:13 Bactrim) trimethoprim (From Bactrim) Allergy Mild RASH Verified 04/07/25 17:13 Sulfa (Sulfonamide Allergy Unknown hives Verified 04/07/25 17:13 Antibiotics) Active Medications: Current Medications Acetaminophen (Acetaminophen 325 Mg Tablet) 975 mg PO Q6H PRN PRN Reason: Pain, Mild 1-3,fever,headache Calcium Carbonate (Calcium Carbonate 750 Mg Tab.Chew) 750 mg PO Q4H PRN PRN Reason: Heartburn Magnesium Hydroxide (Milk Of Magnesia 30 Ml Oral.Susp) 30 ml PO DAILY PRN PRN Reason: Constipation Melatonin (Melatonin 3 Mg Tablet) 6 mg PO BEDTIME PRN PRN Reason: Insomnia Metoprolol Tartrate (Metoprolol Tartrate 25 Mg Tablet) 25 mg PO BID CLARA; Protocol Metoprolol Tartrate (Metoprolol Tartrate 5 Mg/5 Ml Vial) 5 mg IVPUSH ONCE PRN; Protocol PRN Reason: HR >110 bpm sustaining Sodium Chloride (0.9 % Sodium Chloride Flush 3 Ml Syringe) 3 ml IVFLUSH [facility] Home Medications ?Medication ?Instructions ?Recorded ?Confirmed ?Last Taken ?Type celecoxib 200 mg capsule 200 mg PO BID pain 01/24/23 04/07/25 04/07/25 History lisinopril 40 mg tablet 40 mg PO DAILY 01/24/23 04/07/25 04/07/25 History pantoprazole 40 mg tablet,delayed 40 mg PO DAILY@0630 01/24/23 04/07/25 04/07/25 History release atorvastatin 10 mg tablet 10 mg PO BEDTIME 04/07/25 04/07/25 04/06/25 History Physical Exam Vital Signs and Narrative: Vital Signs: Last Vital Signs Temp 97.7 F 04/07/25 19:02 Pulse 102 H 04/07/25 19:02 Resp 14 04/07/25 19:02 BP 134/93 H 04/07/25 19:02 Pulse Ox 94 04/07/25 19:02 O2 Del Method Room Air 04/07/25 19:02 BMI result Body Mass Index 27.5 Constitutional - Awake and Alert, No apparent distress HEENT - PER, EOMI Heart - Irregular rhythm, normal rate, no murnurs. Lungs - Normal lung expansion, Normal respiratory effort, No respiratory distress, CTA bilaterally Abdomen - Nontenderness Extremities - no calf tenderness bilaterally, no swelling Musculoskeletal - Normal inspection, normal ROM Skin - Warm/Dry. No pallor. Neurological - Alert & oriented x3. Moving all extremities spontaneously. Normal speech. Psychological - Appropriate affect Results Labs 04/07/25 17:49 04/07/25 17:49 Labs: Laboratory Results - last 24 hr 04/07/25 04/07/25 17:37 17:49 MCV 95.2 MCH 32.6 MCHC 34.2 RDW 14.2 Plt Count 221 MPV 9.6 Immature Gran % (Auto) 0.6 H Neut % (Auto) 63.9 Lymph % (Auto) 18.8 L [place] % (Auto) 12.9 H Eos % (Auto) 3.0 Baso % (Auto) 0.8 Lymph # (Auto) 1.5 [place] # (Auto) 1.0 Eos # (Auto) 0.2 Baso # (Auto) 0.1 Abs Immat Gran (auto) 0.05 H Absolute Neuts (auto) 5.1 Absolute Nucleated RBC 0.000 Nucleated RBC % (auto) 0.0 PT 11.7 INR 1.0 APTT 41.1 H Anion Gap 11 L Estim Creat Clear Calc 43.1 Estimated GFR 59 Random Glucose 113 Calcium 9.3 D Magnesium 2.2 Total Bilirubin 0.5 AST 27 ALT 28 Alkaline Phosphatase 98 B-Natriuretic Peptide 310 H Total Protein 7.2 Albumin 4.5 Influenza Type A (PCR) NEGATIVE Influenza Type B (PCR) NEGATIVE RSV RNA Qual (PCR) NEGATIVE SARS-CoV-2 RNA (RT-PCR) NEGATIVE Assessment and Plan (1) Atrial fibrillation, new onset: Status: Acute (2) Essential hypertension: Status: Acute (3) Hyperlipidemia: Qualifiers: Hyperlipidemia type: unspecified Qualified Code(s): E78.5 - Hyperlipidemia, unspecified Status: Acute Plan Rosmery Gutierrez is a 84 y/o woman presents with: Atrial fibrillation with rapid ventricular response, improving. Telemetry. Continue metoprolol 50 mg p.o. b.i.d.. Metoprolol 5 mg IV p.r.n. Obtain TTE. Check TSH. [id number] is high and pt will need anticoagulation, patient is on Plavix -according to PCP she is on it for CAD, however, pt denied hx of CO or heart disease; pt thinks she is taking Plavix for a clot in her brain that was seen on an old [facility] MRI, denied hx of stroke. (she had a brain MRI in 2020 that showed she had chronic lacunar infarct within the left thalamus). Will request cardiology consult to help us decide if Plavix should be discontinued or okay to give both (Plavix and anticoagulant). Will order Lovenox 60 mg SQ X1 for now. Hypertension. Continue amlodipine and lisinopril (will decrease lisinopril to 20 mg as she was just started on metoprolol). Hyperlipidemia. Continue statin. GERD. Continue PPI. Hx of coronary artery disease. On Plavix and statin. Not taking aspirin. Code status: DNR/DNI DVT prophylaxis: Lovenox. Patient will need hospitalization for at least 2 midnights for atrial fibrillation with rapid ventricular response treatment with IV metoprolol as needed, she will need continuous cardiac monitoring, and anticoagulation evaluation by subspecialty. Quality Stroke Does the patient have a stroke diagnosis?: No VTE Prior VTE?: No VTE Risk Level:: Medical - moderate - high VTE Device Contraindication: Treatment Not Indicated VTE Drug Contraindication: N/A - Med Ordered
--- NOTE | 2025-04-07 19:50 | PHA.MEDREC ---
Addendum entered by Lizz Mckeon RPh 04/07/25 19:59: Reviewed by [facility] Original Note: Pharmacy Consult ? Medication Reconciliation Pharmacy has completed the medication reconciliation. Spoke to patient to confirm med list. Patient had a list of her medications with her. Patient states she had all of her morning medications today.
[2025-04-07 19:57] LABS: Thyroid Stimulating Hormone 2.39 uIU/mL (0.32-4.0)
[2025-04-07] MEDS: 0.9 % Sodium Chloride Flush 3 ML SYRINGE IVFLUSH (23:26)
[2025-04-08] VITALS (11 sets, daily range): BP systolic 100–135; BP diastolic 58–87; PULSE 71–107; RESP 12–18; TEMP 36.1–36.9; O2SAT 91–96; BMI 27.7
[2025-04-08 05:29] LABS: MANUAL DIFF FLAG NO
[2025-04-08 05:32] LABS: Hematocrit 32.8 % (37.0-47.0); Hemoglobin 11.6 g/dl (12.0-16.0); Imm Gran Abs Auto 0.03 X10*3/uL (0.00-0.03); Imm Gran Pct Auto 0.5 % (0.0-0.4); Lymphocytes Absolute Auto 1.5 X10*3/uL (1.2-4.9); Mean Corpuscular HGB Conc 35.4 g/dl (31.0-35.0); Mean Corpuscular Hemoglobin 33.0 pg (27.0-33.0); Mean Corpuscular Volume 93.2 fL (80.0-98.0); NRBC Abs Auto 0.000 X10*3/uL (0.0-0.012); NRBC Pct Auto 0.0 /100WBC (0.0-0.2); Platelet Count 162 X10*3/uL (160-400); Red Blood Count 3.52 X10*6/uL (4.20-5.50); White Blood Count 5.6 X10*3/uL (4.8-10.8)
[2025-04-08 05:46] LABS: Anion Gap 12 (12-20); Blood Urea Nitrogen 18 mg/dL (9-16); Calcium 8.4 mg/dL (8.4-10.2); Carbon Dioxide 22 mmol/L (22-29); Chloride 112 mmol/L (96-108); Creatinine Clr Calc Pharmacy 58.5; Estimated Glomerular Filt Rate > 60; Magnesium 2.0 mg/dL (1.6-2.6); Potassium 3.7 mmol/L (3.3-5.1); Sodium 142 mmol/L (135-145)
--- NOTE | 2025-04-08 07:00 | CA_ITS ---
Transthoracic Echocardiogram Patient (Last, First, Middle): Rosmery Gutierrez E Gender: Female Date of : 1940 Age: 84 Procedure Date: 04/08/2025 Procedure Type: Transthoracic Echocardiogram [place] [facility] [place]: 157.48 cm Weight: 68.04 kg BSA: 1.69 m2 Heart Rate: 94 bpm BP: 122 / 83 mmHg Hand Sewer: TO Referring MD: Brandon Sofia MD Symptoms: Rapid a-fib, new onset Study Quality: Adequate ECG Rhythm: Atrial Fibrillation Conclusions: - The left ventricular systolic function is mildly decreased. The calculated ejection fraction is 44% by biplane method. - No obvious valvular pathology seen on this study. Findings Left Ventricle Normal left ventricular cavity size. There is normal left ventricular wall thickness. The left ventricular systolic function is mildly decreased. The calculated ejection fraction is 44% by biplane method. There is mild global hypokinesis. Diastolic function is indeterminate on the basis of available data. Right Ventricle Normal right ventricular cavity size. There is mildly decreased right ventricular systolic function. Atria The left atrium is mildly dilated. The right atrium is normal in size. Aortic Valve There is a normal trileaflet aortic valve. There is mild calcification of the aortic valve. There is no aortic valve stenosis. There is no aortic valve regurgitation. Mitral Valve The mitral valve appears normal. There is mild mitral valve regurgitation. There is no mitral valve stenosis. Pulmonic Valve The pulmonic valve is likely normal. Tricuspid Valve There is mild tricuspid valve regurgitation. There is no evidence of pulmonary hypertension. Great Vessels The asc aorta is normal in size. Venous The inferior vena cava is normal in size and collapses greater than 50% with inspiration. Pericardium/Pleural There is no evidence of pericardial effusion. Prior Study Comparison No prior study available for comparison. Recommendations, Care & Conclusions No obvious valvular pathology seen on this study. Measurements 2D Linear Measurements IVSd: 0.88 0.6-0.9/0.6-1.0 cm LVIDd: 4.39 3.9-5.3/4.2-5.9 cm LVIDd Index: 2.60 2.4-3.2/2.2-3.1 cm/m2 LVIDs: 3.46 2.0-3.6 cm LVPWd: 0.89 0.7-1.1 cm LA Diam: 4.00 2.7-3.8/3.0-4.0 cm LAIDs Index: 2.37 1.5-2.3 cm/m2 LV Mass: 154.63 67-162/88-224 g LV Mass Index: 91.50 43-95/49-115 g/m2 LVOT Diam: 2.10 3.0+(-)1.3 cm 2D Systolic Function EF 4C: 42.70 >55% EF 2C: 46.80 >55% EF BiP: 44.40 >55% Mitral Valve MV Pk E: 0.65 MV Decel Time: 136.00 E'Lateral: 7.26 E'Medial: 6.10 E/E' Med: 10.70 E/E' Lat: 9.00 PHT: 40.00 MVA PHT: 5.50 Decel Ida: 4.79 Aortic Valve AoV Pk Gee: 0.91 AoV Pk Grad: 3.00 LVOT LVOT Pk Gee: 0.58 LVOT Mn Gee: 0.42 LVOT VTI: 0.11 LVOT Pk Grad: 1.00 LVOT Mn Grad: 1.00 LVOT Diam: 2.10 LVOT Area: 3.46 Diastolic Function MV Pk E: 0.65 E'Medial: 6.10 E/E' Med: 10.70 E' Laterial: 7.26 E/E' Lat: 9.00 Right Ventricle TAPSE (mm): 16.40 TVS' Gee: 7.29 Tricuspid Valve TR Pk Ege: 2.25 TR Pk Grad: 20.00 RA Press: 3.00 RVSP: 23.00 Great Vessels Aorta Sinus of Valsalva: 3.02 2.0-3.[address] Ridge: 2.71 1.7-3.4 cm Ao Asc: 3.20 2.1-3.4 cm Updated in Other Vendor System with Status of Final Abhilash Duque MD electronically signed on 04/08/2025 12:43:19 PM with status of Final
[2025-04-08] MEDS: 0.9 % Sodium Chloride Flush 3 ML SYRINGE IVFLUSH ×2 (07:47→15:25)
--- NOTE | 2025-04-08 08:11 | PC.NURSE ---
pt is a bit anxious this morning, sts she wants to go home. A+Ox4, cooperative, ambulatory. RR even and unlabored, denies SOB, CP, any pain or discomfort.
--- NOTE | 2025-04-08 09:22 | P.CONCA_ITS ---
History of Present Illness History of Present Illness Date of Service: 04/08/25 Chief complaint: Atrial fibrillation with RVR, new onset Narrative: This is a cardiology consultation regarding atrial fibrillation. Patient has a history of hypertension. Denies any previous cardiac history but apparently there is a history of a blood clot in the brain which apparently happened after COVID short and for that reason, she states she takes Plavix. Current admissions because of atrial fibrillation. She states that she has been checking her own blood pressure and that showed rapid heart rates and she called her PCP who advised her to go to the ER. She has been diagnosed with atrial fibrillation rapid rate. In terms of symptoms, she states there is some heaviness type feeling in the chest and H&P documents shortness of breath on exertion. Currently, she is anxious to go home but otherwise feels okay. Review of Systems 2 Review of Systems: Yes all other systems are reviewed and are negative Constitutional: Constitutional: Reports as per HPI and Reports no additional constitutional complaints Eyes: Eyes: Reports as per HPI and Denies no additional eye complaints ENT: Denies system reviewed and no additional complaints, except as documented and Reports as per HPI Cardiovascular: Cardiovascular: Reports as per HPI, Reports no additional cardiovascular complaints, Denies acrocyanosis, Denies cool extremities, Denies chest pain, Denies leg edema, Denies lightheadedness, Denies palpitations and Reports dyspnea Respiratory: Respiratory: Reports as per HPI, Denies no additional respiratory complaints and Reports dyspnea Gastrointestinal: Gastrointestinal: Reports as per HPI and Denies no additional gastrointestinal complaints Genitourinary: Genitourinary: Reports as per HPI Musculoskeletal: Musculoskeletal: Reports no additional musculoskeletal complaints and Reports as per HPI Integumentary/Breasts: Skin/Breast: Reports system reviewed and no additional complaints, except as docu Neurologic: Reports system reviewed and no additional complaints, except as documented and Reports as per HPI Psychiatric: Psychiatric: Reports no additional psychiatric complaints and Reports as per HPI Endocrine: Endocrine: Reports no additional endocrine complaints, Reports as per HPI and Denies palpitations Hematologic/Lymphatic: Hematologic/Lymphatic: Reports no additional hematologic/lymphatic complaints and Reports as per HPI Allergic/Immunologic: Allergic/Immunologic: Reports no additional allergic/immunologic complaints and Reports as per HPI [facility] Past Medical History Medical History Overweight with body mass index (BMI) of 28 to 28.9 in adult DNR (do not resuscitate) (~01/31/25) DNI (do not intubate) (~01/31/25) Coronary artery disease GERD (gastroesophageal reflux disease) Chronic pain Hyperlipidemia LDL goal <100 Establishing care with new doctor, encounter for Essential hypertension Dual energy x-ray photon absorptiometry (DEXA) scan declined (~01/31/25) History of mammogram (~10/11/24) HTN (hypertension) Family History Family History Father No problems noted. Mother Heart problem Cancer Surgical History Surgical History History of colonoscopy Social History Social History Housing: [facility] Are you a primary lawn caretaker to a significant other at home: No Do you presently have visiting nurse or other home services: No Alcohol intake: current Alcohol intake frequency: 0-2 drinks per day Alcohol type: beer Patient Tobacco Use Status: Former Tobacco user Smoked in Last 30 Days: No Use of substances other than those prescribed or required for medical reasons: No Advance Directives: No Advance Directives Information Provided: No Nutrition Risks: No Nutritional Risk service: No Current occupational status: retired Cognitive needs: No Hearing needs: Yes (b/l hearing aids) Vision needs: Yes (rx glasses) Meds Allergies Allergy/AdvReac Type Severity Reaction Status Date / Time sulfamethoxazole (From Allergy Mild RASH Verified 04/07/25 17:13 Bactrim) trimethoprim (From Bactrim) Allergy Mild RASH Verified 04/07/25 17:13 Sulfa (Sulfonamide Allergy Unknown hives Verified 04/07/25 17:13 Antibiotics) Active Medications: Current Medications Acetaminophen (Acetaminophen 325 Mg Tablet) 975 mg PO Q6H PRN PRN Reason: Pain, Mild 1-3,fever,headache Amlodipine Besylate (Amlodipine Besylate 10 Mg Tablet) 10 mg PO DAILY CLARA; Protocol Last Admin: 04/08/25 08:55 Dose: 10 mg Atorvastatin Calcium (Atorvastatin Calcium 10 Mg Tablet) 10 mg PO BEDTIME CLARA Last Admin: 04/07/25 21:04 Dose: 10 mg Calcium Carbonate (Calcium Carbonate 750 Mg Tab.Chew) 750 mg PO Q4H PRN PRN Reason: Heartburn Clopidogrel Bisulfate (Clopidogrel Bisulfate 75 Mg Tablet) 75 mg PO DAILY [facility] Last Admin: 04/08/25 08:54 Dose: 75 mg Lisinopril (Lisinopril 20 Mg Tablet) 20 mg PO DAILY [facility]; Protocol Last Admin: 04/08/25 08:55 Dose: 20 mg Magnesium Hydroxide (Milk Of Magnesia 30 Ml Oral.Susp) 30 ml PO DAILY PRN PRN Reason: Constipation Melatonin (Melatonin 3 Mg Tablet) 6 mg PO BEDTIME PRN PRN Reason: Insomnia Metoprolol Tartrate (Metoprolol Tartrate 25 Mg Tablet) 25 mg PO BID [facility]; Protocol Last Admin: 04/08/25 08:55 Dose: 25 mg Metoprolol Tartrate (Metoprolol Tartrate 5 Mg/5 Ml Vial) 5 mg IVPUSH ONCE PRN; Protocol PRN Reason: HR >110 bpm sustaining Omeprazole (Omeprazole 20 Mg Capsule.Dr) 20 mg PO DAILY@629 [facility] Last Admin: 04/08/25 06:02 Dose: 20 mg Sodium Chloride (0.9 % Sodium Chloride Flush 3 Ml Syringe) [facility] Last Admin: 04/08/25 07:47 Dose: 3 ml Home Medications ?Medication ?Instructions ?Recorded ?Confirmed ?Last Taken ?Type celecoxib 200 mg capsule 200 mg PO BID pain 01/24/23 04/07/25 04/07/25 History lisinopril 40 mg tablet 40 mg PO DAILY 01/24/23 0812/2704/07/25 History pantoprazole 40 mg tablet,delayed 40 mg PO DAILY@0630 01/24/23 04/07/25 04/07/25 History release atorvastatin 10 mg tablet 10 mg PO BEDTIME 04/07/2504/06/25 History Physical Exam 2 Vital Signs: Vital Signs: Last Vital Signs Temp 97.7 F 04/08/25 06:01 Pulse 107 H 04/08/25 08:55 Resp 12 04/08/25 07:46 BP 126/58 L 04/08/25 08:55 Pulse Ox 96 04/08/25 07:46 O2 Del Method Room Air 04/08/25 07:46 BMI result Body Mass Index 27.5 Const: General: comfortable and no acute distress O rientation/consciousness: patient oriented x3 HEENT: Other: Unremarkable Head: Yes normal to inspection Neck: Neck: Yes normal visual inspection Chest: Chest palpation & inspection: normal inspection of the chest Resp: Auscultation: clear to auscultation bilaterally Cardio: Palpation: normal PMI Heart sounds: S1 normal heart sound present, S2 normal heart sound present, no gallops, no murmurs and no rubs GI: Palpation (GI): Soft to palpation Back/Spine/Pelvis: Other: unremarkable Skin: General skin exam: no rashes or lesions noted Neuro: General: patient oriented x3 Extrem: General: Yes normal to inspection Psych: Mental Status: mental status grossly normal Objective Labs and Meds 04/08/25 04:52 04/08/25 04:52 Lab results: Laboratory Results - last 24 hr 04/07/25 04/07/25 04/08/25 17:37 17:49 04:52 WBC 8.0 5.6 RBC 3.99 L 3.52 L Hgb 13.0 11.6 L Hct 38.0 32.8 L MCV 95.2 93.2 MCH 32.6 33.0 MCHC 34.2 35.4 H RDW 14.2 14.2 Plt Count 221 162 D MPV 9.6 9.6 Immature Gran % (Auto) 0.6 H 0.5 H Neut % (Auto) 63.9 53.7 Lymph % (Auto) 18.8 L 26.8 [place] % (Auto) 12.9 H 13.8 H Eos % (Auto) 3.0 4.3 H Baso % (Auto) 0.8 0.9 Lymph # (Auto) 1.5 1.5 [place] # (Auto) 1.0 0.8 Eos # (Auto) 0.2 0.2 Baso # (Auto) 0.1 0.1 Abs Immat Gran (auto) 0.05 H 0.03 Absolute Neuts (auto) 5.1 3.0 Absolute Nucleated RBC 0.000 0.000 Nucleated RBC % (auto) 0.0 0.0 PT 11.7 INR 1.0 APTT 41.1 H Sodium 144 142 Potassium 4.2 3.7 Chloride 112 H 112 H Carbon Dioxide 25 22 Anion Gap 11 L 12 BUN 17 H 18 H Creatinine 0.91 0.67 Estim Creat Clear Calc 43.1 58.5 Estimated GFR 59 > 60 Random Glucose 113 96 Calcium 9.3 D 8.4 D Magnesium 2.2 2.0 Total Bilirubin 0.5 AST 27 ALT 28 Alkaline Phosphatase 98 Troponin I High Sens 3.9 B-Natriuretic Peptide 310 H Total Protein 7.2 Albumin 4.5 TSH 2.39 Influenza Type A (PCR) NEGATIVE Influenza Type B (PCR) NEGATIVE RSV RNA Qual (PCR) NEGATIVE SARS-CoV-2 RNA (RT-PCR) NEGATIVE ECG Interpretation: EKG shows atrial fibrillation at a rate of 121/Min. Nonspecific ST-T changes. Prior to this, EKGs from 2021 and that shows sinus rhythm. Assessment and Plan (1) Atrial fibrillation with rapid ventricular response: Status: Acute Plan Atrial fibrillation rapid ventricular response most likely contributing to her symptoms. She has been started on metoprolol 25 mg b.i.d. and her rate is still fast. We can go up on the dose to metoprolol 50 mg q.6 hourly and hold off on the amlodipine. Anticoagulation with Eliquis. Does not need Plavix concurrently. Echocardiogram. We will follow up with you. Procedures Date of Service Date of Service: 04/08/25
--- NOTE | 2025-04-08 10:45 | P.PNIM_ITS ---
Subjective Subjective Date of Service: 04/08/25 Interval History: Patient was seen and examined, cardiology recommendations appreciated. On exam she is awake and alert, pleasant. She denies any shortness of breath, dizziness, lightheadedness or any other concerning symptoms. Eight this morning, out of bed to bathroom voiding without any difficulty. Review of Systems Denies any shortness of breath, chest pain, dizziness, lightheadedness, abdominal pain or discomfort, nausea vomiting or diarrhea Physical Exam 2 Vital Signs: Vital Signs: Last Vital Signs Temp 97.5 F 04/08/25 10:05 Pulse 84 04/08/25 10:05 Resp 16 04/08/25 10:05 BP 122/83 04/08/25 10:05 Pulse Ox 95 04/08/25 10:05 O2 Del Method Room Air 04/08/25 10:05 BMI result Body Mass Index 27.5 Objective Data Active Medications Acetaminophen (Acetaminophen 325 Mg Tablet) 975 mg PO Q6H PRN PRN Reason: Pain, Mild 1-3,fever,headache Amlodipine Besylate (Amlodipine Besylate 10 Mg Tablet) 10 mg PO DAILY [facility]; Protocol On Hold: 04/08/25 09:47 Last Admin: 04/08/25 08:55 Dose: 10 mg Documented By: KATYA Apixaban (Apixaban 5 Mg Tablet) 5 mg PO BID CLARA Atorvastatin Calcium (Atorvastatin Calcium 10 Mg Tablet) 10 mg PO BEDTIME [facility] Last Admin: 04/07/25 21:04 Dose: 10 mg Documented By: JOSE ALEJANDRO Calcium Carbonate (Calcium Carbonate 750 Mg Tab.Chew) 750 mg PO Q4H PRN PRN Reason: Heartburn Clopidogrel Bisulfate (Clopidogrel Bisulfate 75 Mg Tablet) 75 mg PO DAILY CLARA On Hold: 04/08/25 09:47 Last Admin: 04/08/25 08:54 Dose: 75 mg Documented By: KATYA Lisinopril (Lisinopril 20 Mg Tablet) 20 mg PO DAILY [facility]; Protocol Last Admin: 04/08/25 08:55 Dose: 20 mg Documented By: KATYA Magnesium Hydroxide (Milk Of Magnesia 30 Ml Oral.Susp) 30 ml PO DAILY PRN PRN Reason: Constipation Melatonin (Melatonin 3 Mg Tablet) 6 mg PO BEDTIME PRN PRN Reason: Insomnia Metoprolol Tartrate (Metoprolol Tartrate 50 Mg Tablet) 50 mg PO RQ6H [facility]; Protocol Omeprazole (Omeprazole 20 Mg Capsule.Dr) 20 mg PO DAILY@0630 [facility] Last Admin: 04/08/25 06:02 Dose: 20 mg Documented By: JOSE ALEJANDRO Sodium Chloride (0.9 % Sodium Chloride Flush 3 Ml Syringe) 3 ml IVFLUSH QSHIFT [facility] Last Admin: 04/08/25 07:47 Dose: 3 ml Documented By: KATYA Labs 04/08/25 04:52 04/08/25 04:52 Labs: Laboratory Results - last 24 hr 04/07/25 04/07/25 04/08/25 17:37 17:49 04:52 MCV 95.2 93.2 MCH 32.6 33.0 MCHC 34.2 35.4 H RDW 14.2 14.2 Plt Count 221 162 D MPV 9.6 9.6 Immature Gran % (Auto) 0.6 H 0.5 H Neut % (Auto) 63.9 53.7 Lymph % (Auto) 18.8 L 26.8 [place] % (Auto) 12.9 H 13.8 H Eos % (Auto) 3.0 4.3 H Baso % (Auto) 0.8 0.9 Lymph # (Auto) 1.5 1.5 [place] # (Auto) 1.0 0.8 Eos # (Auto) 0.2 0.2 Baso # (Auto) 0.1 0.1 Abs Immat Gran (auto) 0.05 H 0.03 Absolute Neuts (auto) 5.1 3.0 Absolute Nucleated RBC 0.000 0.000 Nucleated RBC % (auto) 0.0 0.0 PT 11.7 INR 1.0 APTT 41.1 H Anion Gap 11 L 12 Estim Creat Clear Calc 43.1 58.5 Estimated GFR 59 > 60 Random Glucose 113 96 Calcium 9.3 D 8.4 D Magnesium 2.2 2.0 Total Bilirubin 0.5 AST 27 ALT 28 Alkaline Phosphatase 98 B-Natriuretic Peptide 310 H Total Protein 7.2 Albumin 4.5 TSH 2.39 Influenza Type A (PCR) NEGATIVE Influenza Type B (PCR) NEGATIVE RSV RNA Qual (PCR) NEGATIVE SARS-CoV-2 RNA (RT-PCR) NEGATIVE Assessment and Plan (1) Atrial fibrillation, new onset: Status: Acute Plan 84-year-old female with a past medical history of hyperlipidemia, coronary artery disease, GERD, hypertension presents to the ED with a new onset of AFib with rapid RVR. She is admitted for continued treatment. Atrial fibrillation with rapid ventricular response Continue to monitor on Telemetry. Metoprolol increased to 50 mg p.o. QID. Hold amlodipine. BP is stable. Heart rate improving, on exam 100 apical and irregular. Results of TTE revealed EF of 44% BNP 310 TSH WNL [id number] score 7. 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 Will need outpatient cardiology follow up. HFrEF Compensated Recent ECHO with LvEF of 44% Appears euvolemic on exam Hypertension/HLD Continue lisinopril 20 mgs daily. Hold amlodipine for now. Continue statin. GERD Continue PPI. Hx of coronary artery disease Continue statin. Not taking aspirin. Code status: DNR/DNI DVT prophylaxis: On Eliquis Quality Stroke Does the patient have a stroke diagnosis?: No VTE Prior VTE?: No VTE Risk Level:: Medical - moderate - high VTE Device Contraindication: Treatment Not Indicated VTE Drug Contraindication: N/A - Med Ordered
--- NOTE | 2025-04-08 13:08 | MHC.CM.PN ---
PT lives in a condo is indepedent has no services her car is in parking lot she will drive herself home dc plan home no services
[2025-04-09 02:15] VITALS: BP 113/67; PULSE 84
[2025-04-09] MEDS: 0.9 % Sodium Chloride Flush 3 ML SYRINGE IVFLUSH ×2 (02:36→07:56)
[2025-04-09 03:06] VITALS: BP 113/67; PULSE 85; RESP 18; TEMP 36.1; O2SAT 93
[2025-04-09 07:31] VITALS: BP 130/79; PULSE 92; RESP 20; TEMP 36.2; O2SAT 94
[2025-04-09 09:11] LABS: MANUAL DIFF FLAG NO
[2025-04-09 09:15] LABS: Hematocrit 36.5 % (37.0-47.0); Hemoglobin 12.8 g/dl (12.0-16.0); Imm Gran Abs Auto 0.02 X10*3/uL (0.00-0.03); Imm Gran Pct Auto 0.4 % (0.0-0.4); Lymphocytes Absolute Auto 1.1 X10*3/uL (1.2-4.9); Mean Corpuscular HGB Conc 35.1 g/dl (31.0-35.0); Mean Corpuscular Hemoglobin 33.1 pg (27.0-33.0); Mean Corpuscular Volume 94.3 fL (80.0-98.0); NRBC Abs Auto 0.000 X10*3/uL (0.0-0.012); NRBC Pct Auto 0.0 /100WBC (0.0-0.2); Platelet Count 188 X10*3/uL (160-400); Red Blood Count 3.87 X10*6/uL (4.20-5.50); White Blood Count 5.3 X10*3/uL (4.8-10.8)
[2025-04-09 09:35] LABS: Blood Urea Nitrogen 14 mg/dL (9-16); Calcium 8.8 mg/dL (8.4-10.2); Creatinine Clr Calc Pharmacy 47.4; Estimated Glomerular Filt Rate > 60
[2025-04-09 09:44] LABS: Anion Gap 15 (12-20); Carbon Dioxide 24 mmol/L (22-29); Chloride 109 mmol/L (96-108); Potassium 4.6 mmol/L (3.3-5.1); Sodium 143 mmol/L (135-145)
--- NOTE | 2025-04-09 10:02 | P.PNCA_ITS ---
Subjective Subjective Date of Service: 04/09/25 Interval history: She states she feels much better. Review of Systems Review of Systems Yes all other systems are reviewed and are negative Constitutional: Reports as per HPI and Reports no additional constitutional complaints Eyes: Reports as per HPI and Denies no additional eye complaints Denies system reviewed and no additional complaints, except as documented and Reports as per HPI Cardiovascular: Reports as per HPI, Reports no additional cardiovascular complaints, Denies acrocyanosis, Denies cool extremities, Denies chest pain, Denies leg edema, Denies lightheadedness, Denies palpitations and Denies dyspnea Respiratory: Reports as per HPI, Denies no additional respiratory complaints and Denies dyspnea Gastrointestinal: Reports as per HPI and Denies no additional gastrointestinal complaints Genitourinary: Reports as per HPI Musculoskeletal: Reports no additional musculoskeletal complaints and Reports as per HPI Skin/Breast: Reports system reviewed and no additional complaints, except as docu Reports system reviewed and no additional complaints, except as documented and Reports as per HPI Psychiatric: Reports no additional psychiatric complaints and Reports as per HPI Endocrine: Reports no additional endocrine complaints, Reports as per HPI and Denies palpitations Hematologic/Lymphatic: Reports no additional hematologic/lymphatic complaints and Reports as per HPI Allergic/Immunologic: Reports no additional allergic/immunologic complaints and Reports as per HPI Physical Exam Vital Signs: Last Vital Signs Temp 97.2 F 04/09/25 07:31 Pulse 92 04/09/25 07:31 Resp 20 04/09/25 07:31 BP 130/79 04/09/25 07:31 Pulse Ox 94 04/09/25 07:31 O2 Del Method Room Air 04/09/25 07:31 BMI result Body Mass Index 27.7 Const General: comfortable and no acute distress Orientation/consciousness: patient oriented x3 HEENT Other: Unremarkable Head: Yes normal to inspection Neck Neck: Yes normal visual inspection Chest Chest palpation & inspection: normal inspection of the chest Resp Auscultation: clear to auscultation bilaterally Cardio Palpation: normal PMI Heart sounds: S1 normal heart sound present, S2 normal heart sound present, no gallops, no murmurs and no rubs GI Palpation (GI): Soft to palpation Back/Spine/Pelvis Other: unremarkable Skin General skin exam: no rashes or lesions noted Neuro General: patient oriented x3 Extrem General: Yes normal to inspection Psych Mental Status: mental status grossly normal Objective Labs and Meds 04/09/25 09:02 04/09/25 09:02 Lab results: Laboratory Results - last 24 hr 04/09/25 09:02 WBC 5.3 RBC 3.87 L Hgb 12.8 Hct 36.5 L MCV 94.3 MCH 33.1 H MCHC 35.1 H RDW 14.1 Plt Count 188 MPV 9.5 Immature Gran % (Auto) 0.4 Neut % (Auto) 63.6 Lymph % (Auto) 20.0 [place] % (Auto) 11.7 H Eos % (Auto) 3.4 Baso % (Auto) 0.9 Lymph # (Auto) 1.1 L [place] # (Auto) 0.6 Eos # (Auto) 0.2 Baso # (Auto) 0.1 Abs Immat Gran (auto) 0.02 Absolute Neuts (auto) 3.4 Absolute Nucleated RBC 0.000 Nucleated RBC % (auto) 0.0 Sodium 143 Potassium 4.6 D Chloride 109 H Carbon Dioxide 24 Anion Gap 15 BUN 14 Creatinine 0.83 Estim Creat Clear Calc 47.4 Estimated GFR > 60 Random Glucose 134 H Calcium 8.8 Progress Note: A&P Assessment and plan (1) Atrial fibrillation with rapid ventricular response: Status: Acute (2) Cardiomyopathy: Status: Acute Plan In the echocardiogram, LVEF is 44%. Probably tachycardia mediated. On telemetry, atrial fibrillation with controlled rate in the 80s. Hence overall, much improved. Continue beta-blockers. Can change to b.i.d. dosing. Can adjust other blood pressure medications accordingly. Continue Eliquis. Hold Plavix. Discharge planning. We will get follow up in clinic. Time Spent With Patient Time: Total time managing care of this patient today ____ minutes. Progress Note: Quality Stroke Does the patient have a stroke diagnosis?: No Procedures Date of Service Date of Service: 04/09/25
--- NOTE | 2025-04-09 10:58 | PM.DS ---
DS: Providers Provider Date of Service: 04/09/25 Date of admission: 04/07/25 19:02 Date of discharge: 04/09/25 Primary care physician: Bill Judd MD Admitting clinician: Brandon Sofia Consults: 04/07/25 19:35 Consult to Cardiology Routine Consulting Provider: [facility] Reason for consultation: Rapid a-fib, new onset [facility] Discharging clinician: Allyson Guerrero DS: Diagnosis Discharge Diagnosis (1) Atrial fibrillation with rapid ventricular response: Start date: 04/07/25 Status: Acute (2) Cardiomyopathy: Start date: 04/07/25 Status: Acute DS: Summary Hospital Course Hospital Course: 84-year-old female with a past medical history of hyperlipidemia, coronary artery disease, GERD, hypertension presents to the ED with a new onset of AFib with rapid RVR. Patient presented from home after she was experiencing shortness of breath for about a month and palpitations. She called her PCP who recommended that she present to ED where she was found to have tachycardia consistent with AFIB with Rapid RVR. In the ED she had no fever, no tachypnea, no hypoxia. Her CBC was unremarkable, INR was 1.0. No significant electrolyte abnormalities, her BNP was 310. EKG showed atrial fib with rapid ventricular response, heart rate of [address] and T-wave abnormalities. In the ED she received metoprolol 5 mg IV and aspirin. Patient had a echocardiogram with a LVEF of 44% most likely tachycardia mediated. She remained on tele with demonstrated AFib with controlled rate in the 80s. She has improved. Continue on beta blockers with b.i.d. dosing. Her amlodipine was initially held, lisinopril decreased to 20 mgs. Her blood pressure has been stable, can adjust as needed. She was started on Eliquis b.i.d. and Plavix is held. She will need follow up with Cardiology and her primary care within 1 week of discharge. Time Attestation Total time managing care of this patient today: 30 mintues. Discharge Coordination Time (in mins): 30 Quality: Safe Use of Opioids Does Pt have an Active Cancer Diagnosis on the Problem List?: No Quality: Stroke Does the patient have a stroke diagnosis?: No Physical Exam Vital Signs: Vital Signs: Last Vital Signs Temp 97.2 F 08/06/25 07:31 Pulse 92 04/09/25 07:31 Resp 20 04/09/25 07:31 BP 130/79 04/09/25 07:31 Pulse Ox 94 04/09/25 07:31 O2 Del Method Room Air 04/09/25 07:31 BMI result Body Mass Index 27.7 Const: General: comfortable and no acute distress Orientation/consciousness: patient oriented x3 HEENT: Other: Unremarkable Head: Yes normal to inspection Neck: Neck: Yes normal visual inspection Chest: Chest palpation & inspection: normal inspection of the chest Resp: Auscultation: clear to auscultation bilaterally Cardio: Palpation: normal PMI Heart sounds: S1 normal heart sound present, S2 normal heart sound present, no gallops, no murmurs and no rubs GI: Palpation (GI): Soft to palpation Back/Spine/Pelvis: Other: unremarkable Skin: General skin exam: no rashes or lesions noted Neuro: General: patient oriented x3 Extrem: General: Yes normal to inspection Psych: Mental Status: mental status grossly normal DS: Data Data Completed and Pending Completed studies during hospitalization [Text1]: Echo - The left ventricular systolic function is mildly decreased. The calculated ejection fraction is 44% by biplane method. - No obvious valvular pathology seen on this study. Labs on day of discharge: Laboratory Results - last 24 hr 04/09/25 09:02 WBC 5.3 RBC 3.87 L Hgb 12.8 Hct 36.5 L MCV 94.3 MCH 33.1 H MCHC 35.1 H RDW 14.1 Plt Count 188 MPV 9.5 Immature Gran % (Auto) 0.4 Neut % (Auto) 63.6 Lymph % (Auto) 20.0 [place] % (Auto) 11.7 H Eos % (Auto) 3.4 Baso % (Auto) 0.9 Lymph # (Auto) 1.1 L [place] # (Auto) 0.6 Eos # (Auto) 0.2 Baso # (Auto) 0.1 Abs Immat Gran (auto) 0.02 Absolute Neuts (auto) 3.4 Absolute Nucleated RBC 0.000 Nucleated RBC % (auto) 0.0 Sodium 143 Potassium 4.6 D Chloride 109 H Carbon Dioxide 24 Anion Gap 15 BUN 14 Creatinine 0.83 Estim Creat Clear Calc 47.4 Estimated GFR > 60 Random Glucose 134 H Calcium 8.8 Discharge Plan Discharge Anticipated Discharge Date/Time: 04/09/25 11:53 Patient Disposition: Home, Self-Care Discharge Diagnosis: New onset AFIB, cardiomyopathy Referrals: Bill Judd MD [Primary Care Provider, Internal Medicine] - 1 Week Discharge Medications: New metoprolol succinate 100 mg tablet extended release 24 hr 100 mg PO BID Qty: 60 0RF apixaban 5 mg tablet 5 mg PO BID Qty: 60 0RF lisinopril 20 mg Tablet 20 mg PO DAILY 30 Days Qty: 30 0RF Protocol: Hold for SBP< HOLD for SBP < : 90 Continued atorvastatin 10 mg tablet 10 mg PO BEDTIME pantoprazole 40 mg tablet,delayed release (DR/EC) 40 mg PO DAILY@0630 amlodipine 10 mg tablet 10 mg PO DAILY Qty: 90 3RF Discontinued clopidogrel 75 mg tablet 75 mg PO DAILY Qty: 90 3RF celecoxib 200 mg capsule 200 mg PO BID lisinopril 40 mg tablet 40 mg PO DAILY Discharge Orders: Discharge Order (Routine); Ordered 04/09/25 Ordered By: Allyson Guerrero Diet: Advance to usual diet Activity on Discharge: As tolerated Stand Alone Forms: Patient Portal Discharge page Print Language: Lithuanian Care Plan Goals: Recovery from AFIB Health Concerns: New Onset AFIB Cardiomyopathy Plan of Treatment: Atrial fib with rapid RVR Now stable on metoprolol XR twice daily Continue Eliquis b.i.d. for stroke prophylaxis Follow up with outpatient Cardiology Cardiomyopathy Likely due to AFIB LVeF 44% Follow up outpatient cardio Hypertension Continue amlodipine and lisinopril at lower dose of 20 mgs daily Check and record blood pressures Follow up with PCP Hyperlipidemia/coronary artery disease Continue Statin, stop Plavix Follow up with primary care GERD Continue Protonix Assessment: As Above Patient Instructions: A-fib (Atrial Fibrillation) (DC)
--- NOTE | 2025-04-09 11:20 | MHC.CM.PN ---
ANTIC PT WILL DC HOME NO SERVICES, PT DECLINES NEED AND IS INDEP/DRIVING, FAMILY AT BEDSIDE FOR TRANSPORT.
[2025-04-09 11:44] VITALS: BP 104/62; PULSE 94; RESP 20; TEMP 36.7; O2SAT 91
== END 2025-04-09 13:13 | disposition home or self-care (01) | DRG 309 ==
LOC: HO.ED 18:36 → HO.EDOVER 19:42 → HO.IMC 04-08 09:13
PROVIDERS: Admitting Provider Internal Medicine; Emergency Provider Emergency Medicine; PCP Internal Medicine; Visit Provider Nurse Practitioner Family
DX: I48.91 Unspecified atrial fibrillation (principal); I50.22 Chronic systolic (congestive) heart failure; I11.0 Hypertensive heart disease with heart failure; I25.10 Atherosclerotic heart disease of native coronary artery without angina pectoris; Z66 Do not resuscitate; I42.9 Cardiomyopathy, unspecified; E78.5 Hyperlipidemia, unspecified; Z20.822 Contact with and (suspected) exposure to COVID-19; Z87.891 Personal history of nicotine dependence; Z79.899 Other long term (current) drug therapy
CPT/HCPCS: 36415; 71045; 80048; 80053; 83735; 83880; 84443; 84484; 85025; 85610; 85730; 87637; 93005; 93306; 99285; J0616; J1650; Q9957

== ENCOUNTER → 2025-04-07 17:35 | Outpatient (BNV) | payer MEDICARE, SELFPAY | PROVIDERS: Emergency Provider Emergency Medicine; PCP Internal Medicine; Visit Provider Radiology Diagnostic Radiology | DX: I49.9 Cardiac arrhythmia, unspecified (principal) | CPT/HCPCS: 71045 ==

== ENCOUNTER 2025-04-07 19:02 | Outpatient (BNV) | payer MEDICARE, SELFPAY | END 2025-04-08 07:00 | PROVIDERS: Admitting Provider Internal Medicine; Emergency Provider Emergency Medicine; PCP Internal Medicine; Visit Provider Internal Medicine | DX: I34.0 Nonrheumatic mitral (valve) insufficiency (principal); I36.1 Nonrheumatic tricuspid (valve) insufficiency; I48.91 Unspecified atrial fibrillation | CPT/HCPCS: 93306 ==

== ENCOUNTER → 2025-04-07 19:02 | Outpatient (BNV) | payer MEDICARE, SELFPAY | PROVIDERS: Admitting Provider Internal Medicine; Emergency Provider Emergency Medicine; PCP Internal Medicine; Visit Provider Internal Medicine | DX: I48.91 Unspecified atrial fibrillation (principal); I10 Essential (primary) hypertension; E78.5 Hyperlipidemia, unspecified | CPT/HCPCS: 99223; 99232 ==

== ENCOUNTER → 2025-04-07 19:02 | Outpatient (BNV) | payer MEDICARE, SELFPAY | PROVIDERS: Admitting Provider Internal Medicine; Emergency Provider Emergency Medicine; PCP Internal Medicine; Visit Provider Internal Medicine | DX: I48.91 Unspecified atrial fibrillation (principal) | CPT/HCPCS: 93010; 99223; 99233 ==

== ENCOUNTER 2025-04-30 14:32 | Outpatient (AMB) | payer MEDICARE, SELFPAY ==
--- OUTSIDE RECORDS SUMMARY | 2024-11-06 06:00 | XMS_ITS ---
Author Organization [facility] Address [address] [place] [address] Care Team Providers Care Commercial Diver Name Role Phone Jet (RETIRED) Ancelmo MCCOY Primary Care Provider Unavailable Marquis Ayala Jr REASON FOR VISIT gerd Encounters Encounter Location Date Provider Diagnosis [facility] [address] [place] [address] 11/06/2024 Marquis Ayala Jr Plan Of Treatment Next Appt Details Provider Name:Marquis bower Jr, 11/26/2025 10:10:00 AM, 10 [facility], [address], [place], [address], Progress Notes * KAY CARTWRIGHT EDOB:[birth year] (85 yo F)Acc No.[id number]:11/06/2024 Progress Notes Patient: Jaci DUVALDieter KAY Dieter Provider: Jaci Ayala MD :1940 A ge:84 Y S ex:Female Date:11/06/2024 Address:[address] [place] [address] [place] Pcp:Ancelmo Chaudhary (RETIRED) MD Subjective: * Chief [...] 11/06/2024 Generated for Jackie steen/Alanna/Gabriel on: 0 04/30/2025 03:31 PM EDT
[2025-04-30 14:39] VITALS: BP 118/78; PULSE 86; BMI 27.4
--- NOTE | 2025-04-30 14:39 | A.OFFVIS_ITS ---
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 Required: No Allergies sulfamethoxazole (From Bactrim) Allergy (Mild, Verified 04/07/25 17:13) RASH trimethoprim (From Bactrim) Allergy (Mild, Verified 04/07/25 17:13) RASH Sulfa (Sulfonamide Antibiotics) Allergy (Unknown, Verified 04/07/25 17:13) hives Medication List - Last Reconciled 04/30/25 by Blaze Webster NP amlodipine 10 mg PO DAILY apixaban 5 mg PO BID atorvastatin 10 mg PO BEDTIME lisinopril 20 mg See Protocol PO DAILY 30 days metoprolol succinate ER 100 mg PO BID pantoprazole 40 mg PO DAILY@0630 HPI Comments Details: This is an 85-year-old female patient coming in for a hospital discharge follow- up. Patient with a history of hypertension, hyperlipidemia, who was recently diagnosed with new onset of AFib. Patient was experiencing shortness of breath with palpitations for about a month and was referred to the hospital by primary care as patient was found to be in AFib with a RVR. Patient's rate was controlled with IV metoprolol. Patient's echo showed a decreased EF of 44% deemed to be likely due to tachycardia mediated. Patient was previously on Plavix for question of a blood clot in her brain after getting COVID. Plavix was stopped and was put on Eliquis therapy. Today, patient reports ongoing shortness of breath with exertion and feeling fatigued but denies any exertional chest pain, dizziness, orthopnea, PND, leg edema, presyncope, or syncope. Patient is reporting compliance with all her medications however patient is asking why all of her medications for switched around. [facility] Medical History Overweight with body mass index (BMI) of 28 to 28.9 in adult DNR (do not resuscitate) (~01/31/25) DNI (do not intubate) (~01/31/25) Coronary artery disease GERD (gastroesophageal reflux disease) Chronic pain Hyperlipidemia LDL goal <100 Establishing care with new doctor, encounter for Essential hypertension Dual energy x-ray photon absorptiometry (DEXA) scan declined (~01/31/25) History of mammogram (~10/11/24) HTN (hypertension) Surgical History History of colonoscopy Family History Father No problems noted. Mother Heart problem Cancer Social History Household Members: None Housing: House Are you a primary certified social workers in health care to a significant other at home: No Do you presently have visiting nurse or other home services: No Alcohol intake: current Alcohol intake frequency: 0-2 drinks per day Alcohol type: beer Comment: refused falls interventions/socks. Patient Tobacco Use Status: Former Tobacco user service: No Current occupational status: retired Cognitive needs: No Hearing needs: Yes (b/l hearing aids) Vision needs: Yes (rx glasses) Review of Systems Const Denies chills, Denies fatigue, Denies fever(s), Denies frequent falls, Denies weakness, Denies weight gain and Denies weight loss ENT Denies dizziness Card Denies chest pain, Denies leg edema, Denies lightheadedness, Denies palpitations, Denies dyspnea, Denies dyspnea on exertion, Denies orthopnea and Denies other (loss of consciousness) Resp Denies cough, Denies dyspnea and Denies dyspnea on exertion GI Denies hematochezia and Denies change in stool character Musc Denies abnormal gait, Denies muscle weakness, Denies numbness, Denies radiating pain into limb and Denies tingling Neuro Denies abnormal gait, Denies dizziness, Denies frequent falls, Denies numbness, Denies tingling and Denies weakness Endo Denies fatigue and Denies palpitations Physical Exam Vital Signs: Last Vital Signs Pulse 86 04/30/25 14:39 BP 118/78 04/30/25 14:39 BMI result Body Mass Index 27.4 Const General: cooperative, healthy appearing, comfortable and no acute distress Orientation/consciousness: patient oriented x3 HEENT Head: Yes normal to inspection Neck Neck: Yes normal visual inspection, Yes trachea midline and Yes supple Chest Chest palpation & inspection: normal inspection of the chest Resp Effort & Inspection: normal respiratory effort Auscultation: clear to auscultation bilaterally, no crackles, no rales, no rhonchi and no wheezes Cardio Jugular venous distension: no JVD Palpation: normal PMI Rate: regular rate Rhythm: abnormal rhythm irregularly irregular Heart sounds: S1 normal heart sound present, S2 normal heart sound present, no click, no gallops, no murmurs and no rubs Peripheral pulses: Peripheral pulses 2+ throughout GI Inspection: Yes normal to inspection Palpation (GI): Soft to palpation Auscultation: normal bowel sounds Skin General skin exam: no rashes or lesions noted Neuro General: patient oriented x3 Extrem General: Yes normal to inspection, No no pedal edema and No calf tenderness Psych Appearance: grossly normal Mental Status: mental status grossly normal Speech and movement: Normal speech and movement present Office Procedures EKG Details: EKG today showed atrial fibrillation, rate 95 beats per minute, nonspecific [place]- [place] [id number], Complete Assessment & Plan Assessment & Plan (1) Afib: Code(s): I48.91 - Unspecified atrial fibrillation Category: Medical Plan: New diagnosis of persistent AFib from recent hospitalization. Continue Eliquis for full anticoagulation therapy. Denies any signs of bleeding or falls. Explained in detail about risk for stroke with AFib and the need for staying on Eliquis. Patient verbalizes understanding. Continue metoprolol for rate control. Patient has so far been on anticoagulation for a little over 2 weeks. Given her ongoing symptoms, we will plan for cardioversion in about 3 weeks. The procedure along with its indications, risks, and potential benefits was thoroughly discussed with the patient. Patient expresses understanding and agrees to proceed with the planned cardioversion with Dr. Duque. Antiarrhythmics we will be decided post cardioversion. (2) SOB (shortness of breath) on exertion: Code(s): R06.02 - Shortness of breath Category: Medical Plan: As above. (3) Cardiomyopathy: Code(s): I42.9 - Cardiomyopathy, unspecified Category: Medical Plan: 04/08/2025-echo study showed mildly decreased LV systolic function with an ejection fraction at 44% with mild global hypokinesis. This is deemed to be possibly due to the AFib and elevated rate. We will decide about ischemic workup following cardioversion. (4) Essential hypertension: Code(s): I10 - Essential (primary) hypertension Category: Medical Plan: Blood pressure today is well-controlled. Continue current regimen. Advised monitoring blood pressures with a goal less than 130/80. Is to maintain a log of it. (5) Hyperlipidemia: Code(s): E78.5 - Hyperlipidemia, unspecified Category: Medical Qualifiers: Hyperlipidemia type: unspecified Qualified Code(s): E78.5 - Hyperlipidemia, unspecified Plan: Continue statin therapy, with an LDL goal closer to 70. (6) Hospital discharge follow-up: Code(s): Z09 - Encounter for follow-up examination after completed treatment for conditions other than malignant neoplasm Plan: As above. Advised heart healthy diet, avoiding caffeinated beverages, med compliance, and management of vascular risk factors. Reviewed case with Dr. Duque. Follow-up after cardioversion. In the interim, patient will call the office with any concerns or change in symptoms. Advised to seek ER care in case of exertional chest pain not resolved with rest. This note was generated using voice recognition software. While every effort has been made to ensure accuracy and proper stamping die maker, there may be occasional errors that could affect the content or meaning of the described symptoms. Orders: Orders AMB EKG-In Office Today I48.91 - Unspecified atrial fibrillation, R06.02 - Shortness of breath Cardioversion 05/23/25 I48.91 - Unspecified atrial fibrillation Medications: Changed From lisinopril 20 mg See Protocol PO DAILY 30 days 30 tabs 0RF To lisinopril 20 mg See Protocol PO DAILY 60 tabs 3RF Refilled apixaban 5 mg PO BID 60 tabs 5RF metoprolol succinate ER 100 mg PO BID 60 tabs 3RF AFIB Coding Level of Care Code Est Pt Level 4 (75971) Complex EM visit Add On G2211 Diagnoses Afib I48.91 SOB (shortness of breath) on exertion R06.02 Cardiomyopathy I42.9 Essential hypertension I10 Hyperlipidemia, unspecified hyperlipidemia type E78.5 Hyperlipidemia type: unspecified Hospital discharge follow-up Z09 CPT Codes EKG - CPT: 07723-[id number], Complete ([id number]) Time Spent (min) 32 Comment Time spent in reviewing the chart, test results, assessment, counseling and documentation.
--- OUTSIDE RECORDS SUMMARY | 2025-04-30 15:31 | XMS_ITS | Clinical Summary ---
Author Organization [facility] Address [address] [address] Phone Care Team Providers Care Home Energy Rater Name Role Phone Ancelmo Chaudhary MD Primary Care Provider [phone] Allergies Active Allergy Reactions Criticality Noted Date [...] [place] [address] MEDICARE PART A & B MEDICARE PART A & B MEDICARE PART A & B MEDICARE PART A & B MEDICARE PART A & B MEDICARE PART A & B MEDICARE PART A & B MEDICARE PART A & B Care Teams Home Energy Rater Relationship Specialty Start Date End Date Ancelmo Chaudhary MD [address] [place] [address] PCP - General Internal Medicine 04/15/19 Additional Source Comments The information contained in this document represents components of the legal health record. It is not the complete legal health record.[facility]
--- OUTSIDE RECORDS SUMMARY | 2025-04-30 15:31 | XMS_ITS | Patient Health Record ---
Author Organization [facility] Address [address] [place] [id number] Care Team Providers Care Information Assurance Engineer Name Role Phone Jet (RETIRED) Ancelmo MCCOY Primary Care Provider Unavailable Marquis Ayala Jr Unavailable [phone] Allergies Allergen (clinical drug ingredient) Drug/Non Drug [...] Problem Status W/U Status Risk Notes Problem 651937300 Colon cancer screening (Z12.11) Active confirmed Problem 408957949 Gastroesophageal reflux disease without esophagitis (K21.9) Active confirmed Problem [id number] Intestinal gas excretion (R14.3) Active confirmed Problem [id number] Colon cancer screening declined (Z53.20) Active confirmed Vital Signs Temperature 95.9 degrees Fahrenheit 11/27/2024 Blood pressure diastolic 01 mm Hg 11/27/2024 Height 63 in 11/27/2024 Blood pressure systolic 001 mm Hg 11/27/2024 Weight 154.4 lbs 11/27/2024 BMI 27.35 kg/m2 11/27/2024 Encounters Encounter Location Date Provider Diagnosis [facility] [address] [facility] [address] [place] [phone] 11/27/2024 Marquis Ayala Jr Gastroesophageal reflux disease without esophagitis K21.9 and Colon cancer screening Z12.11 [facility] [address] [place] [id number] 07/19/2024 Marquis Ayala Jr Assessments Encounter Date Diagnosis (ICD Code) Assessment Notes Treatment Notes Treatment Clinical Notes Section Notes 11/27/2024 Colon cancer screening (ICD-10 - Z12.11) 11/27/2024 Gastroesophageal reflux disease without esophagitis (ICD-10 - K21.9) Plan Of Treatment Future Test Test Name Order Date UPPER GI ENDOSCOPY 04/28/2016 COLONOSCOPY 04/28/2016 Next Appt Details Provider Name:Marquis bower Jr, 11/26/2025 10:10:00 AM, [address] [facility], [address], [place], [address], Insurance Providers Payer Name Payer Address Payer Phone Subscriber Number Group Number Insured Name Patient Relationship to Insured Coverage Start Date Coverage End Date MEDICARE OF [place] [address] [place] [address] [id number] JULIA GUARDADOKAY Self - patient is the insured MED[employer] ATT[employer] CLAIMS [address] [place] [address] [phone] [id number] DOROTHYLIVAN TE, KAY Self - patient is the insured Medical (General) History Medical History History ICD Code GERD, EGD 08/2016. No H. pylori or [place] tt's esophagus. Colonoscopy 08/2016, tubular adenoma x1. Followup optional based on age Hypertension Hyperlipidemia Surgical History Surgery Date(Month/Year) trigger finger release ORIF left ankle compound fracture Back surgery Partial hysterectomy, fibroids
--- OUTSIDE RECORDS SUMMARY | 2025-04-30 15:31 | XMS_ITS | Clinical Summary ---
Author Organization [facility] Address [address] [place] [address] Care Team Providers Care Prison Guard Name Role Phone Pcp, No Primary Care [...] MEDICARE PART A & B Care Teams Prison Guard Relationship Specialty Start Date End Date Pcp, No PCP - General General Medicine 11/19/24
--- OUTSIDE RECORDS SUMMARY | 2025-04-30 15:31 | XMS_ITS | Patient Health Record ---
Author Organization [facility] Address [address] [facility] [place] [address] Care Team Providers Care Electrician Marine Name Role Phone Ancelmo Chaudhary MD Primary Care Provider UnavailRasheed Grant Unavailable [phone] Allergies Allergen (clinical drug ingredient) Drug/Non Drug Allergy documented on EMR Reaction Allergy Type Onset Date Status Information temporarily unavailable Bactrim rash Drug Allergy Active Information temporarily unavailable Sulfa Antibiotics rash Drug Allergy Active Reason For Referral No [...] Status Risk Notes Problem Acquired hallux valgus (57051081) Hallux valgus (acquired), left foot (M20.12) Active confirmed Problem Localized, primary osteoarthritis of the ankle and/or foot (898923894) Primary osteoarthriti s, left ankle and foot (M19.072) Active confirmed Problem Acquired hallux valgus (31901068) Hallux valgus (acquired), right foot (M20.11) Active confirmed Problem Arthritis of left ankle (9920841683691149) Arthritis of left ankle (M19.072) Active confirmed Plan Of Treatment Pending Test Test Name Order Date X ray : Ankle, left 3V 09/07/2023 X ray : Foot, left 3V 09/07/2023 X ray : Foot, left 3V 07/10/2018 X ray : Foot, left 3V 02/26/2019 X ray : Foot, right 3V 09/07/2023 [id number], [id number]/INJECT, JOINT/BURSA 0 02/26/2019 [id number], [id number]/INJECT, JOINT/BURSA 0 12/28/2015- Ganglion Cyst Injection/Aspiratio n 05/30/2011 Insurance Providers Payer Name Payer Address Payer Phone Subscriber Number Group Number Insured Name Patient Relationship to Insured Coverage Start Date Coverage End Date Medicare National Govt Sv[employer] [address] [facility] [address] [id number] Rosmery Thompson Self - patient is the insured [employer] [facility] [address] [place] [address] [phone] [id number] Rosmery Thopmson Self - patient is the insured Medical [...]
== END 2025-04-30 15:36 | disposition home or self-care (01) ==
LOC: HO.HCS 14:32
PROVIDERS: PCP Internal Medicine
DX: I48.91 Unspecified atrial fibrillation (principal); R06.02 Shortness of breath; I42.9 Cardiomyopathy, unspecified; I10 Essential (primary) hypertension; E78.5 Hyperlipidemia, unspecified; Z09 Encounter for follow-up examination after completed treatment for conditions other than malignant neoplasm
CPT/HCPCS: 93010; 99214; G2211

== ENCOUNTER → 2025-04-30 14:32 | Outpatient (BNVA) | payer MEDICARE, SELFPAY | PROVIDERS: PCP Internal Medicine | DX: Z09 Encounter for follow-up examination after completed treatment for conditions other than malignant neoplasm (principal); I48.19 Other persistent atrial fibrillation; R06.02 Shortness of breath; I42.9 Cardiomyopathy, unspecified; I10 Essential (primary) hypertension; E78.5 Hyperlipidemia, unspecified | CPT/HCPCS: 93005; 99212 ==

== ENCOUNTER 2025-05-07 10:49 | Outpatient (AMB) | payer MEDICARE, SELFPAY ==
--- OUTSIDE RECORDS SUMMARY | 2024-11-06 06:00 | XMS_ITS ---
Author Organization [facility] Address [address] [place] [address] Care Team Providers Care Stunt Woman Name Role Phone Jet (RETIRED) Ancelmo MCCOY Primary Care Provider Unavailable Marquis Ayala Jr REASON FOR VISIT gerd Encounters Encounter Location Date Provider Diagnosis [facility] [address] [place] [address] 11/06/2024 Marquis Ayala Jr Plan Of Treatment Next Appt Details Provider Name:Marquis bower Jr, 11/26/2025 10:10:00 AM, 10 [facility], [address], [place], [address], Progress Notes * KAY CARTWRIGHT EDOB:[birth year] (85 yo F)Acc No.[id number]:11/06/2024 Progress Notes Patient: Jaci DUVALDieter KAY Dieter Provider: Jaci Ayala MD :1940 A ge:84 Y S ex:Female Date:11/06/2024 Address:[address] [place] [address] [place] Pcp:Ancelmo Chaudhary (RETIRED) MD Subjective: * Chief [...] 0 11/06/2024 Generated for Jackie steen/Alanna/Gabriel on: 0 05/07/2025 12:43 PM EDT
--- NOTE | 2025-05-07 10:54 | MHC.PC.OV ---
Vital Signs 05/07/25 11:01 Height 5 ft 2 in Weight 153 lb 4 oz BMI 28.0 BP 142/78 H Blood Pressure Location Rt femoral Position Sitting Respiration 16 Pulse 74 Pulse Source Pulse Oximeter Temp 97.3 F Temp Source Temporal Artery Scan Pulse Oximetry (%) 98 Oxygen Delivery Method Room Air Intake Visit Reasons: Atrial fibrillation with RVR, new onset 04/07 Intake Note: Visit Reason: TCM Intake Note: Patient is here for hospital discharge follow up. Patient was discharged from Assembler Fitter Required: No Dehydrogenation Supervisor: Not Required per policy Accompanied by: Self / Same As Patient Allergies sulfamethoxazole (From Bactrim) Allergy (Mild, Verified 05/07/25 11:16) RASH trimethoprim (From Bactrim) Allergy (Mild, Verified 05/07/25 11:16) RASH Sulfa (Sulfonamide Antibiotics) Allergy (Unknown, Verified 05/07/25 11:16) hives Medication List - Last Reconciled 05/07/25 by Aiyana Gage PA-C amlodipine 10 mg PO DAILY apixaban 5 mg PO BID atorvastatin 10 mg PO BEDTIME lisinopril 20 mg See Protocol PO DAILY metoprolol succinate ER 100 mg PO BID pantoprazole 40 mg PO DAILY@0630 Tobacco use date assessed: 01/31/25 Fall risk assessment: No Falls in past year Last assessed Fall Risk: 01/31/25 Dental Screening Dental Screen Date: 01/31/25 Did you have a dental visit in the last 12 months?: Yes Did you have a dental problem in the last 6 months where you did not have access to dental care?: No Was dental information given to patient?: Patient has dentist HPI HPI Comments History of Present Illness Details Patient presents to the office for a TCM visit. Date of admission: 04/07/2025 Date of discharge: 04/09/2025 This is a Follow-up from admission at [facility] HPI/hospital course/discharge summary: The patient is an 85-year-old female presenting with a follow-up after hospital discharge for atrial fibrillation with rapid ventricular response and cardiomyopathy. The patient was admitted to the hospital on April 07, 2025, and discharged on April 09, 2025, due to atrial fibrillation with rapid ventricular response and cardiomyopathy. She has a history of hyperlipidemia, coronary artery disease, gastroesophageal reflux disease, and hypertension. During her hospital stay, she experienced shortness of breath and palpitations, which led to her admission. The patient reports ongoing dyspnea on exertion, stating that walking from her car to the clinic leaves her breathless. She was diagnosed with atrial fibrillation and is scheduled for a cardioversion on the . 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 The patient has a history of smoking, having quit approximately 30 years ago. She smoked for many years prior to quitting. A chest X-ray was performed, which did not reveal any significant findings, but a lung cancer screening has been recommended due to her smoking history. Discharged to/Current Location: Home Lives with: Self Diagnosis: Atrial fibrillation with rapid RVR; cardiomyopathy Procedures performed: Patient had labs, EKG. Labs were unremarkable. No significant electrolyte abnormalities. An INR was 1.0. Her BNP was 310. Her EKG revealed AFib with RVR with a ventricular rate of 121. She received IV metoprolol 5 mg in the ER and aspirin. She had an echocardiogram which revealed a LVEF of 44%. Her rate was controlled with beta blockers on b.i.d. dosing. She was discharged home. New medications: Metoprolol extended release 100 mg b.i.d.; Eliquis 5 mg b.i.d. Discontinued medications: Plavix 75 mg, Celebrex 200 mg, lisinopril 40 mg Change medications/dosing: Lisinopril 40 mg was changed to 20 mg of lisinopril daily Pending labs: none at this time Pending diagnostic test: none at this time Any Follow-up Labs required? none at this time Any Follow-up Diagnostic test required? none at this time How are you feeling? SOB on exertion still not improved Are you in any pain or discomfort? No pain Do you have any questions about your condition or discharge instructions? No Were you able to get your medications filled? Yes Do you have any questions about your medications? No Any referrals required? No Were you able to schedule your follow-up appointment? yes seen Cardiology If home health was ordered, have they contact you? Not interested at this time Any outpatient services, if so, are you scheduled? Not interested at this time Are there any additional resources like transportation you might need during her recovery? Not interested at this time - VNA? Not interested at this time - PARTITION ASSEMBLER? Not interested at this time - Meals on wheels? Not interested at this time Educational need/resources: Not interested at this time What support system do you have? Children 3 who whens he calls they will come over to help if need to Social History: - Lives independently without assistance at home. - Former smoker, quit approximately 30 years ago. - Engages in low-impact activities such as yoga and golf. [facility], [facility] Medical History (Updated 05/07/25 @ 12:50 by Aiyana Gage PA-C) Hospital discharge follow-up Screening for lung cancer YOUNG (dyspnea on exertion) SOB (shortness of breath) History of nicotine use Overweight with body mass index (BMI) of 28 to 28.9 in adult DNR (do not resuscitate) (~01/31/25) DNI (do not intubate) (~01/31/25) Coronary artery disease GERD (gastroesophageal reflux disease) Chronic pain Hyperlipidemia LDL goal <100 Establishing care with new doctor, encounter for Essential hypertension Dual energy x-ray photon absorptiometry (DEXA) scan declined (~01/31/25) History of mammogram (~10/11/24) HTN (hypertension) Surgical History History of colonoscopy Family History Father No problems noted. Mother Heart problem Cancer Social History Household Members: None Housing: House Are you a primary healthcare liaison to a significant other at home: No Do you presently have visiting nurse or other home services: No Alcohol intake: current Alcohol intake frequency: 0-2 drinks per day Alcohol type: beer Comment: refused falls interventions/socks. Patient Tobacco Use Status: Former Tobacco user service: No Current occupational status: retired Cognitive needs: No Hearing needs: Yes (b/l hearing aids) Vision needs: Yes (rx glasses) Questionnaire PHQ-9 Over the last 2 weeks, how often have you been bothered by any of the following problems? 1. Little interest or pleasure in doing things: not at all 2. Feeling down, depressed, or hopeless: not at all 3. Trouble falling or staying asleep, or sleeping too much: not at all 4. Feeling tired or having little energy: not at all 5. Poor appetite or overeating: not at all 6. Feeling bad about yourself - or that you are a failure or have let yourself or your family down: not at all 7. Trouble concentrating on things, such as reading the newspaper or watching television: not at all 8. Moving or speaking so slowly that other people could have noticed. Or the opposite - being so fidgety or restless that you have been moving around a lot more than usual: not at all 9. Thoughts that you would be better off or of hurting yourself in some way: not at all Total score: 0 Depression Screening Interpretation: Negative Depression Screening Done: Yes 39072 - PHQ-9 Billing: Yes Source: Developed by Drs. Alejandro Luna, Jackelin Colvni, Bryon Birmingham and colleagues, with an educational dorothy from [employer]. Thrive Questionnaire Date Thrive assessed: 04/08/25 I am a: Patient What is your living situation today?: I have a steady place to live Within the past 12 months, did the food you bought not last and you didn't have the money to get more?: Never true Within the past 12 months, did you worry whether your food would run out before you got money to buy more?: Never true Do you have trouble paying for medicines?: No Do you have trouble getting transportation to medical appointments?: No Do you have trouble paying your heating and electricity bill?: No Do you have trouble taking care of your child, family member or friend?: No Do you have trouble with day-to-day activities such as bathing, preparing meals, shopping, managing finances, etc.?: No Are you currently unemployed and looking for a job?: No Are you interested in more education?: No Please select the resources that you would like help with: None Currently or been in a relationship where the following occur: No concerns reported THRIVE Score: 0 AUDIT C Alcohol Use Questionnaire (AUDIT-C) 1. How often do you have a drink containing alcohol?: Never 2. How many drinks containing alcohol do you have on a typical day when you are drinking?: 1 or 2 3. How often do you have six or more drinks on one occasion?: Never Total Score: 0 Score Reviewed/Action Taken: No AILYN-7 AMB Questionnaire AILYN-7 Date AILYN - 7 assessed: 01/31/25 Feeling nervous, anxious, or on edge: 0 = Not at all Not being able to stop or control worryin = Not at all Worrying too much about different things: 0 = Not at all Trouble relaxin = Not at all Being so restless that it is hard to sit still: 0 = Not at all Becoming easily annoyed or irritable: 0 = Not at all Feeling afraid as if something awful might happen: 0 = Not at all Total AILYN-7 score (0-4 normal; 5-9 mild; 10-14 moderate; 15-21 severe): 0 Source: Developed by Drs. Alejandro Luna, Jackelin Colvin, Bryon Birmingham and colleagues, with an educational dorothy from [employer]. AILYN-7 Assessment Billing AILYN-7 Assessment Tool: AILYN-7 Assessment 07756 Review of Systems Const Details: - Cardiovascular: Reports dyspnea on exertion. Denies chest pain. - Respiratory: Denies wheezing or use of inhalers. All systems reviewed & are unremarkable except as noted in HPI and below Physical exam (Primary Care) Vital Signs: Last Vital Signs Temp 97.3 F 05/07/25 11:01 Pulse 74 05/07/25 11:01 Resp 16 05/07/25 11:01 BP 142/78 H 05/07/25 11:01 Pulse Ox 98 05/07/25 11:01 Oxygen Delivery Method Room Air 05/07/25 11:01 Vitals signs have been reviewed. Care Plan Goal for BP management: <140/90 patient to continue current blood pressure regimen BMI result Body Mass Index 28.0 BMI Assessment/Plan discussion: High BMI High, discussed plan: lifestyle, weight reduction, dietary, physical activity, alcohol moderation and other Tobacco/Smoking Status: Tobacco use Status Tobacco use date assessed 01/31/25 05/07/25 10:58 Patient Tobacco Use Status Former Tobacco user 05/07/25 10:58 PHQ-9: PHQ-9 Score PHQ-9: Total score 0 05/07/25 10:58 Depression Screening Interpretation: Negative Thrive Assessment: Date of Thrive Assessment Date Thrive assessed 04/08/25 05/07/25 10:58 Currently or been in a relationship where the following occur: No concerns reported Const Other: Appearance: Alert. Oriented X3. No acute distress. Head: Normal external exam. Normocephalic. Atraumatic. Eyes: Pupils are equal, round, and reactive to light. Extraocular movements intact. Conjunctiva and sclera normal. Eyelids normal. Throat: Pharynx normal. Uvula midline. Moist mucous membranes. Neck: Normal inspection. Neck supple. Full range of motion. Cardiovascular: Normal heart rate and rhythm. Heart sound normal. No murmurs noted. Pulses normal throughout. Respiratory: No respiratory distress. Painless inspiration. Breath sounds normal. No wheezes/rales/rhonchi noted. Chest nontender. No accessory muscle usage noted or decreased air movement noted.Full range of motion noted. Skin: Skin warm and dry. Normal skin color. Normal skin turgor. No rashes/lesions/lacerations noted. Extremities: No lower extremity edema. Extremities exhibit normal range of motion. Neuro: Oriented X 3. No motor deficit. No sensory deficit. Reflexes normal. Results Reviewed Results Reviewed: - Echocardiogram: Left ventricular ejection fraction of 44%. - Chest X-ray: No significant findings. Coding Level of Care Code TCM High MDM <= 14 days Complex EM visit Add On G2211 Diagnoses Afib I48.91 Cardiomyopathy I42.9 Essential hypertension I10 Hyperlipidemia LDL goal <100 E78.5 Coronary artery disease I25.10 GERD (gastroesophageal reflux disease) K21.9 Screening for lung cancer Z12.2 Hospital discharge follow-up Z09 Additional Codes AILYN-7 Assessment Billing - AILYN-7 Assessment Tool: AILYN-7 Assessment 26323 ([id number]) PHQ-9 - 28165 - PHQ-9 Billing: Yes ([id number]) Assessment & Plan Assessment & Plan (1) Afib: Code(s): I48.91 - Unspecified atrial fibrillation Category: Medical Plan: The patient will continue on metoprolol extended release twice daily and Eliquis for stroke prophylaxis. A cardioversion is scheduled for the to address the atrial fibrillation. Follow-up with cardiology is advised to monitor the condition and adjust treatment as necessary. 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 Management includes continuation of beta blockers and monitoring of symptoms. (3) Essential hypertension: Code(s): I10 - Essential (primary) hypertension Category: Medical Plan: The patient will continue on amlodipine and lisinopril at adjusted doses to manage blood pressure. Blood pressure monitoring is recommended, with follow-up with primary care to ensure stability. (4) Hyperlipidemia LDL goal <100: Code(s): E78.5 - Hyperlipidemia, unspecified Category: Medical Plan: The patient will continue atorvastatin for lipid management. Follow-up with primary care is advised to monitor lipid levels and adjust treatment as needed. (5) Coronary artery disease: Code(s): I25.10 - Atherosclerotic heart disease of [place] coronary artery without angina pectoris Category: Medical Plan: The patient will continue statin therapy and has discontinued Plavix. Regular follow-up with primary care is recommended to monitor cardiac health. (6) GERD (gastroesophageal reflux disease): Code(s): K21.9 - Gastro-esophageal reflux disease without esophagitis Category: Medical Plan: The patient will continue pantoprazole for GERD management. Monitoring of symptoms and follow-up with primary care is advised. (7) Screening for lung cancer: Code(s): Z12.2 - Encounter for screening for malignant neoplasm of respiratory organs Category: Medical Plan: A lung cancer screening has been ordered due to the patient's history of smoking. The patient will be contacted for scheduling the screening, and results will guide further management. (8) Hospital discharge follow-up: Code(s): Z09 - Encounter for follow-up examination after completed treatment for conditions other than malignant neoplasm Category: Medical Plan Plan Patient was informed and verbally consented to the use of an ambient scribe for clinic note documentation during this visit. 1. Atrial Fibrillation With Rapid Ventricular Response The patient will continue on metoprolol extended release twice daily and Eliquis for stroke prophylaxis. A cardioversion is scheduled for the to address the atrial fibrillation. Follow-up with cardiology is advised to monitor the condition and adjust treatment as necessary. 2. 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 Management includes continuation of beta blockers and monitoring of symptoms. 3. Hypertension The patient will continue on amlodipine and lisinopril at adjusted doses to manage blood pressure. Blood pressure monitoring is recommended, with follow-up with primary care to ensure stability. 4. Hyperlipidemia The patient will continue atorvastatin for lipid management. Follow-up with primary care is advised to monitor lipid levels and adjust treatment as needed. 5. Coronary Artery Disease The patient will continue statin therapy and has discontinued Plavix. Regular follow-up with primary care is recommended to monitor cardiac health. 6. Gastroesophageal Reflux Disease (Gerd) The patient will continue pantoprazole for GERD management. Monitoring of symptoms and follow-up with primary care is advised. 7. Preventative Care: Lung Cancer Screening A lung cancer screening has been ordered due to the patient's history of smoking. The patient will be contacted for scheduling the screening, and results will guide further management. During the visit, we discussed the management of atrial fibrillation with rapid ventricular response, including the continuation of metoprolol and Eliquis, and the upcoming cardioversion scheduled for the . We also reviewed the patient's cardiomyopathy, hypertension, hyperlipidemia, coronary artery disease, and GERD management plans, emphasizing the importance of medication adherence and regular follow-ups. A lung cancer screening was recommended due to the patient's smoking history, and arrangements for scheduling were discussed. Orders: Referrals Lung Cancer Screening Referral R06.02 - Shortness of breath, R06.09 - Other forms of dyspnea, Z87.891 - Personal history of nicotine dependence Patient Instructions: - Continue taking all prescribed medications as directed. - Attend the scheduled cardioversion on the . - Follow up with cardiology and primary care as advised. - Expect a call to schedule the lung cancer screening. - Engage in low-impact activities like yoga and golf, but avoid high-intensity exercises. - Monitor blood pressure regularly and report any significant changes.
[2025-05-07 11:01] VITALS: BP 142/78; PULSE 74; RESP 16; TEMP 36.3; O2SAT 98; BMI 28.0
--- OUTSIDE RECORDS SUMMARY | 2025-05-07 12:44 | XMS_ITS | Clinical Summary ---
Author Organization [facility] Address [address] [place] [address] Care Team Providers Care Child Day Care Provider Name Role Phone Pcp, No Primary Care [...] Health Maintenance Due Date Last Done Comments Advance Care Planning 1942 DTaP/Tdap/Td Vaccines (1 - Tdap) 1961 Pneumococcal Vaccines 50+ (1 of 1 - PCV) 1992 Zoster (Shingles) Vaccine (1 of 2) 1992 DXA Bone Density (Females,Ag es 65 and older) 2007 RSV Vaccine 60 years and old er and Patients (1 - 1-dose 75+ series) 2017 COVID-19 Vaccine ( - 2023-2 5 season) 2024 Influenza Vaccine 04/04/2025 Hepatitis B Vaccines Aged Out No long er eligible based on patient's age to complete this topic Insurance BLUE CROSS OUT OF STATE - PPO MEDICARE PART A & B Care Teams Child Day Care Provider Relationship Specialty Start Date End Date Pcp, No PCP - General General Medicine 11/19/24
--- OUTSIDE RECORDS SUMMARY | 2025-05-07 12:44 | XMS_ITS | Clinical Summary ---
Author Organization [facility] Address [address] [address] Phone Care Team Providers Care Fire Chief'S Aide Name Role Phone Ancelmo Chaudhary MD Primary Care Provider +1- [phone] Allergies Active Allergy Reactions Criticality Noted Date [...] Insurance [place] [address] MEDICARE PART A & B MEDICARE PART A & B MEDICARE PART A & B MEDICARE PART A & B MEDICARE PART A & B MEDICARE PART A & B MEDICARE PART A & B MEDICARE PART A & B Care Teams Fire Chief'S Aide Relationship Specialty Start Date End Date Ancelmo Chaudhary MD [address] [place] [address] PCP - General Internal Medicine 04/15/19 Additional Source Comments The information contained in this document represents components of the legal health record. It is not the complete legal health record.[facility]
== END 2025-05-07 11:33 | disposition home or self-care (01) ==
LOC: HO.HMCSH 10:49
PROVIDERS: PCP Internal Medicine; Visit Provider Physician Assistant Medical
DX: I48.91 Unspecified atrial fibrillation (principal); I42.9 Cardiomyopathy, unspecified; I10 Essential (primary) hypertension; E78.5 Hyperlipidemia, unspecified; I25.10 Atherosclerotic heart disease of native coronary artery without angina pectoris; K21.9 Gastro-esophageal reflux disease without esophagitis; Z12.2 Encounter for screening for malignant neoplasm of respiratory organs; Z09 Encounter for follow-up examination after completed treatment for conditions other than malignant neoplasm

== ENCOUNTER → 2025-05-07 10:49 | Outpatient (BNVA) | payer MEDICARE, SELFPAY | PROVIDERS: PCP Internal Medicine; Visit Provider Physician Assistant Medical | DX: I10 Essential (primary) hypertension (principal); I48.91 Unspecified atrial fibrillation; I42.9 Cardiomyopathy, unspecified; E78.5 Hyperlipidemia, unspecified; I25.10 Atherosclerotic heart disease of native coronary artery without angina pectoris; K21.9 Gastro-esophageal reflux disease without esophagitis; R06.02 Shortness of breath; R06.09 Other forms of dyspnea; Z09 Encounter for follow-up examination after completed treatment for conditions other than malignant neoplasm; Z87.891 Personal history of nicotine dependence | CPT/HCPCS: 96127; 99212 ==

== ENCOUNTER 2025-05-23 12:20 | Day surgery (SDC) | payer MEDICARE, SELFPAY ==
[2025-05-21 11:59] VITALS: BMI 27.2
--- NOTE | 2025-05-21 13:20 | P.CONAN_ITS ---
Documented by User: Jayla Gastelum NP 05/21/25 13:26 HPI - Anesthesia Eval Consult details Narrative: 85yo F [place] [facility] [place] with new onset afib. Eliquis started. DNR/DNI [facility] Active Problems Active Problems: All Active Problems Hospital discharge follow-up (Acute) Screening for lung cancer (Acute) YOUNG (dyspnea on exertion) (Acute) SOB (shortness of breath) (Acute) History of nicotine use (Acute) SOB (shortness of breath) on exertion (Acute) Afib (Acute) Cardiomyopathy (Acute) Atrial fibrillation with rapid ventricular response (Acute) Hyperlipidemia (Acute) Atrial fibrillation, new onset (Acute) Overweight with body mass index (BMI) of 28 to 28.9 in adult (Acute) DNR (do not resuscitate) (Acute ~01/31/25) DNI (do not intubate) (Acute ~01/31/25) Coronary artery disease (Acute) GERD (gastroesophageal reflux disease) (Acute) Chronic pain (Acute) Hyperlipidemia LDL goal <100 (Acute) Establishing care with new doctor, encounter for (Acute) Essential hypertension (Acute) Numbness and tingling in both hands (Acute) Trigger finger, right index finger (Acute) Trigger finger, right ring finger (Acute) Trigger finger, left middle finger (Acute) Painful arc syndrome of left shoulder (Acute) Osteoarthritis of left acromioclavicular joint (Acute) Past Medical History Medical History (Updated 05/07/25 @ 12:50 by Aiyana Gage PA-C) Hospital discharge follow-up Screening for lung cancer YOUNG (dyspnea on exertion) SOB (shortness of breath) History of nicotine use Overweight with body mass index (BMI) of 28 to 28.9 in adult DNR (do not resuscitate) (~01/31/25) DNI (do not intubate) (~01/31/25) Coronary artery disease GERD (gastroesophageal reflux disease) Chronic pain Hyperlipidemia LDL goal <100 Establishing care with new doctor, encounter for Essential hypertension Dual energy x-ray photon absorptiometry (DEXA) scan declined (~01/31/25) History of mammogram (~10/11/24) HTN (hypertension) Family History Family History Father No problems noted. Mother Heart problem Cancer Surgical History Surgical History History of colonoscopy Social History Social History Household Members: None Housing: House Are you a primary point of care specialist to a significant other at home: No Do you presently have visiting nurse or other home services: No Alcohol intake: current Alcohol intake frequency: holidays/special occasions only Alcohol type: beer Comment: refused falls interventions/socks. Patient Tobacco Use Status: Former Tobacco user Second Hand Smoke Exposure: No Use of substances other than those prescribed or required for medical reasons: No Have you been hit, kicked, punched, or otherwise hurt by someone within the past year? If so, by whom?: No Are you DNR?: No Advance Directives: No Advance Directives Information Provided: Yes Advance Directives on File: No Patient : No : No Poor oral hygiene: No service: No Current occupational status: retired Cognitive needs: No Hearing needs: Yes (b/l hearing aids) Vision needs: Yes (rx glasses) Meds Allergies Allergy/AdvReac Type Severity Reaction Status Date / Time sulfamethoxazole (From Allergy Mild RASH Verified 05/07/25 11:16 Bactrim) trimethoprim (From Bactrim) Allergy Mild RASH Verified 05/07/25 11:16 Sulfa (Sulfonamide Allergy Unknown hives Verified 05/07/25 11:16 Antibiotics) Home Medications ?Medication ?Instructions ?Recorded ?Confirmed ?Last Taken ?Type pantoprazole 40 mg tablet,delayed 40 mg PO DAILY@0630 01/24/23 05/23/25 05/23/25 History release atorvastatin 10 mg tablet 10 mg PO BEDTIME 04/07/2505/22/25 History Exam Height,Weight and Vital Signs: Height 5 ft 2 in Weight 67.585 kg Pertinent Lab Results Pertinent Lab Results: Laboratory Tests 04/09/25 09:02 WBC 5.3 Hgb 12.8 Hct 36.5 L Plt Count 188 Sodium 143 Potassium 4.6 D Chloride 109 H Carbon Dioxide 24 BUN 14 Creatinine 0.83 Narrative Narrative: EKG 05/2025 EKG Details: EKG today showed atrial fibrillation, rate 95 beats per minute, nonspecific T- wave abnormality, and corrected QT ECHO 04/2025 Conclusions: - The left ventricular systolic function is mildly decreased. The calculated ejection fraction is 44% by biplane method. - No obvious valvular pathology seen on this study. Assessment and Plan Assessment Anesthesia Assessment: Chart Reviewed Documented by User: Jessy Jesus MD 05/23/25 13:38 [facility] Past Medical History Medical History (Updated 05/07/25 @ 12:50 by Aiyana Gage PA-C) Hospital discharge follow-up Screening for lung cancer YOUNG (dyspnea on exertion) SOB (shortness of breath) History of nicotine use Overweight with body mass index (BMI) of 28 to 28.9 in adult DNR (do not resuscitate) (~01/31/25) DNI (do not intubate) (~01/31/25) Coronary artery disease GERD (gastroesophageal reflux disease) Chronic pain Hyperlipidemia LDL goal <100 Establishing care with new doctor, encounter for Essential hypertension Dual energy x-ray photon absorptiometry (DEXA) scan declined (~01/31/25) History of mammogram (~10/11/24) HTN (hypertension) Family History Family History Father No problems noted. Mother Heart problem Cancer Family history of problems with anesthesia: No Surgical History Surgical History History of colonoscopy History of Problems with Anesthesia: No Social History Social History Household Members: None Housing: House Are you a primary point of care specialist to a significant other at home: No Do you presently have visiting nurse or other home services: No Alcohol intake: current Alcohol intake frequency: holidays/special occasions only Alcohol type: beer Comment: refused falls interventions/socks. Patient Tobacco Use Status: Former Tobacco user Second Hand Smoke Exposure: No Use of substances other than those prescribed or required for medical reasons: No Have you been hit, kicked, punched, or otherwise hurt by someone within the past year? If so, by whom?: No Are you DNR?: No Advance Directives: No Advance Directives Information Provided: Yes Advance Directives on File: No Patient : No : No Poor oral hygiene: No service: No Current occupational status: retired Cognitive needs: No Hearing needs: Yes (b/l hearing aids) Vision needs: Yes (rx glasses) Meds Allergies Allergy/AdvReac Type Severity Reaction Status Date / Time sulfamethoxazole (From Allergy Mild RASH Verified 05/07/25 11:16 Bactrim) trimethoprim (From Bactrim) Allergy Mild RASH Verified 05/07/25 11:16 Sulfa (Sulfonamide Allergy Unknown hives Verified 05/07/25 11:16 Antibiotics) Home Medications ?Medication ?Instructions ?Recorded ?Confirmed ?Last Taken ?Type pantoprazole 40 mg tablet,delayed 40 mg PO DAILY@0630 01/24/23 05/23/25 05/23/25 History release atorvastatin 10 mg tablet 10 mg PO BEDTIME 04/07/2505/22/25 History Exam Airway Mallampati Class: II TM Dist: >3cm Neck ROM: Full Heart: irreg Lungs: cta Assessment and Plan Assessment Anesthesia Assessment: Anesthesia Plan Discussed Final Anesthetic Review Family History of Problems with Anesthesia: No History of Problems with Anesthesia: No NPO: Yes ASA Class: III Final Preanesthetic Review: No Changes in Pt Med Stat, Meds/Allgs Chart Reviewed and Consent Obtained/Reviewed Patient Risk: Intermediate Procedure Risk: Low Anesthetic Plan Anesthetic Plan: MAC: Disposition: Standard PACU
[2025-05-23 12:45] VITALS: BP 119/79; PULSE 99; RESP 16; TEMP 36.8; O2SAT 96
[2025-05-23] MEDS: Lactated Ringers 1,000 ML 50 ML IVCONT (12:52)
--- NOTE | 2025-05-23 13:48 | PC.NURSE ---
patient held metoprolol yesterday PM and today AM dose. Dr. Duque notified per LAITH neff per .
--- NOTE | 2025-05-23 13:53 | HO.CARDIVERS ---
Cardioversion Procedure Note Cardioversion Date of Procedure: 05/23/2025 Pre-Op Diagnosis: Atrial fibrillation Post-Op Diagnosis: Sinus rhythm Consent: Informed consent obtained. Procedure: After informed consent was obtained, patient was taken to the PACU. The patient was then positioned appropriately. The cardioversion pads were placed in anteroposterior position. Once under anesthesia, 120 joules of synchronized shock was administered. The rhythm converted from atrial fibrillation to sinus rhythm. Patient remained in sinus rhythm after the end of procedure. Complications: None. Impression: Successful cardioversion from atrial fibrillation to sinus rhythm. Recommendations: Start Amiodarone. Decrease beta-blockers. Continue anticoagulation.
--- NOTE | 2025-05-23 14:00 | MHC.SHP ---
Pre-Procedural Eval Section A - 24 Hr Update-Section A only Date of Service: 05/23/25 The patient is an INPATIENT: No The patient has been examined within 24 hours of the surgical procedure. The History & Physical has been completed within 30 days and I have reviewed it.: Yes Section B - Complete if H&P > 30 days Chief Complaint: Other persistent atrial fibrillation Allergies: Allergies Allergy/AdvReac Type Severity Reaction Status Date / Time sulfamethoxazole (From Allergy Mild RASH Verified 05/07/25 11:16 Bactrim) trimethoprim (From Bactrim) Allergy Mild RASH Verified 05/07/25 11:16 Sulfa (Sulfonamide Allergy Unknown hives Verified 05/07/25 11:16 Antibiotics) Plan I have reviewed the history and physical and performed a pertinent physical examination on my patient. No changes have occurred unless specified. Time Spent With Patient Time: Total time managing care of this patient today ____ minutes.
--- NOTE | 2025-05-23 14:04 | ECG_ITS ---
Test Reason : poetop Blood Pressure : */* mmHG Vent. Rate : 49 BPM Atrial Rate : 49 BPM P-R Int : 182 ms QRS Dur : 80 ms QT Int : 494 ms P-R-T Axes : 84 33 47 degrees QTcB Int : 446 ms Sinus bradycardia with marked sinus arrhythmia Otherwise normal ECG When compared with ECG of 07-Apr-2025 17:01, Sinus rhythm has replaced Atrial fibrillation Vent. rate has decreased by 72 bpm Nonspecific T wave abnormality, improved in Inferior leads T wave inversion no longer evident in Anterior leads Referred By: Angelo Mcclendon Electronically Signed By: ANGELO MCCLENDON
[2025-05-23 14:10] VITALS: BP 104/47; PULSE 51; RESP 14; TEMP 36.5; O2SAT 92
[2025-05-23 14:25] VITALS: BP 104/56; PULSE 51; RESP 20; TEMP 36.4; O2SAT 96
[2025-05-23 14:40] VITALS: BP 116/49; PULSE 47; RESP 20; TEMP 36.4; O2SAT 97
== END 2025-05-23 14:49 | disposition home or self-care (01) ==
PROVIDERS: PCP Internal Medicine; Visit Provider Internal Medicine
PROC: 5A2204Z Restoration of Cardiac Rhythm, Single (ICD-10-PCS; principal; 2025-05-23 14:00)
DX: I48.19 Other persistent atrial fibrillation (principal); R06.02 Shortness of breath; R53.83 Other fatigue; I10 Essential (primary) hypertension; I25.10 Atherosclerotic heart disease of native coronary artery without angina pectoris; I42.9 Cardiomyopathy, unspecified; E78.5 Hyperlipidemia, unspecified; K21.9 Gastro-esophageal reflux disease without esophagitis; E66.3 Overweight; Z68.27 Body mass index [BMI] 27.0-27.9, adult; Z66 Do not resuscitate; Z79.01 Long term (current) use of anticoagulants; Z79.899 Other long term (current) drug therapy; Z88.2 Allergy status to sulfonamides; Z87.891 Personal history of nicotine dependence
CPT/HCPCS: 92960; 93005; J2704

== ENCOUNTER → 2025-05-23 12:20 | Outpatient (BNV) | payer MEDICARE, SELFPAY | PROVIDERS: PCP Internal Medicine; Visit Provider Internal Medicine | DX: I48.91 Unspecified atrial fibrillation (principal) | CPT/HCPCS: 92960; 93010 ==

== ENCOUNTER 2025-06-10 16:05 | Outpatient (REF) | payer MEDICARE, SELFPAY ==
--- OUTSIDE RECORDS SUMMARY | 2024-11-06 06:00 | XMS_ITS ---
Author Organization [facility] Address [address] [place] [address] Care Team Providers Care Smasher Hand Name Role Phone Jet (RETIRED) Ancelmo MCCOY Primary Care Provider Unavailable Marquis Ayala Jr REASON FOR VISIT gerd Encounters Encounter Location Date Provider Diagnosis [facility] [address] [place] [address] 11/06/2024 Marquis Ayala Jr Plan Of Treatment Next Appt Details Provider Name:Marquis bower Jr, 11/26/2025 10:10:00 AM, 10 [facility], [address], [place], [address], Progress Notes * KAY CARTWRIGHT EDOB:[birth year] (85 yo F)Acc No.[id number]:11/06/2024 Progress Notes Patient: Jaci DUVALDieter KAY Dieter Provider: Jaci Ayala MD :1940 A ge:84 Y S ex:Female Date:11/06/2024 Address:[address] [place] [address] [place] Pcp:Ancelmo Chaudhary (RETIRED) MD Subjective: * Chief [...] 11/06/2024 Generated for Jackie steen/Alanna/Gabriel on: 1 06:49 PM EDT
--- NOTE | ~2025-06-10 | XR_ITS ---
EXAMINATION: XR CHEST CLINICAL INFORMATION: R06.02 - Shortness of breath COMPARISON: 04/07/2025 TECHNIQUE: 2 views of the chest were obtained. FINDINGS: There is blunting of the right costophrenic angle. There is vague density in the right lung base, decreased from the prior. There are coarse interstitial markings diffusely. Heart size is within normal limits. XR/XR chest 2V IMPRESSION: Suspected right pleural effusion. Right basilar pneumonia is not ruled out. Electronically signed by: Andrade Bell MD 06/10/2025 04:55 PM EDT
[2025-06-10 17:05] LABS: Hematocrit 36.9 % (37.0-47.0); Hemoglobin 12.5 g/dl (12.0-16.0); Mean Corpuscular HGB Conc 33.9 g/dl (31.0-35.0); Mean Corpuscular Hemoglobin 32.1 pg (27.0-33.0); Mean Corpuscular Volume 94.6 fL (80.0-98.0); NRBC Abs Auto 0.000 X10*3/uL (0.0-0.012); NRBC Pct Auto 0.0 /100WBC (0.0-0.2); Platelet Count 178 X10*3/uL (160-400); Red Blood Count 3.90 X10*6/uL (4.20-5.50); White Blood Count 8.9 X10*3/uL (4.8-10.8)
[2025-06-10 17:31] LABS: Alanine Aminotransferase 58 U/L (0-31); Albumin Level 4.5 g/dL (3.5-5.0); Alkaline Phosphatase 92 U/L (39-117); Anion Gap 14 (12-20); Aspartate Amino Transferase 42 U/L (5-31); Blood Urea Nitrogen 19 mg/dL (9-16); Calcium 9.2 mg/dL (8.4-10.2); Carbon Dioxide 24 mmol/L (22-29); Chloride 108 mmol/L (96-108); Estimated Glomerular Filt Rate 47; Magnesium 2.0 mg/dL (1.6-2.6); Potassium 3.5 mmol/L (3.3-5.1); Sodium 142 mmol/L (135-145); Total Protein 6.9 g/dL (6.5-8.0)
--- OUTSIDE RECORDS SUMMARY | 2025-06-10 18:49 | XMS_ITS | Patient Health Record ---
Author Organization [facility] Address [address] [place] [id number] Care Team Providers Care Rand Butter Name Role Phone Jet (RETIRED) Ancelmo MCCOY Primary Care Provider Unavailable Marquis Ayala Jr Unavailable Allergies Allergen (clinical drug ingredient) [...] Problem Status W/U Status Risk Notes Problem [id number] Colon cancer screening (Z12.11) Active confirmed Problem 635203816 Gastroesophageal reflux disease without esophagitis (K21.9) Active confirmed Problem 699961300 Intestinal gas excretion (R14.3) Active confirmed Problem [id number] Colon cancer screening declined (Z53.20) Active confirmed Vital Signs Temperature 95.9 degrees Fahrenheit 11/27/2024 Blood pressure diastolic 01 mm Hg 11/27/2024 Height 63 in 11/27/2024 Blood pressure systolic 001 mm Hg 11/27/2024 Weight 154.4 lbs 11/27/2024 BMI 27.35 kg/m2 11/27/2024 Encounters Encounter Location Date Provider Diagnosis [facility] [address] [facility] [address] [place] [phone] 11/27/2024 Marquis Ayala Jr Gastroesophageal reflux disease without esophagitis K21.9 and Colon cancer screening Z12.11 [facility] [address] [place] [phone] 07/19/2024 Marquis Ayala Jr Assessments Encounter Date Diagnosis (ICD Code) Assessment Notes Treatment Notes Treatment Clinical Notes Section Notes 11/27/2024 Colon cancer screening (ICD-10 - Z12.11) 11/27/2024 Gastroesophageal reflux disease without esophagitis (ICD-10 - K21.9) Plan Of Treatment Future Test Test Name Order Date UPPER GI ENDOSCOPY 04/28/2016 COLONOSCOPY 04/28/2016 Next Appt Details Provider Name:Marquis bower Jr, 11/26/2025 10:10:00 AM, [address] [facility], [address], [place], [address], Insurance Providers Payer Name Payer Address Payer Phone Subscriber Number Group Number Insured Name Patient Relationship to Insured Coverage Start Date Coverage End Date MEDICARE OF [place] [address] [facility] [place] [address] [id number] JULIA GUARDADOKAY Self - patient is the insured MED[employer] ATT[employer] CLAIMS [address] [place] [address] [phone] [id number] DOROTHYLIVAN TE, KAY Self - patient is the insured Medical (General) History Medical History History ICD Code GERD, EGD 08/2016. No H. pylori or [place] tt's esophagus. Colonoscopy 08/2016, tubular adenoma x1. Followup optional based on age Hypertension Hyperlipidemia Surgical History Surgery Date(Month/Year) trigger finger release ORIF left ankle compound fracture Back surgery Partial hysterectomy, fibroids
--- OUTSIDE RECORDS SUMMARY | 2025-06-10 18:49 | XMS_ITS | Patient Health Record ---
[facility] Address [address] [facility] [place] [address] Care Team Providers Care Wildlife Veterinarian Name Role Phone Ancelmo Chaudhary MD Primary Care Provider Unavailab Rasheed Rabago Unavailable [phone] Allergies Allergen (clinical drug ingredient) Drug/Non Drug [...] Status Risk Notes Problem Acquired hallux valgus (13888417) Hallux valgus (acquired), left foot (M20.12) Active confirmed Problem Localized, primary osteoarthritis of the ankle and/or foot (639455834) Primary osteoarthriti s, left ankle and foot (M19.072) Active confirmed Problem Acquired hallux valgus (12209807) Hallux valgus (acquired), right foot (M20.11) Active confirmed Problem Arthritis of left ankle (7989533559774211) Arthritis of left ankle (M19.072) Active confirmed Plan Of Treatment Pending Test Test Name Order Date X ray : Ankle, left 3V 09/07/2023 X ray : Foot, left 3V 09/07/2023 X ray : Foot, left 3V 07/10/2018 X ray : Foot, left 3V 02/26/2019 X ray : Foot, right 3V 09/07/2023, [id number]/[id number], JOINT/BURSA 0 02/26/2019, [id number]/INJECT, JOINT/BURSA 0 12/28/2015- Ganglion Cyst Injection/Aspiratio n 05/30/2011 Insurance Providers Payer Name Payer Address Payer Phone Subscriber Number Group Number Insured Name Patient Relationship to Insured Coverage Start Date Coverage End Date Medicare National [employer] [address] [facility] [place] [place] [address] [id number] Rosmery Thompson Self - patient is the insured [facility] [address] [place] [address] [phone] [id number] Rosmery Thompson Self - patient is the [...]
--- OUTSIDE RECORDS SUMMARY | 2025-06-10 18:49 | XMS_ITS | Clinical Summary ---
Author Organization [facility] Address [address] [place] [address] Care Team Providers Care Mri Ct Tech Name Role Phone Pcp, No Primary Care [...] - 1-dose 75+ series) 2017 Influenza Vaccine 04/04/2025 COVID-19 Vaccine ( - 2023-2 5 season) 2025 Hepatitis B Vaccines Aged Out No long er eligible based on patient's age to complete this topic Insurance BLUE CROSS OUT OF STATE - PPO MEDICARE PART A & B Care Teams Mri Ct Tech Relationship Specialty Start Date End Date Pcp, No PCP - General General Medicine 11/19/24
--- OUTSIDE RECORDS SUMMARY | 2025-06-10 18:49 | XMS_ITS | Clinical Summary ---
Author Organization [facility] Address [address] [address] Phone Care Team Providers Care Director Geophysical Laboratory Name Role Phone Ancelmo Chaudhary MD Primary Care Provider +1- [phone] Allergies Active Allergy Reactions Criticality Noted Date [...] Insurance [place] [address] MEDICARE PART A & B MEDICARE PART A & B MEDICARE PART A & B MEDICARE PART A & B MEDICARE PART A & B MEDICARE PART A & B MEDICARE PART A & B MEDICARE PART A & B Care Teams Director Geophysical Laboratory Relationship Specialty Start Date End Date Ancelmo Chaudhary MD [address] [place] [address] PCP - General Internal Medicine 04/15/19 Additional Source Comments The information contained in this document represents components of the legal health record. It is not the complete legal health record.[facility]
== END 2025-06-10 16:06 | disposition home or self-care (01) ==
LOC: HO.LAB 16:05
PROVIDERS: PCP Physician Assistant Medical; Visit Provider Physician Assistant Medical
DX: Z00.00 Encounter for general adult medical examination without abnormal findings (principal); R06.02 Shortness of breath
CPT/HCPCS: 36415; 71046; 80053; 83735; 83880; 85027

== ENCOUNTER → 2025-06-10 16:09 | Outpatient (BNV) | payer MEDICARE, SELFPAY | PROVIDERS: PCP Physician Assistant Medical; Visit Provider Radiology Diagnostic Radiology | DX: R06.02 Shortness of breath (principal) | CPT/HCPCS: 71046 ==

== ENCOUNTER 2025-06-11 10:53 | Outpatient (AMB) | payer MEDICARE, SELFPAY ==
[2025-06-11 10:48] VITALS: BP 140/60; PULSE 46; RESP 16; TEMP 36.4; O2SAT 97; BMI 28.2
--- NOTE | 2025-06-11 10:48 | A.OFFPC_ITS ---
Vital Signs 06/11/25 10:48 Height 5 ft 2 in Weight 154 lb 6 oz BMI 28.2 BP 140/60 H Blood Pressure Location Rt brachial Position Sitting Respiration 16 Pulse 46 L Pulse Source Pulse Oximeter Temp 97.5 F Temp Source Temporal Artery Scan Pulse Oximetry (%) 97 Oxygen Delivery Method Room Air Intake Visit Reasons: Fluid behind ears and swelling in her legs Machine Room Operator Required: No Accompanied by: Self / Same As Patient Allergies sulfamethoxazole (From Bactrim) Allergy (Mild, Verified 06/11/25 16:47) RASH trimethoprim (From Bactrim) Allergy (Mild, Verified 06/11/25 16:47) RASH Sulfa (Sulfonamide Antibiotics) Allergy (Unknown, Verified 06/11/25 16:47) hives Medication List - Last Reconciled 06/11/25 by Aiyana Gage PA-C amiodarone 200 mg PO DAILY amiodarone Sig is: 400mg BID for 2 weeks. 200mg QD thereafter. amlodipine 10 mg PO DAILY apixaban 5 mg PO BID atorvastatin 10 mg PO BEDTIME fexofenadine-pseudoephedrine 60-120 mg ER (Michelle-D 12 Hour) 1 tab PO Q12H PRN furosemide (Lasix) 40 mg PO DAILY furosemide (Lasix) 20 mg PO BEDTIME lisinopril 20 mg See Protocol PO DAILY pantoprazole 40 mg PO DAILY@0630 Tobacco use date assessed: 06/11/25 Dental Screening Dental Screen Date: 06/11/25 Did you have a dental visit in the last 12 months?: Yes Did you have a dental problem in the last 6 months where you did not have access to dental care?: No Was dental information given to patient?: Patient has dentist HPI Fluid behind ears and swelling in her legs HPI Details The patient is an 85-year-old female presenting with leg swelling and back discomfort. The patient reports experiencing peripheral edema, which has shown some improvement but remains present. She reports some shortness of breath, dyspnea on exertion, fatigue and upper back pain when she lays down. She denies any chest pain or orthopnea. She has a history of the cardioversion with Dr. Duque on 05/23/2025. Reports that she has not followed up with Cardiology although she has appointment with cardiology in July although she attempted to call them over the past week and she was unsuccessful booking an appointment therefore she came here instead for an appointment. Patient reports she is currently on furosemide 40 mg. I explained to her to take an extra 20 mg at bedtime last night although her blood pressure was low therefore she did not take the extra Lasix. The patient has been experiencing symptoms consistent with congestive heart failure, including fluid retention and peripheral edema. Her proBNP levels are elevated, indicating significant fluid retention. She has gained approximately 5 pounds over the past month, further supporting the diagnosis. The patient also reports back discomfort, which is noted during the visit. She was informed of fluid behind her left eardrum after visiting urgent care, where she initially went for hearing aid evaluation and was advised to address earwax concerns. The fluid in the ear is suspected to contribute to her dizziness. She was prescribed prednisone for 3 days which she has taken with no improvement. The patient has a history of acid reflux, which is exacerbated by flu medication, leading to a sour taste in her mouth. She is currently on pantoprazole for management. Social History - Exercise: Unable to perform yoga due t o symptoms. [facility] Medical History (Updated 06/11/25 @ 16:56 by Aiyana Gage PA-C) CHF (congestive heart failure) Fluid level behind tympanic membrane Leg swelling Hospital discharge follow-up Screening for lung cancer YOUNG (dyspnea on exertion) SOB (shortness of breath) History of nicotine use Overweight with body mass index (BMI) of 28 to 28.9 in adult DNR (do not resuscitate) (~01/31/25) DNI (do not intubate) (~01/31/25) Coronary artery disease GERD (gastroesophageal reflux disease) Chronic pain Hyperlipidemia LDL goal <100 Establishing care with new doctor, encounter for Essential hypertension Dual energy x-ray photon absorptiometry (DEXA) scan declined (~01/31/25) History of mammogram (~10/11/24) HTN (hypertension) Surgical History History of colonoscopy Family History Father No problems noted. Mother Heart problem Cancer Social History Household Members: None Housing: Condominium Are you a primary career development manager to a significant other at home: No Do you presently have visiting nurse or other home services: No Alcohol intake: current Alcohol intake frequency: holidays/special occasions only Alcohol type: beer Comment: refused falls interventions/socks. Patient Tobacco Use Status: Former Tobacco user Second Hand Smoke Exposure: No service: No Current occupational status: retired Cognitive needs: No Hearing needs: Yes (b/l hearing aids) Vision needs: Yes (rx glasses) Questionnaire PHQ-9 Over the last 2 weeks, how often have you been bothered by any of the following problems? 1. Little interest or pleasure in doing things: not at all 2. Feeling down, depressed, or hopeless: not at all 3. Trouble falling or staying asleep, or sleeping too much: not at all 4. Feeling tired or having little energy: not at all 5. Poor appetite or overeating: not at all 6. Feeling bad about yourself - or that you are a failure or have let yourself or your family down: not at all 7. Trouble concentrating on things, such as reading the newspaper or watching television: not at all 8. Moving or speaking so slowly that other people could have noticed. Or the opposite - being so fidgety or restless that you have been moving around a lot more than usual: not at all 9. Thoughts that you would be better off or of hurting yourself in some way: not at all Total score: 0 Depression Screening Interpretation: Negative Depression Screening Done: Yes 19079 - PHQ-9 Billing: Yes Source: Developed by Drs. Alejandro Luna, Jackelin Colvin, Bryon Birmingham and colleagues, with an educational dorothy from [employer]. Thrive Questionnaire Date Thrive assessed: 06/11/25 I am a: Patient What is your living situation today?: I have a steady place to live Within the past 12 months, did the food you bought not last and you didn't have the money to get more?: Never true Within the past 12 months, did you worry whether your food would run out before you got money to buy more?: Never true Do you have trouble paying for medicines?: No Do you have trouble getting transportation to medical appointments?: No Do you have trouble paying your heating and electricity bill?: No Do you have trouble taking care of your child, family member or friend?: No Do you have trouble with day-to-day activities such as bathing, preparing meals, shopping, managing finances, etc.?: No Are you currently unemployed and looking for a job?: No Are you interested in more education?: No Please select the resources that you would like help with: None Currently or been in a relationship where the following occur: No concerns reported THRIVE Score: 0 AUDIT C Alcohol Use Questionnaire (AUDIT-C) 1. How often do you have a drink containing alcohol?: Never 2. How many drinks containing alcohol do you have on a typical day when you are drinking?: 1 or 2 3. How often do you have six or more drinks on one occasion?: Never Total Score: 0 Score Reviewed/Action Taken: No AILYN-7 AMB Questionnaire AILYN-7 Date AILYN - 7 assessed: 06/11/25 Feeling nervous, anxious, or on edge: 0 = Not at all Not being able to stop or control worryin = Not at all Worrying too much about different things: 0 = Not at all Trouble relaxin = Not at all Being so restless that it is hard to sit still: 0 = Not at all Becoming easily annoyed or irritable: 0 = Not at all Feeling afraid as if something awful might happen: 0 = Not at all Total AILYN-7 score (0-4 normal; 5-9 mild; 10-14 moderate; 15-21 severe): 0 Source: Developed by Drs. Alejandro Luna, Jackelin Colvin, Bryon Birmingham and colleagues, with an educational dorothy from [employer]. AILYN-7 Assessment Billing AILYN-7 Assessment Tool: AILYN-7 Assessment 61131 Review of Systems Const Details: - Cardiovascular: Denies chest pain or dyspnea. - Respiratory: Reports dyspnea on exertion. - Neurological: Reports dizziness, suspected due to fluid in the ear. - Gastrointestinal: Reports acid reflux with sour taste in mouth. - Musculoskeletal: Reports back discomfort. All systems reviewed & are unremarkable except as noted in HPI and below Physical exam (Primary Care) Vital Signs: Last Vital Signs Temp 97.5 F 06/11/25 10:48 Pulse 46 L 06/11/25 10:48 Resp 16 06/11/25 10:48 BP 140/60 H 06/11/25 10:48 Pulse Ox 97 06/11/25 10:48 Oxygen Delivery Method Room Air 06/11/25 10:48 Care Plan Goal for BP management: <140/90 at Goal BMI result Body Mass Index 28.2 BMI Assessment/Plan discussion: High BMI High, discussed plan: lifestyle, weight reduction, dietary, physical activity, alcohol moderation and other Tobacco/Smoking Status: Tobacco use Status Tobacco use date assessed 06/11/25 06/11/25 11:05 Patient Tobacco Use Status Former Tobacco user 06/11/25 10:52 PHQ-9: PHQ-9 Score PHQ-9: Total score 0 06/11/25 11:05 Depression Screening Interpretation: Negative Thrive Assessment: Date of Thrive Assessment Date Thrive assessed 06/11/25 06/11/25 10:52 Currently or been in a relationship where the following occur: No concerns reported Const Other: Appearance: Alert. Oriented X3. No acute distress. Head: Normal external exam. Normocephalic. Atraumatic. Eyes: Pupils are equal, round, and reactive to light. Extraocular movements intact. Conjunctiva and sclera normal. Eyelids normal. Throat: Pharynx normal. Uvula midline. Moist mucous membranes. Neck: Normal inspection. Neck supple. Full range of motion. No JVD is noted. Cardiovascular: Normal heart rate and rhythm. Heart sound normal. No murmurs noted. Pulses normal throughout. Respiratory: No respiratory distress. Painless inspiration. Breath sounds normal. Slight rales noted. No wheezes/rhonchi noted. No accessory muscle usage noted or decreased air movement noted. Abdomen: Soft and nontender. No distention noted. No organomegaly noted. No visible injury noted. Back: Full range of motion noted. Upper back discomfort reported. Skin: Skin warm and dry. Normal skin color. Normal skin turgor. No rashes/lesions/lacerations noted. Extremities: Lower extremity edema noted. Extremities exhibit normal range of motion. Neuro: Oriented X 3. No motor deficit. No sensory deficit. Reflexes normal. Office Procedures EKG Details: EKG sinus bradycardia no acute ischemic change are noted reviewed by Dr. Duque by tiger text [id number], Complete Results Reviewed Results Reviewed: - Labs: Elevated proBNP indicating fluid retention. - Imaging: Suspected right pleural effusion. Right basilar pneumonia is not ruled out. Coding Level of Care Code Est Pt Level 4 (46679) Complex EM visit Add On G2211 Diagnoses Leg swelling M79.89 Fluid level behind tympanic membrane H65.90 CHF (congestive heart failure) I50.9 GERD (gastroesophageal reflux disease) K21.9 CPT Codes EKG - CPT: 17902-[id number], Complete ([id number]) Additional Codes AILYN-7 Assessment Billing - AILYN-7 Assessment Tool: AILYN-7 Assessment 06072 ([id number]) PHQ-9 - 08976 - PHQ-9 Billing: Yes ([id number]) Time Spent (min) 60 Assessment & Plan Assessment & Plan (1) Leg swelling: Code(s): M79.89 - Other specified soft tissue disorders Category: Medical Plan: The patient is experiencing peripheral edema, which has shown some improvement but remains present. The plan includes monitoring fluid intake and adjusting diuretic therapy as needed. (2) Fluid level behind tympanic membrane: Code(s): H65.90 - Unspecified nonsuppurative otitis media, unspecified ear Category: Medical Plan: The patient was diagnosed with fluid behind the left eardrum, contributing to dizziness. Management includes monitoring symptoms, prescribing the patient Michelle and considering further ENT evaluation if symptoms persist. (3) CHF (congestive heart failure): Code(s): I50.9 - Heart failure, unspecified Category: Medical Plan: The patient is suspected to have congestive heart failure, indicated by symptoms of fluid retention and elevated proBNP levels. The plan is to instruct patient to take Lasix 40 mg in the morning and 20 mg at bedtime. I discussed this case with Dr. Duque and we performed an EKG while the patient was in the office and he reported that we can discontinue the metoprolol completely and she just has some monitor her blood pressure. She will have repeat blood work next week and a chest x-ray and she will have appointment with Dr. Duque the final operations technician on Monday next week. Patient is instructed to go to the emergency department she develops any worsening symptoms. Patient understands agrees with this plan. (4) GERD (gastroesophageal reflux disease): Code(s): K21.9 - Gastro-esophageal reflux disease without esophagitis Category: Medical Plan: The patient reports acid reflux exacerbated by flu medication, managed with pantoprazole. The plan includes continuing current medication and monitoring symptoms. Plan Plan Patient was informed and verbally consented to the use of an ambient scribe for clinic note documentation during this visit. 1. Peripheral Edema The patient is experiencing peripheral edema, which has shown some improvement but remains present. The plan includes monitoring fluid intake and adjusting diuretic therapy as needed. 2. Fluid Behind The Eardrum The patient was diagnosed with fluid behind the left eardrum, contributing to dizziness. Management includes monitoring symptoms and considering further ENT evaluation if symptoms persist. 3. Congestive Heart Failure The patient is suspected to have congestive heart failure, indicated by symptoms of fluid retention and elevated proBNP levels. The plan is to instruct patient to take Lasix 40 mg in the morning and 20 mg at bedtime. I discussed this case with Dr. Duque and we performed an EKG while the patient was in the office and he reported that we can discontinue the metoprolol completely and she just has some monitor her blood pressure. She will have repeat blood work next week and a chest x-ray and she will have appointment with Dr. Duque the final operations technician on Monday next week. Patient is instructed to go to the emerge ncy department she develops any worsening symptoms. Patient understands agrees with this plan. 4. Acid Reflux The patient reports acid reflux exacerbated by flu medication, managed with p antoprazole. The plan includes continuing current medication and monitoring symptoms. I discussed with the patient the likely diagnosis of congestive heart failure, explaining the symptoms and the need for an echocardiogram to assess cardiac function. We also reviewed the management of her peripheral edema and the importance of monitoring fluid intake and adjusting diuretics. The patient was advised to continue her current medication for acid reflux and to monitor symptoms related to fluid behind the eardrum. Orders: Orders Basic Metabolic Panel Today Z00.00 - Encounter for general adult medical examination without abnormal findings NT Pro B Type Natriuretic Pept Today M79.89 - Other specified soft tissue disorders XR chest 2V Today M79.89 - Other specified soft tissue disorders, R06.02 - Shortness of breath, R06.09 - Other forms of dyspnea Medications: New furosemide (Lasix) patient will take 40 mg in AM and 20 mg at pm already has RX for the 40 mg 20 mg PO BEDTIME 30 tabs 0RF fexofenadine-pseudoephedrine 60-120 mg ER (Michelle-D 12 Hour) 1 tab PO Q12H PRN 30 tabs 3RF allergy symptoms Patient Instructions: - Monitor fluid intake and report any significant changes in swelling or weight. - Continue taking pantoprazole as prescribed for acid reflux. - Follow up with ENT if dizziness persists or worsens. - Schedule an echocardiogram as advised to assess heart function.
== END 2025-06-11 12:01 | disposition home or self-care (01) ==
LOC: HO.HMCSH 10:53
PROVIDERS: PCP Physician Assistant Medical; Visit Provider Physician Assistant Medical
DX: M79.89 Other specified soft tissue disorders (principal); H65.90 Unspecified nonsuppurative otitis media, unspecified ear; I50.9 Heart failure, unspecified; K21.9 Gastro-esophageal reflux disease without esophagitis

== ENCOUNTER → 2025-06-11 10:53 | Outpatient (BNVA) | payer MEDICARE, SELFPAY | PROVIDERS: PCP Physician Assistant Medical; Visit Provider Physician Assistant Medical | DX: R60.0 Localized edema (principal); K21.9 Gastro-esophageal reflux disease without esophagitis; M79.89 Other specified soft tissue disorders; H65.92 Unspecified nonsuppurative otitis media, left ear; I50.9 Heart failure, unspecified; R06.02 Shortness of breath | CPT/HCPCS: 93005; 96127; 99212 ==

== ENCOUNTER 2025-06-17 10:23 | Outpatient (REF) | payer MEDICARE, SELFPAY ==
--- OUTSIDE RECORDS SUMMARY | 2024-11-06 06:00 | XMS_ITS ---
Author Organization [facility] Address [address] [place] [address] Care Team Providers Care Feed Mill Lab Technician Name Role Phone Jet (RETIRED) Ancelmo MCCOY Primary Care Provider Unavailable Marquis Ayala Jr [phone] REASON FOR VISIT gerd Encounters Encounter Location Date Provider Diagnosis [facility] [address] [place] [address] 11/06/2024 Marquis Ayala Jr Plan Of Treatment Next Appt Details Provider Name:Marquis bower Jr, 11/26/2025 10:10:00 AM, [address] [facility], [address], [place], [address], Progress Notes * KAY CARTWRIHGT EDOB:[birth year]04 (85 yo F)Acc No.[id number]:11/06/2024 Progress Notes Patient: Jaci DUVALiDeter KAY Dieter Provider: Jaci Ayala MD :1940 A ge:84 Y S ex:Female Date:11/06/2024 Address:[address] [place] [address] [place] Pcp:Ancelmo Chaudhary (RETIRED) MD Subjective: * Chief [...] 11/06/2024 Generated for Jackie steen/Alanna/Gabriel on: 1 12:17 PM EDT
--- NOTE | ~2025-06-17 | XR_ITS ---
EXAMINATION: XR CHEST 2 VIEWS HISTORY: R06.02 - Shortness of breath COMPARISON: Comparison is made with the prior examination dated 06/10/2025. FINDINGS: PA and lateral views of the chest are submitted. The previously seen small right pleural effusion has nearly completely resolved. The lungs are clear. There is no pneumothorax or pulmonary vascular congestion. The heart is normal in size. The bones are intact. XR/XR chest 2V IMPRESSION: Near-complete resolution of the previously seen small right pleural effusion. Electronically signed by: Alejandro Chavez MD 06/17/2025 11:07 AM EDT
--- OUTSIDE RECORDS SUMMARY | 2025-06-17 12:17 | XMS_ITS | Clinical Summary ---
Author Organization [facility] Address [address] [address] Phone Care Team Providers Care Desktop Support Manager Name Role Phone Ancelmo Chaudhary MD Primary Care Provider [phone] Allergies Active Allergy Reactions Criticality Noted Date [...] Insurance [place] [address] MEDICARE PART A & B MEDICARE PART A & B MEDICARE PART A & B MEDICARE PART A & B MEDICARE PART A & B MEDICARE PART A & B MEDICARE PART A & B MEDICARE PART A & B Care Teams Desktop Support Manager Relationship Specialty Start Date End Date Ancelmo Chaudhary MD [address] [place] [address] PCP - General Internal Medicine 04/15/19 Additional Source Comments The information contained in this document represents components of the legal health record. It is not the complete legal health record.[facility]
--- OUTSIDE RECORDS SUMMARY | 2025-06-17 12:17 | XMS_ITS | Clinical Summary ---
Author Organization [facility] Address [address] [place] [address] Care Team Providers Care Gauge Operator Name Role Phone Pcp, No Primary Care [...] MEDICARE PART A & B Care Teams Gauge Operator Relationship Specialty Start Date End Date Pcp, No PCP - General General Medicine 11/19/24
--- OUTSIDE RECORDS SUMMARY | 2025-06-17 12:17 | XMS_ITS | Patient Health Record ---
[facility] Address [address] [facility] [place] [address] Care Team Providers Care Enrollment Management Vice President Name Role Phone Ancelmo Chaudhary MD Primary Care Provider Unavailab Rasheed Rabago Unavailable [phone] Allergies Allergen (clinical drug ingredient) Drug/Non Drug [...] Status Risk Notes Problem Acquired hallux valgus (19300047) Hallux valgus (acquired), left foot (M20.12) Active confirmed Problem Localized, primary osteoarthritis of the ankle and/or foot (637913440) Primary osteoarthriti s, left ankle and foot (M19.072) Active confirmed Problem Acquired hallux valgus (18415139) Hallux valgus (acquired), right foot (M20.11) Active confirmed Problem Arthritis of left ankle (7670799838842198) Arthritis of left ankle (M19.072) Active confirmed Plan Of Treatment Pending Test Test Name Order Date X ray : Ankle, left 3V 09/07/2023 X ray : Foot, left 3V 09/07/2023 X ray : Foot, left 3V 07/10/2018 X ray : Foot, left 3V 02/26/2019 X ray : Foot, right 3V 09/07/2023, [id number]/[id number], JOINT/BURSA 0 02/26/2019, [id number]/INJECT, JOINT/BURSA 0 12/28/2015- Ganglion Cyst Injection/Aspiratio n 05/30/2011 Insurance Providers Payer Name Payer Address Payer Phone Subscriber Number Group Number Insured Name Patient Relationship to Insured Coverage Start Date Coverage End Date Medicare [employer] [address] [facility] [address] [id number] Rosmery Thompson Self - patient is the insured 7 [facility] [address] [place] [address] [id number] Rosmery Thompson Self - patient is the [...]
--- OUTSIDE RECORDS SUMMARY | 2025-06-17 12:17 | XMS_ITS | Patient Health Record ---
Author Organization [facility] Address [address] [place] [address] Care Team Providers Care Material Reprocessing Associate Name Role Phone Jet (RETIRED) Ancelmo MCCOY Primary Care Provider Unavailable Marquis Ayala Jr Unavailable [phone] Allergies Allergen (clinical drug ingredient) Drug/Non Drug [...] tablet Orall y Once a day; Duration: 90 days Active Plavix 75 MG 1 [...] Problem Status W/U Status Risk Notes Problem Colon cancer screening (232523014) Colon cancer screening (Z12.11) Active confirmed Problem Gastroesophageal reflux disease without esophagitis (353229216) Gastroesophageal reflux disease without esophagitis (K21.9) Active confirmed Problem Intestinal gas excretion (98103016) Intestinal gas excretion (R14.3) Active confirmed Problem Colon cancer screening declined (05146459676502) Colon cancer screening declined (Z53.20) Active confirmed Vital Signs Temperature 95.9 degrees Fahrenheit 11/27/2024 Blood pressure diastolic 01 mm Hg 11/27/2024 Height 63 in 11/27/2024 Blood pressure systolic 001 mm Hg 11/27/2024 Weight 154.4 lbs 11/27/2024 BMI 27.35 kg/m2 11/27/2024 Encounters Encounter Location Date Provider Diagnosis [facility] [address] [place] [address] 11/27/2024 Marquis Ayala Jr Gastroesophageal reflux disease without esophagitis K21.9 and Colon cancer screening Z12.11 [facility] [address] [place] [address] 07/19/2024 Marquis Ayala Jr Assessments Encounter Date Diagnosis (ICD Code) Assessment Notes Treatment Notes Treatment Clinical Notes Section Notes 11/27/2024 Colon cancer screening (ICD-10 - Z12.11) 11/27/2024 Gastroesophageal reflux disease without esophagitis (ICD-10 - K21.9) Plan Of Treatment Future Test Test Name Order Date UPPER GI ENDOSCOPY 04/28/2016 COLONOSCOPY 04/28/2016 Next Appt Details Provider Name:Marquis bower Jr, 11/26/2025 10:10:00 AM, [address], [address], [place], [address], Insurance Providers Payer Name Payer Address Payer Phone Subscriber Number Group Number Insured Name Patient Relationship to Insured Coverage Start Date Coverage End Date MEDICARE OF [place] [address] [place] [place] [address] [id number] KAY VAZQUEZ Self - patient is the insured [employer] CLAIM[employer] [address] [place] [address] [id number] KAY VAZQUEZ Self - patient is the insured Medical (General) History Medical History History ICD Code GERD, EGD 08/2016. No H. pylori or [place] tt's esophagus. Colonoscopy 08/2016, tubular adenoma x1. Followup optional based on age Hypertension Hyperlipidemia Surgical History Surgery Date(Month/Year) trigger finger release ORIF left ankle compound fracture Back surgery Partial hysterectomy, fibroids
[2025-06-17 12:45] LABS: NT Pro B Type Natriuretic Pept 838.3 pg/mL (<300)
[2025-06-17 13:02] LABS: Anion Gap 14 (12-20); Blood Urea Nitrogen 22 mg/dL (9-16); Calcium 10.2 mg/dL (8.4-10.2); Carbon Dioxide 32 mmol/L (22-29); Chloride 101 mmol/L (96-108); Estimated Glomerular Filt Rate 41; Potassium 3.5 mmol/L (3.3-5.1); Sodium 143 mmol/L (135-145)
== END 2025-06-17 10:24 | disposition home or self-care (01) ==
LOC: HO.XRAY 10:23
PROVIDERS: PCP Physician Assistant Medical; Visit Provider Physician Assistant Medical
DX: Z00.00 Encounter for general adult medical examination without abnormal findings (principal); R06.02 Shortness of breath; R06.09 Other forms of dyspnea; M79.89 Other specified soft tissue disorders
CPT/HCPCS: 36415; 71046; 80048; 83880

== ENCOUNTER → 2025-06-17 10:34 | Outpatient (BNV) | payer MEDICARE, SELFPAY | PROVIDERS: PCP Physician Assistant Medical; Visit Provider Radiology Diagnostic Radiology | DX: R06.02 Shortness of breath (principal) | CPT/HCPCS: 71046 ==

== ENCOUNTER 2025-06-18 13:20 | Outpatient (AMB) | payer MEDICARE, SELFPAY ==
--- OUTSIDE RECORDS SUMMARY | 2024-11-06 06:00 | XMS_ITS ---
Author Organization [facility] Address [address] [place] [address] Care Team Providers Care State Director Name Role Phone Jet (RETIRED) Ancelmo MCCOY Primary Care Provider Unavailable Marquis Ayala Jr REASON FOR VISIT gerd Encounters Encounter Location Date Provider Diagnosis [facility] [address] [place] [address] 11/06/2024 Marquis Ayala Jr Plan Of Treatment Next Appt Details Provider Name:Marquis bower Jr, 11/26/2025 10:10:00 AM, [address] [facility], [address], [place], [address], Progress Notes * KAY CARTWRIGHT EDOB:[birth year] (85 yo F)Acc No.[id number]:11/06/2024 Progress Notes Patient: Jaci DUVALDieter KYA Dieter Provider: Jaci Ayala MD :1940 A ge:84 Y S ex:Female Date:11/06/2024 Address:[address] [place] [address] [place] Pcp:Ancelmo Chaudhary (RETIRED) MD Subjective: * Chief [...] 11/06/2024 Generated for Jackie steen/Alanna/Gabriel on: 1 04:59 PM EDT
--- NOTE | 2025-06-18 13:27 | MHC.OFFVIS ---
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 200mg QD thereafter. amlodipine 10 mg PO DAILY apixaban 5 mg PO BID atorvastatin 10 mg PO BEDTIME fexofenadine-pseudoephedrine 60-120 mg ER (Michelle-D 12 Hour) 1 tab PO Q12H PRN furosemide (Lasix) 40 mg PO DAILY furosemide (Lasix) 20 mg PO BEDTIME lisinopril 20 mg See Protocol PO DAILY pantoprazole 40 mg PO DAILY@0630 HPI Comments Details: Rosmery returns for follow-up regarding atrial fibrillation. Recently seen in the hospital for atrial fibrillation rapid ventricular response. She was put on beta-blockers and anticoagulation. Subsequently, we performed an outpatient cardioversion. She was then put on amiodarone. During recent reasons to PCP, she was bradycardic and it seems like she was going into heart failure and then beta-blockers were stopped completely. She remains on amiodarone however. Today, she states she is actually feeling better. Her breathing is better and leg swelling is also better. However, on the EKG, she is back in atrial flutter with slightly rapid rate at 108/Min. PENDING SALE TO [facility] Medical History CHF (congestive heart failure) Fluid level behind tympanic membrane Leg swelling Hospital discharge follow-up Screening for lung cancer YOUNG (dyspnea on exertion) SOB (shortness of breath) History of nicotine use Overweight with body mass index (BMI) of 28 to 28.9 in adult DNR (do not resuscitate) (~01/31/25) DNI (do not intubate) (~01/31/25) Coronary artery disease GERD (gastroesophageal reflux disease) Chronic pain Hyperlipidemia LDL goal <100 Establishing care with new doctor, encounter for Essential hypertension Dual energy x-ray photon absorptiometry (DEXA) scan declined (~01/31/25) History of mammogram (~10/11/24) HTN (hypertension) Surgical History History of colonoscopy Family History Father No problems noted. Mother Heart problem Cancer Social History Household Members: None Housing: Condominium Are you a primary health care coordinator to a significant other at home: No Do you presently have visiting nurse or other home services: No Alcohol intake: current Alcohol intake frequency: holidays/special occasions only Alcohol type: beer Comment: refused falls interventions/socks. Patient Tobacco Use Status: Former Tobacco user Second Hand Smoke Exposure: No service: No Current occupational status: retired Cognitive needs: No Hearing needs: Yes (b/l hearing aids) Vision needs: Yes (rx glasses) Review of Systems Const Denies chills, Denies fatigue, Denies fever(s), Denies frequent falls, Denies weakness, Denies weight gain and Denies weight loss ENT Denies dizziness Card Denies chest pain, Denies leg edema, Denies lightheadedness, Denies palpitations, Denies dyspnea and Denies dyspnea on exertion Resp Denies cough, Denies dyspnea and Denies dyspnea on exertion GI Denies hematochezia Musc Denies abnormal gait, Denies muscle weakness, Denies numbness, Denies radiating pain into limb and Denies tingling Neuro Denies abnormal gait, Denies dizziness, Denies frequent falls, Denies numbness, Denies tingling and Denies weakness Endo Denies fatigue and Denies palpitations Physical Exam Vital Signs: Last Vital Signs Pulse 107 H 06/18/25 13:29 BP 110/60 06/18/25 13:29 BMI result Body Mass Index 26.5 Const General: comfortable and no acute distress Orientation/consciousness: patient oriented x3 HEENT Other: Unremarkable Head: Yes normal to inspection Neck Neck: Yes normal visual inspection Chest Chest palpation & inspection: normal inspection of the chest Resp Auscultation: clear to auscultation bilaterally Cardio Palpation: normal PMI Heart sounds: S1 normal heart sound present, S2 normal heart sound present, no gallops, no murmurs and no rubs GI Palpation (GI): Soft to palpation Back/Spine/Pelvis Other: unremarkable Skin General skin exam: no rashes or lesions noted Neuro General: patient oriented x3 Extrem General: Yes normal to inspection Psych Mental Status: mental status grossly normal Office Procedures EKG Details: EKG shows atrial flutter at a rate of 108/Min. [id number], Complete Assessment & Plan Assessment & Plan (1) Atrial flutter with rapid ventricular response: Code(s): I48.92 - Unspecified atrial flutter Category: Medical Plan: In the EKG today, atrial flutter with slightly rapid rate. During recent hospitalization, she was in atrial fibrillation. We will re-attempt cardioversion. Continue anticoagulation without interruption. (2) Sinus bradycardia: Code(s): R00.1 - Bradycardia, unspecified Category: Medical Plan: In the recent EKG at PCP office, she was having sinus bradycardia at 42/Min. As she also had heart failure symptoms, off beta-blockers. (3) Acute heart failure with preserved ejection fraction: Code(s): I50.31 - Acute diastolic (congestive) heart failure Category: Medical Plan: She seems to be mostly euvolemic today. On diuretics. In the echocardiogram, LVEF was 44%. Could be all tachycardia induced cardiomyopathy. Plan Discussion Notes I discussed with the patient the management of atrial fibrillation, including the potential need for cardioversion if the rhythm does not normalize. We reviewed the importance of medication adherence, particularly with amiodarone and blood thinners, and the need to adjust diuretics based on hydration status. Patient was informed and verbally consented to the use of an ambient scribe for clinic note documentation during this visit. Patient Instructions: - Continue taking amiodarone and blood thinners as prescribed. - Adjust diuretic dosage based on hydration status; reduce if feeling dehydrated. - Monitor for symptoms such as dizziness. Coding Level of Care Code Est Pt Level 4 (10002) Complex EM visit Add On G2211 Diagnoses Atrial flutter with rapid ventricular response I48.92 Sinus bradycardia R00.1 Acute heart failure with preserved ejection fraction I50.31 CPT Codes EKG - CPT: 55253-[id number], Complete ([id number])
[2025-06-18 13:29] VITALS: BP 110/60; PULSE 107; BMI 26.5
--- OUTSIDE RECORDS SUMMARY | 2025-06-18 16:59 | XMS_ITS | Clinical Summary ---
Author Organization [facility] Address [address] [address] Phone Care Team Providers Care Personnel Assistant Name Role Phone Ancelmo Chaudhary MD Primary Care Provider [phone] Allergies Active Allergy Reactions Criticality Noted Date [...] [place] [address] MEDICARE PART A & B MEDICARE PART A & B MEDICARE PART A & B MEDICARE PART A & B MEDICARE PART A & B MEDICARE PART A & B MEDICARE PART A & B MEDICARE PART A & B Care Teams Personnel Assistant Relationship Specialty Start Date End Date Ancelmo Chaudhary MD [address] [place] [address] PCP - General Internal Medicine 04/15/19 Additional Source Comments The information contained in this document represents components of the legal health record. It is not the complete legal health record.[facility]
--- OUTSIDE RECORDS SUMMARY | 2025-06-18 16:59 | XMS_ITS | Clinical Summary ---
Author Organization [facility] Address [address] [place] [address] Care Team Providers Care Industrial Hire Sales Assistant Name Role Phone Pcp, No Primary Care [...] es 65 and older) 2007 RSV Vaccine 50 years and old er and Patients (1 - 1-dose 75+ series) 2017 Influenza Vaccine 04/04/2025 COVID-19 Vaccine ( - 2023-2 5 season) 2025 Hepatitis B Vaccines Aged Out No long er eligible based on patient's age to complete this topic Insurance BLUE CROSS OUT OF STATE - PPO MEDICARE PART A & B Care Teams Industrial Hire Sales Assistant Relationship Specialty Start Date End Date Pcp, No PCP - General General Medicine 11/19/24
--- OUTSIDE RECORDS SUMMARY | 2025-06-18 16:59 | XMS_ITS | Patient Health Record ---
Author [facility] Address [address] [facility] [place] [address] Care Team Providers Care Burglar Alarm Installer Name Role Phone Ancelmo Chaudhary MD Primary Care Provider Unavailab Rasheed Rabago Unavailable [phone] Allergies Allergen (clinical drug ingredient) Drug/Non Drug [...] Status Risk Notes Problem Acquired hallux valgus (76200870) Hallux valgus (acquired), left foot (M20.12) Active confirmed Problem Localized, primary osteoarthritis of the ankle and/or foot (796470168) Primary osteoarthriti s, left ankle and foot (M19.072) Active confirmed Problem Acquired hallux valgus (94727617) Hallux valgus (acquired), right foot (M20.11) Active confirmed Problem Arthritis of left ankle (7986666228902892) Arthritis of left ankle (M19.072) Active confirmed Plan Of Treatment Pending Test Test Name Order Date X ray : Ankle, left 3V 09/07/2023 X ray : Foot, left 3V 09/07/2023 X ray : Foot, left 3V 07/10/2018 X ray : Foot, left 3V 02/26/2019 X ray : Foot, right 3V 09/07/2023, [id number]/INJECT, JOINT/BURSA 0 02/26/2019, [id number]/INJECT, JOINT/BURSA 0 12/28/2015- Ganglion Cyst Injection/Aspiratio n 05/30/2011 Insurance Providers Payer Name Payer Address Payer Phone Subscriber Number Group Number Insured Name Patient Relationship to Insured Coverage Start Date Coverage End Date Medicare National Govt Sv[employer] [address] [place] [address] [id number] Rosmery Thompson Self - patient is the insured 7 [facility] [address] [place] [address] [id number] Rosmery Thompson Self - patient is the [...]
--- OUTSIDE RECORDS SUMMARY | 2025-06-18 17:00 | XMS_ITS | Patient Health Record ---
Author Organization [facility] Address [address] [place] [address] Care Team Providers Care Cream Tester Name Role Phone Jet (RETIRED) Ancelmo MCCOY Primary Care Provider Unavailable Marquis Ayala Jr Unavailable [phone] Allergies Allergen (clinical drug ingredient) Drug/Non Drug [...] Status Risk Notes Problem Colon cancer screening (696580288) Colon cancer screening (Z12.11) Active confirmed Problem Gastroesophageal reflux disease without esophagitis (743466914) Gastroesophageal reflux disease without esophagitis (K21.9) Active confirmed Problem Intestinal gas excretion (84352124) Intestinal gas excretion (R14.3) Active confirmed Problem Colon cancer screening declined (31992850898229) Colon cancer screening declined (Z53.20) Active confirmed Vital Signs Temperature 95.9 degrees Fahrenheit 11/27/2024 Blood pressure diastolic 01 mm Hg 11/27/2024 Height 63 in 11/27/2024 Blood pressure systolic 001 mm Hg 11/27/2024 Weight 154.4 lbs 11/27/2024 BMI 27.35 kg/m2 11/27/2024 Encounters Encounter Location Date Provider Diagnosis [facility] [address] [place] [address] 11/27/2024 Marquis Ayala Jr Gastroesophageal reflux disease without esophagitis K21.9 and Colon cancer screening Z12.11 [facility] [address] [place] [address] 07/19/2024 Marquis Ayala Jr Assessments Encounter Date Diagnosis (ICD Code) Assessment Notes Treatment Notes Treatment Clinical Notes Section Notes 11/27/2024 Colon cancer screening (ICD-10 - Z12.11) 11/27/2024 Gastroesophageal reflux disease without esophagitis (ICD-10 - K21.9) Plan Of Treatment Future Test Test Name Order Date UPPER GI ENDOSCOPY 04/28/2016 COLONOSCOPY 04/28/2016 Next Appt Details Provider Name:Marquis bower Jr, 11/26/2025 10:10:00 AM, [address], [address], [place], [address], Insurance Providers Payer Name Payer Address Payer Phone Subscriber Number Group Number Insured Name Patient Relationship to Insured Coverage Start Date Coverage End Date MEDICARE OF [place] [address] [facility] [place] [address] [phone] [id number] KAY VAZQUEZ Self - patient is the insured [employer] CLAIM[employer] [address] [place] [address] [id number] KAY VAZQUEZ Self - patient is the insured Medical (General) History Medical History History ICD Code GERD, EGD 08/2016. No H. pylori or Nelson tt's esophagus. Colonoscopy 08/2016, tubular adenoma x1. Followup optional based on age Hypertension Hyperlipidemia Surgical History Surgery Date(Month/Year) trigger finger release ORIF left ankle compound fracture Back surgery Partial hysterectomy, fibroids
== END 2025-06-18 13:56 | disposition home or self-care (01) ==
LOC: HO.HCS 13:20
PROVIDERS: PCP Physician Assistant Medical; Visit Provider Internal Medicine
DX: I48.92 Unspecified atrial flutter (principal); R00.1 Bradycardia, unspecified; I50.31 Acute diastolic (congestive) heart failure
CPT/HCPCS: 93010; 99214; G2211

== ENCOUNTER → 2025-06-18 13:20 | Outpatient (BNVA) | payer MEDICARE, SELFPAY | PROVIDERS: PCP Physician Assistant Medical; Visit Provider Internal Medicine | DX: I50.31 Acute diastolic (congestive) heart failure (principal); R00.1 Bradycardia, unspecified; I48.92 Unspecified atrial flutter | CPT/HCPCS: 93005; 99212 ==

== ENCOUNTER → 2025-07-04 10:48 | Day surgery (SDC) | payer MEDICARE, SELFPAY ==
--- NOTE | 2025-07-02 10:19 | HO.ANESPROP2 ---
HPI - Anesthesia Eval Consult details Narrative: 85yo F for Cardioversion s/p cardio[place] with TIVA 05[place]23[place] [facility] [place] with new onset afib. Eliquis started. CHF: BNP from 06/17/25 800s DNR/DNI [facility] Active Problems Active Problems: All Active Problems Acute heart failure with preserved ejection fraction (Acute) Sinus bradycardia (Acute) Atrial flutter with rapid ventricular response (Acute) CHF (congestive heart failure) (Acute) Fluid level behind tympanic membrane (Acute) Leg swelling (Acute) Hospital discharge follow-up (Acute) Screening for lung cancer (Acute) YOUNG (dyspnea on exertion) (Acute) SOB (shortness of breath) (Acute) History of nicotine use (Acute) SOB (shortness of breath) on exertion (Acute) Afib (Acute) Cardiomyopathy (Acute) Atrial fibrillation with rapid ventricular response (Acute) Hyperlipidemia (Acute) Atrial fibrillation, new onset (Acute) Overweight with body mass index (BMI) of 28 to 28.9 in adult (Acute) DNR (do not resuscitate) (Acute ~01/31/25) DNI (do not intubate) (Acute ~01/31/25) Coronary artery disease (Acute) GERD (gastroesophageal reflux disease) (Acute) Chronic pain (Acute) Hyperlipidemia LDL goal <100 (Acute) Establishing care with new doctor, encounter for (Acute) Essential hypertension (Acute) Numbness and tingling in both hands (Acute) Trigger finger, right index finger (Acute) Trigger finger, right ring finger (Acute) Trigger finger, left middle finger (Acute) Painful arc syndrome of left shoulder (Acute) Osteoarthritis of left acromioclavicular joint (Acute) Past Medical History Medical History CHF (congestive heart failure) Fluid level behind tympanic membrane Leg swelling Hospital discharge follow-up Screening for lung cancer YOUNG (dyspnea on exertion) SOB (shortness of breath) History of nicotine use Overweight with body mass index (BMI) of 28 to 28.9 in adult DNR (do not resuscitate) (~01/31/25) DNI (do not intubate) (~01/31/25) Coronary artery disease GERD (gastroesophageal reflux disease) Chronic pain Hyperlipidemia LDL goal <100 Establishing care with new doctor, encounter for Essential hypertension Dual energy x-ray photon absorptiometry (DEXA) scan declined (~01/31/25) History of mammogram (~10/11/24) HTN (hypertension) Family History Family History Father No problems noted. Mother Heart problem Cancer Family history of problems with anesthesia: No Surgical History Surgical History History of colonoscopy History of Problems with Anesthesia: No Social History Social History Household Members: None Housing: Condominium Are you a primary career counselor to a significant other at home: No Do you presently have visiting nurse or other home services: No Alcohol intake: current Alcohol intake frequency: holidays/special occasions only Alcohol type: beer Comment: refused falls interventions/socks. Patient Tobacco Use Status: Former Tobacco user Second Hand Smoke Exposure: No service: No Current occupational status: retired Cognitive needs: No Hearing needs: Yes (b/l hearing aids) Vision needs: Yes (rx glasses) Meds Allergies Allergy/AdvReac Type Severity Reaction Status Date / Time sulfamethoxazole (From Allergy Mild RASH Verified 06/11/25 16:47 Bactrim) trimethoprim (From Bactrim) Allergy Mild RASH Verified 06/11/25 16:47 Sulfa (Sulfonamide Allergy Unknown hives Verified 06/11/25 16:47 Antibiotics) Home Medications ?Medication ?Instructions ?Recorded ?Confirmed ?Last Taken ?Type pantoprazole 40 mg tablet,delayed 40 mg PO DAILY@0630 01/24/23 06/18/25 05/23/25 History release atorvastatin 10 mg tablet 10 mg PO BEDTIME 04/07/25 06/18/25 05/22/25 History Exam Pertinent Lab Results Pertinent Lab Results: Laboratory Tests 06/10/25 06/17/25 16:28 11:31 WBC 8.9 RBC 3.90 L Hgb 12.5 Hct 36.9 L Plt Count 178 Sodium 143 Potassium 3.5 BUN 22 H Creatinine 1.24 Narrative Narrative: ECHO 04/2025 Conclusions: - The left ventricular systolic function is mildly decreased. The calculated ejection fraction is 44% by biplane method. - No obvious valvular pathology seen on this study. In office EKG 06/18/25 atrial flutter with slightly rapid rate 108 Assessment and Plan Final Anesthetic Review Family History of Problems with Anesthesia: No History of Problems with Anesthesia: No
[2025-07-04 10:56] VITALS: BMI 26.0
--- NOTE | 2025-07-04 11:09 | ECG_ITS ---
Test Reason : cardioversion question of afib Blood Pressure : */* mmHG Vent. Rate : 57 BPM Atrial Rate : 57 BPM P-R Int : 176 ms QRS Dur : 86 ms QT Int : 488 ms P-R-T Axes : 47 14 19 degrees QTcB Int : 474 ms Sinus bradycardia Otherwise normal ECG When compared with ECG of 23-May-2025 14:15, No significant change was found Referred By: Saniya Padilla Electronically Signed By: ANGELO MCCLENDON
[2025-07-04 11:19] VITALS: BP 115/71; PULSE 60; RESP 16; TEMP 37.2; O2SAT 98
--- NOTE | 2025-07-04 11:20 | PC.NURSE ---
Patient noted to be NSR HR 60's on the monitor. Stat EKG order placed; cardiology staff present at the bedside to complete EKG. Dr. Lyn messaged to let him know patient's status.
--- NOTE | 2025-07-04 11:32 | PC.NURSE ---
Per Dr. Lyn patient can be discharged home. Patient taken off monitor, changed, and met her daughter downstairs.
== END ==
LOC: HO.SSS 10:49
PROVIDERS: PCP Physician Assistant Medical; Visit Provider Internal Medicine
DX: I48.91 Unspecified atrial fibrillation (principal); Z53.8 Procedure and treatment not carried out for other reasons; R00.1 Bradycardia, unspecified; Z66 Do not resuscitate
CPT/HCPCS: 93005

== ENCOUNTER → 2025-07-04 11:09 | Outpatient (BNV) | payer MEDICARE, SELFPAY | PROVIDERS: PCP Physician Assistant Medical; Visit Provider Internal Medicine | DX: R00.1 Bradycardia, unspecified (principal) | CPT/HCPCS: 93010 ==

== ENCOUNTER 2025-07-08 14:16 | Outpatient (AMB) | payer MEDICARE, SELFPAY ==
--- OUTSIDE RECORDS SUMMARY | 2024-11-06 05:00 | XMS_ITS ---
Author Organization [facility] Address [address] [place] [address] Care Team Providers Care Manager Rehab Name Role Phone Jet (RETIRED) Ancelmo MCCOY Primary Care Provider Unavailable Marquis Ayala Jr [phone] REASON FOR VISIT gerd Encounters Encounter Location Date Provider Diagnosis [facility] [address] [place] [address] 11/06/2024 Marquis Ayala Jr Plan Of Treatment Next Appt Details Provider Name:Marquis bower Jr, 11/26/2025 10:10:00 AM, 10 [facility], [address], [place], [address], Progress Notes * KAY CARTWRIGHT EDOB:[birth year] (85 yo F)Acc No.[id number]:11/06/2024 Progress Notes Patient: Jaci DUVALDieter KAY Dieter Provider: Jaci Ayala MD :1940 A ge:84 Y S ex:Female Date:11/06/2024 Address:[address] [place] [address] [place] Pcp:Ancelmo Chaudhary (RETIRED) MD Subjective: * Chief Complaints: * 1 . Gerd. * Medical History: Objective: * Vitals: Assessment: Plan: * Treatment: * * The named appointment provid er may or may not be the originator of this progress note, and it is not deemed complete until electronically signed by the appointment provider. Sign off status: Pending * Provider: Jaci Ayala MD Date: 0 11/06/2024 Generated for Jackie steen/Alanna/Gabriel on: 09/07/2024 05:17 PM EST
--- NOTE | 2025-07-08 14:21 | MHC.OFFVIS ---
Vital Signs 07/08/25 14:22 Height 5 ft 2 in Weight 149 lb 0.52 oz BMI 27.3 BP 132/58 L Blood Pressure Location Lt brachial Position Sitting Pulse 69 Pulse Source Monitor Intake Visit Reasons: [address] walsh pt Historic Sites Registrar Required: No Accompanied by: Self / Same As Patient Allergies sulfamethoxazole (From Bactrim) Allergy (Mild, Verified 07/08/25 14:25) RASH trimethoprim (From Bactrim) Allergy (Mild, Verified 07/08/25 14:25) RASH Sulfa (Sulfonamide Antibiotics) Allergy (Unknown, Verified 07/08/25 14:25) hives Medication List - Last Reconciled 07/08/25 by Blaze Webster NP amiodarone 200 mg PO DAILY amlodipine 10 mg PO DAILY apixaban 5 mg PO BID atorvastatin 10 mg PO BEDTIME furosemide (Lasix) 40 mg PO DAILY furosemide (Lasix) 20 mg PO BEDTIME lisinopril 20 mg See Protocol PO DAILY pantoprazole 40 mg PO DAILY@0630 HPI Comments Details: This is an 85-year-old female patient coming in for a follow-up. Patient with a history of hypertension, hyperlipidemia, AFib and a flutter and cardiomyopathy with the EF at 44% who had undergone cardioversion once back in May where patient converted into sinus rhythm but later at an office visit, patient was noted to be back in atrial flutter and therefore was plan for another cardioversion. Patient states that when she went in for the cardioversion, they noted she was back in sinus rhythm. Today, patient reports that she has been having increased tremors since being on the amiodarone and dizziness after taking 40 mg of Lasix in the morning. Patient is otherwise denying any cardiac symptoms of exertional chest pain, shortness of breath, palpitations, orthopnea, PND, leg edema, presyncope or syncope. Patient is otherwise reporting compliance with all her medications. [facility] Medical History CHF (congestive heart failure) Fluid level behind tympanic membrane Leg swelling Hospital discharge follow-up Screening for lung cancer YOUNG (dyspnea on exertion) SOB (shortness of breath) History of nicotine use Overweight with body mass index (BMI) of 28 to 28.9 in adult DNR (do not resuscitate) (~01/31/25) DNI (do not intubate) (~01/31/25) Coronary artery disease GERD (gastroesophageal reflux disease) Chronic pain Hyperlipidemia LDL goal <100 Establishing care with new doctor, encounter for Essential hypertension Dual energy x-ray photon absorptiometry (DEXA) scan declined (~01/31/25) History of mammogram (~10/11/24) HTN (hypertension) Surgical History History of colonoscopy Family History Father No problems noted. Mother Heart problem Cancer Social History Household Members: None Housing: Condominium Are you a primary home care coordinator to a significant other at home: No Do you presently have visiting nurse or other home services: No Alcohol intake: current Alcohol intake frequency: holidays/special occasions only Alcohol type: beer Comment: refused falls interventions/socks. Patient Tobacco Use Status: Former Tobacco user Second Hand Smoke Exposure: No service: No Current occupational status: retired Cognitive needs: No Hearing needs: Yes (b/l hearing aids) Vision needs: Yes (rx glasses) Review of Systems Const Denies daytime sleepiness, Denies difficulty sleeping, Denies snoring, Denies stops breathing during sleep and Denies weakness Card Denies chest pain, Denies rapid heart rate, Denies irregular heart rhythm, Denies claudication, Denies leg edema, Denies lightheadedness, Denies palpitations, Denies dyspnea, Denies dyspnea on exertion, Denies orthopnea, Denies paroxysmal nocturnal dyspnea and Denies slow heart rate Resp Denies cough, Denies dyspnea, Denies dyspnea on exertion and Denies snoring GI Reports no additional complaints, Denies hematochezia, Denies change in stool character and Denies dyspepsia Musc Denies abnormal gait, Denies muscle weakness and Denies numbness Neuro Denies abnormal gait, Denies numbness and Denies weakness Endo Denies palpitations Physical Exam Vital Signs: Last Vital Signs Pulse 69 07/08/25 14:22 BP 132/58 L 07/08/25 14:22 BMI result Body Mass Index 27.3 Const General: cooperative, healthy appearing, comfortable and no acute distress Orientation/consciousness: patient oriented x3 HEENT Head: Yes normal to inspection Neck Neck: Yes normal visual inspection, Yes trachea midline and Yes supple Chest Chest palpation & inspection: normal inspection of the chest Resp Effort & Inspection: normal respiratory effort Auscultation: clear to auscultation bilaterally, no crackles, no rales, no rhonchi and no wheezes Cardio Jugular venous distension: no JVD Palpation: normal PMI Rate: regular rate Rhythm: regular rhythm Heart sounds: S1 normal heart sound present, S2 normal heart sound present, no click, no gallops, no murmurs and no rubs Peripheral pulses: Peripheral pulses 2+ throughout GI Inspection: Yes normal to inspection Palpation (GI): Soft to palpation Auscultation: normal bowel sounds Skin General skin exam: no rashes or lesions noted Neuro General: patient oriented x3 Extrem General: Yes normal to inspection, No no pedal edema and No calf tenderness Psych Appearance: grossly normal Mental Status: mental status grossly normal Speech and movement: Normal speech and movement present Office Procedures EKG Details: EKG today shows NSR, rate 69 bpm, nonspecific ST, [place], [place] [id number], Complete Assessment & Plan Assessment & Plan (1) Afib: Code(s): I48.91 - Unspecified atrial fibrillation Category: Medical Plan: Patient had undergone cardioversion with a successful conversion to sinus rhythm on 05/23/[address] Duque. Later at the follow-up office visit, patient was noted to be back in atrial flutter and therefore plan was to re-attempt cardioversion. Patient was noted to be already converted spontaneously into sinus rhythm prior to cardioversion. Continue Eliquis for full anticoagulation therapy. No reported signs of bleeding or falls. Patient notes that since being on the amiodarone her tremors have gotten worse and therefore we will reduce it to 100 mg daily. EKG today showed normal sinus rhythm. (2) Cardiomyopathy: Code(s): I42.9 - Cardiomyopathy, unspecified Category: Medical Plan: 04/08/2025-echo study showed mildly decreased LV systolic function with an ejection fraction at 44% with mild global hypokinesis. This was deemed to be possibly due to the AFib and elevated rate. Patient was previously on 40 mg Lasix in the a.m. and 20 in the p.m.. Patient noted that taking 40 mg in the morning made her dizzy and therefore we we will reduce it to 20 mg b.i.d.. Clinically euvolemic at this time. Signs and symptoms of heart failure reviewed with patient. We will plan on repeating an echo prior to next visit. (3) Essential hypertension: Code(s): I10 - Essential (primary) hypertension Category: Medical Plan: Blood pressure today is well-controlled. Home log of blood pressures also stable with systolic averaging between 110 and 120. Continue current regimen. Advised monitoring blood pressures with a goal less than 130/80. (4) Hyperlipidemia: Code(s): E78.5 - Hyperlipidemia, unspecified Category: Medical Qualifiers: Hyperlipidemia type: unspecified Qualified Code(s): E78.5 - Hyperlipidemia, unspecified Plan: Continue statin therapy, with an LDL goal closer to 70. Advised heart healthy diet, avoiding caffeinated beverages, med compliance, and management of vascular risk factors. Follow up in 4 months.. In the interim, patient will call the office with any concerns or change in symptoms. This note was generated using voice recognition software. While every effort has been made to ensure accuracy and proper top lift and automatic window repairer, there may be occasional errors that could affect the content or meaning of the described symptoms. Orders: Orders AMB EKG-In Office 07/08/25 I48.91 - Unspecified atrial fibrillation CA echo transthoracic complete 2 Months I42.9 - Cardiomyopathy, unspecified Medications: Changed From furosemide (Lasix) patient will take 40 mg in AM and 20 mg at pm already has RX for the 40 mg 20 mg PO BEDTIME 30 tabs 0RF To furosemide (Lasix) 20 mg PO BID 30 tabs 0RF From amiodarone start after loading dose 200 mg PO DAILY 90 tabs 1RF To amiodarone start after loading dose 100 mg (1/2 x 200 mg) PO DAILY 90 tabs 1RF Discontinued furosemide (Lasix) Discontinued Reason: Doctor's Order 40 mg PO DAILY 30 tabs 5RF Coding Level of Care Code Est Pt Level 4 (00385) Complex EM visit Add On G2211 Diagnoses Afib I48.91 Cardiomyopathy I42.9 Essential hypertension I10 Hyperlipidemia, unspecified hyperlipidemia type E78.5 Hyperlipidemia type: unspecified CPT Codes EKG - CPT: 78210-Oqrwtgcignqbrrsog, Complete ([id number]) Time Spent (min) 33 Comment This note was generated using voice recognition software. While every effort has been made
[2025-07-08 14:22] VITALS: BP 132/58; PULSE 69; BMI 27.3
--- OUTSIDE RECORDS SUMMARY | 2025-07-08 17:17 | XMS_ITS | Clinical Summary ---
Author Organization [facility] Address [address] [address] Phone Care Team Providers Care Commercial Loan Collection Officer Name Role Phone Ancelmo Chaudhary MD Primary Care Provider [phone] Allergies Active Allergy Reactions Criticality Noted Date [...] [place] [address] MEDICARE PART A & B MEDICARE PART A & B MEDICARE PART A & B MEDICARE PART A & B MEDICARE PART A & B MEDICARE PART A & B MEDICARE PART A & B MEDICARE PART A & B Care Teams Commercial Loan Collection Officer Relationship Specialty Start Date End Date Ancelmo Chaudhary MD [address] [place] [address] PCP - General Internal Medicine 04/15/19 Additional Source Comments The information contained in this document represents components of the legal health record. It is not the complete legal health record.[facility]
--- OUTSIDE RECORDS SUMMARY | 2025-07-08 17:18 | XMS_ITS | Patient Health Record ---
[facility] Address [address] [place] [address] Care Team Providers Care Well Drill Operator Cable Tool Name Role Phone Ancelmo Chaudhary MD Primary Care Provider Unavailab Rasheed Rabago Unavailable [phone] Allergies Allergen (clinical drug ingredient) Drug/Non Drug [...] Status Risk Notes Problem Acquired hallux valgus (15193397) Hallux valgus (acquired), left foot (M20.12) Active confirmed Problem Localized, primary osteoarthritis of the ankle and/or foot (642414412) Primary osteoarthriti s, left ankle and foot (M19.072) Active confirmed Problem Acquired hallux valgus (13049648) Hallux valgus (acquired), right foot (M20.11) Active confirmed Problem Arthritis of left ankle (4803849379457797) Arthritis of left ankle (M19.072) Active confirmed Plan Of Treatment Pending Test Test Name Order Date X ray : Ankle, left 3V 09/07/2023 X ray : Foot, left 3V 09/07/2023 X ray : Foot, left 3V 07/10/2018 X ray : Foot, left 3V 02/26/2019 X ray : Foot, right 3V 09/07/2023, [id number]/[id number], JOINT/BURSA 0 02/26/2019, [id number]/INJECT, JOINT/BURSA 0 12/28/2015- Ganglion Cyst Injection/Aspiratio n 05/30/2011 Insurance Providers Payer Name Payer Address Payer Phone Subscriber Number Group Number Insured Name Patient Relationship to Insured Coverage Start Date Coverage End Date Medicare National Govt Svcs Inc [address] [place] [address] [id number] Rosmery Thompson Self - patient is the insured 7 [facility] [address] [place] [address] [phone] [id number] Rosmery Thompson Self - patient is the [...]
--- OUTSIDE RECORDS SUMMARY | 2025-07-08 17:18 | XMS_ITS | Clinical Summary ---
Author Organization [facility] Address [address] [place] [address] Care Team Providers Care Plush Dresser Name Role Phone Pcp, No Primary Care [...] MEDICARE PART A & B Care Teams Plush Dresser Relationship Specialty Start Date End Date Pcp, No PCP - General General Medicine 11/19/24
--- OUTSIDE RECORDS SUMMARY | 2025-07-08 17:18 | XMS_ITS | Patient Health Record ---
Author Organization [facility] Address [address] [place] [address] Care Team Providers Care Teacher Industrial Arts Name Role Phone Jet (RETIRED) Ancelmo MCCOY [...] Status Risk Notes Problem Colon cancer screening (446268709) Colon cancer screening (Z12.11) Active confirmed Problem Gastroesophageal reflux disease without esophagitis (438023501) Gastroesophageal reflux disease without esophagitis (K21.9) Active confirmed Problem Intestinal gas excretion (34787587) Intestinal gas excretion (R14.3) Active confirmed Problem Colon cancer screening declined (83717551944860) Colon cancer screening declined (Z53.20) Active confirmed Vital Signs Temperature 95.9 degrees Fahrenheit 11/27/2024 Blood pressure diastolic 01 mm Hg 11/27/2024 Height 63 in 11/27/2024 Blood pressure systolic 001 mm Hg 11/27/2024 Weight 154.4 lbs 11/27/2024 BMI 27.35 kg/m2 11/27/2024 Encounters Encounter Location Date Provider Diagnosis [facility] [address] [place] [address] 11/27/2024 Marquis Ayala Jr Gastroesophageal reflux disease without esophagitis K21.9 and Colon cancer screening Z12.11 [facility] [address] [place] [address] 07/19/2024 Marquis Ayala Jr Assessments Encounter Date Diagnosis (ICD Code) Assessment Notes Treatment Notes Treatment Clinical Notes Section Notes 11/27/2024 Colon cancer screening (ICD-10 - Z12.11) 11/27/2024 Gastroesophageal reflux disease without esophagitis (ICD-10 - K21.9) Plan Of Treatment Future Test Test Name Order Date UPPER GI ENDOSCOPY 04/28/2016 COLONOSCOPY 04/28/2016 Next Appt Details Provider Name:Marquis bower Jr, 11/26/2025 10:10:00 AM, [address], [address], [place], [address], Insurance Providers Payer Name Payer Address Payer Phone Subscriber Number Group Number Insured Name Patient Relationship to Insured Coverage Start Date Coverage End Date MEDICARE OF [place] [address] [facility] [place] [address] [id number] KAY VAZQUEZ Self - patient is the insured [employer] CLAIM[employer] [address] [place] [address] [id number] KAY VAZQUEZ Self - patient is the insured Medical (General) History Medical History History ICD Code GERD, EGD 08/2016. No H. pylori or Willows tt's esophagus. Colonoscopy 08/2016, tubular adenoma x1. Followup optional based on age Hypertension Hyperlipidemia Surgical History Surgery Date(Month/Year) trigger finger release ORIF left ankle compound fracture Back surgery Partial hysterectomy, fibroids
== END 2025-07-08 14:53 | disposition home or self-care (01) ==
LOC: HO.HCS 14:17
PROVIDERS: PCP Physician Assistant Medical
DX: I48.91 Unspecified atrial fibrillation (principal); I42.9 Cardiomyopathy, unspecified; I10 Essential (primary) hypertension; E78.5 Hyperlipidemia, unspecified
CPT/HCPCS: 93010; 99214; G2211

== ENCOUNTER → 2025-07-08 14:16 | Outpatient (BNVA) | payer MEDICARE, SELFPAY | PROVIDERS: PCP Physician Assistant Medical | DX: I10 Essential (primary) hypertension (principal); I48.91 Unspecified atrial fibrillation; E78.5 Hyperlipidemia, unspecified; I42.9 Cardiomyopathy, unspecified | CPT/HCPCS: 93005; 99212 ==

== ENCOUNTER 2025-07-23 14:53 | Outpatient (AMB) | payer MEDICARE, SELFPAY ==
--- OUTSIDE RECORDS SUMMARY | 2024-11-06 05:00 | XMS_ITS ---
Author Organization [facility] Address [address] [place] [address] Care Team Providers Care Pricing Manager Name Role Phone Jet (RETIRED) Ancelmo MCCOY Primary Care Provider Unavailable Marquis Ayala Jr REASON FOR VISIT gerd Encounters Encounter Location Date Provider Diagnosis [facility] [address] [place] [address] [place] [address] 11/06/2024 Marquis Ayala Jr Plan Of Treatment Next Appt Details Provider Name:Marquis bower Jr, 11/26/2025 10:10:00 AM, [address] [facility], [address], [place], [address], Progress Notes * KAY CARTWRIGHT EDOB:[birth year] (85 yo F)Acc No.[id number]:11/06/2024 Progress Notes Patient: Jaci HURTADO KAY Dieter Provider: Jaci Ayala MD :1940 A ge:84 Y S ex:Female Date:11/06/2024 Address:[address] [place] [address] [place] Pcp:Ancelmo Chaudhary (RETIRED) MD Subjective: * Chief Complaints: * G erd * The named appointment provid er may or may not be the originator of this progress note, and it is not deemed complete until electronically signed by the appointment provider. Sign off status: Pending * Provider: Jaci Ayala MD Date: 0 11/06/2024 Generated for Jackie stene/Alanna/Gabriel on: 1 09/23/2024 03:25 AM EST
[2025-07-23 14:55] VITALS: BP 134/62; PULSE 73; O2SAT 95; BMI 26.5
--- NOTE | 2025-07-23 14:55 | MHC.OFFVIS ---
Vital Signs 07/23/25 14:55 Height 5 ft 2 in Weight 145 lb BMI 26.5 BP 134/62 Blood Pressure Location Rt brachial Position Sitting Pulse 73 Pulse Source Pulse Oximeter Pulse Oximetry (%) 95 Oxygen Delivery Method Room Air Intake Visit Reasons: Dyspnea Allergies sulfamethoxazole (From Bactrim) Allergy (Mild, Verified 07/08/25 14:25) RASH trimethoprim (From Bactrim) Allergy (Mild, Verified 07/08/25 14:25) RASH Sulfa (Sulfonamide Antibiotics) Allergy (Unknown, Verified 07/08/25 14:25) hives HPI HPI Dyspnea: Details: 85-year-old lady, former 30+ pack-year smoker, quit approximately 30 years prior with underlying AFib and resultant CHF/dyspnea resolved after recent cardioversion referred for evaluation of pulmonary component to her symptoms. At this time patient denies any dyspnea on exertion. She denies prior personal or family history of lung disease. She denies exposure to industrial dusts. [facility] Medical History CHF (congestive heart failure) Fluid level behind tympanic membrane Leg swelling Hospital discharge follow-up Screening for lung cancer YOUNG (dyspnea on exertion) SOB (shortness of breath) History of nicotine use Overweight with body mass index (BMI) of 28 to 28.9 in adult DNR (do not resuscitate) (~01/31/25) DNI (do not intubate) (~01/31/25) Coronary artery disease GERD (gastroesophageal reflux disease) Chronic pain Hyperlipidemia LDL goal <100 Establishing care with new doctor, encounter for Essential hypertension Dual energy x-ray photon absorptiometry (DEXA) scan declined (~01/31/25) History of mammogram (~10/11/24) HTN (hypertension) Surgical History History of colonoscopy Family History Father No problems noted. Mother Heart problem Cancer Social History (Updated 07/23/25 @ 15:02 by KAUR Delong) Household Members: None Housing: Condominium Are you a primary day care aide to a significant other at home: No Do you presently have visiting nurse or other home services: No Alcohol intake: current Alcohol intake frequency: holidays/special occasions only Alcohol type: beer Comment: refused falls interventions/socks. Patient Tobacco Use Status: Former Tobacco user Tobacco use type: Cigarette Years Smoked: started age 19, 1 PPD, quit 31 years ago Second Hand Smoke Exposure: No service: No Current occupational status: retired Cognitive needs: No Hearing needs: Yes (b/l hearing aids) Vision needs: Yes (rx glasses) Review of Systems Const Denies daytime sleepiness, Denies excessive sweating, Denies fatigue, Denies fever(s), Denies lethargy, Denies malaise, Denies night sweats, Denies snoring and Denies weight loss Eyes Denies blurry vision and Denies itchy eyes ENT Denies nasal congestion, Denies post nasal drip, Denies sinus pain, Denies sinus pressure and Denies other ( Thrush) Card Denies chest pain, Denies pedal edema, Denies dyspnea, Denies orthopnea and Denies paroxysmal nocturnal dyspnea Resp Denies cough, Denies hemoptysis, Denies excessive phlegm production, Denies dyspnea, Denies snoring and Denies wheezing GI Denies abdominal pain and Denies heartburn Musc Denies myalgias, Denies arthralgias and Denies joint swelling Skin/Breast Denies rash Neuro Denies memory loss and Denies seizure-like activity Psych Denies abnormal sleep pattern, Denies anxiety and Denies memory loss Endo Denies excessive sweating, Denies fatigue and Denies heat intolerance Dominic/Lymph Denies easy bruising Aller/Immun Denies itchy eyes, Denies seasonal rhinorrhea and Denies wheezing Physical Exam Vital Signs: Last Vital Signs Pulse 73 07/23/25 14:55 BP 134/62 07/23/25 14:55 Pulse Ox 95 07/23/25 14:55 Oxygen Delivery Method Room Air 07/23/25 14:55 BMI result Body Mass Index 26.5 Const General: no acute distress and alert Nutritional Appearance: not obese Orientation/consciousness: Other orientation findings ( oriented) HEENT Head: Yes atraumatic Eyes General: appearance normal, both eyes and all related structures Sclerae: sclerae normal EOM: EOMs intact bilaterally Neck Neck: Yes supple Lymphatic: no lymphadenopathy noted Resp Effort & Inspection: normal respiratory effort and no use of accessory muscles Auscultation: clear to auscultation bilaterally Cardio Rate: regular rate Rhythm: regular rhythm Heart sounds: no gallops, no murmurs and no rubs Skin General skin exam: other ( warm) Extrem General: No clubbing, No cyanosis and No edema Assessment & Plan Assessment & Plan (1) SOB (shortness of breath): Code(s): R06.02 - Shortness of breath Category: Medical Plan: Appears to be mostly cardiac related and resolved after cardioversion. Will obtain pulmonary function test to evaluate for possible COPD component. (2) Pulmonary nodules: Code(s): R91.8 - Other nonspecific abnormal finding of lung field Category: Medical Plan: Will obtain CT chest for further evaluation. Orders: Orders PFT pulmonary function test Today R06.02 - Shortness of breath CT chest wo IV con Today R91.8 - Other nonspecific abnormal finding of lung field Coding Level of Care Code New Pt Level 4 (41851) Diagnoses SOB (shortness of breath) R06.02 Pulmonary nodules R91.8
--- OUTSIDE RECORDS SUMMARY | 2025-07-24 03:25 | XMS_ITS | Patient Health Record ---
Author [facility] Address [address] [place] [address] Care Team Providers Care Behaviour Support Teacher Name Role Phone Ancelmo Chaudhary MD Primary Care Provider Unavailab Rasheed Rabago Unavailable [phone] Allergies Allergen (clinical drug ingredient) Drug/Non Drug [...] Status Risk Notes Problem Acquired hallux valgus (35495604) Hallux valgus (acquired), left foot (M20.12) Active confirmed Problem Localized, primary osteoarthritis of the ankle and/or foot (691796529) Primary osteoarthriti s, left ankle and foot (M19.072) Active confirmed Problem Acquired hallux valgus (20017120) Hallux valgus (acquired), right foot (M20.11) Active confirmed Problem Arthritis of left ankle (3576192583436950) Arthritis of left ankle (M19.072) Active confirmed Plan Of Treatment Pending Test Test Name Order Date X ray : Ankle, left 3V 09/07/2023 X ray : Foot, left 3V 09/07/2023 X ray : Foot, left 3V 07/10/2018 X ray : Foot, left 3V 02/26/2019 X ray : Foot, right 3V 09/07/2023, [id number]/INJECT, JOINT/BURSA 0 02/26/2019, [id number]/INJECT, JOINT/BURSA 0 12/28/2015- Ganglion Cyst Injection/Aspiratio n 05/30/2011 Insurance Providers Payer Name Payer Address Payer Phone Subscriber Number Group Number Insured Name Patient Relationship to Insured Coverage Start Date Coverage End Date Medicare National Govt Svcs Inc [address] [place] [address] [id number] Rosmery Thompson Self - patient is the insured [address] [facility] [address] [place] [address] [id number] Rosmery Thompson Self - patient is the [...]
--- OUTSIDE RECORDS SUMMARY | 2025-07-24 03:26 | XMS_ITS | Patient Health Record ---
Author Organization [facility] Address [address] [place] [id number] Care Team Providers Care Finisher Fine Diamond Dies Name Role Phone Jet (RETIRED) Ancelmo MCCOY Primary Care Provider Unavailable Marquis Ayala Jr Unavailable Allergies Allergen (clinical drug ingredient) Drug/Non Drug Allergy documented on EMR Reaction Allergy Type Onset Date Status sulfamethoxazole / trimethoprim Bactrim Unknown Drug Allergy Active Reason For Referral No Information Medications Medication SIG (Take, Route, Frequency, Duration) Notes Start Date End Date Status Lisinopril 40 MG Tablet 1 tablet Orally Once a day Active amLODIPine Besylate 10 MG Tablet 1 tablet Orally Once a day Active Atorvastatin Calcium 10 MG Tablet 1 tablet Orally Once a day Active Centrum Silver 1 Tablet 1 Orally qd Active Calcium 600 MG Tablet 1 tablet with meal s Orally Once a day Active Fish Oil 1000 MG Capsule 1 capsule Orall y Once a day Active Vitamin B50 Complex 1 Tablet Extended Release 1 Orally qd Acti ve CoQ-10 100 MG Capsule 1 capsule with a m eal Orally Once a day Active Pantoprazole Sodium 40 MG Tablet Delayed Release 1 tablet Orally Once a day; Duration: 90 days Active Plavix 75 MG Tablet 1 tablet Orally Once a day; Duration: 30 day(s) Active Immunizations Vaccine Route Administration Date Status Comme nts Influenza Unknown 06/04/2015 Administered Influenza Unknown 05/05/2019 Administered Influenza Unknown 07/13/2021 Administered Influenza Unknown 07/06/2022 Administered Influenza Unknown 06/27/2023 Administered Influenza Unknown 06/25/2024 Administered Social History Social History Additional Details Category Social Info Options Details Miscellaneous: Marital status: Occupation: retired Section Notes: QUIT SMOKING 22 YEARS AGO QUIT SMOKING 22 YEARS AGO QUIT SMOKING 22 YEARS AGO QUIT SMOKING 22 YEARS AGO Problems Problem Type SNOMED Code ICD Code Onset Dates Problem Status W/U Status Risk Notes Problem Colon cancer screening (407355123) Colon cancer screening (Z12.11) Active confirmed Problem Gastroesophageal reflux disease without esophagitis (547763544) Gastroesophageal reflux disease without esophagitis (K21.9) Active confirmed Problem Intestinal gas excretion (00249679) Intestinal gas excretion (R14.3) Active confirmed Problem Colon cancer screening declined (03721137192018) Colon cancer screening declined (Z53.20) Active confirmed Vital Signs Temperature 95.9 degrees Fahrenheit 11/27/2024 Blood pressure diastolic 01 mm Hg 11/27/2024 Height 63 in 11/27/2024 Blood pressure systolic 001 mm Hg 11/27/2024 Weight 154.4 lbs 11/27/2024 BMI 27.35 kg/m2 11/27/2024 Encounters Encounter Location Date Provider Diagnosis [facility] [address] [place] [id number] 11/27/2024 Marquis Ayala Jr Gastroesophageal reflux disease without esophagitis K21.9 and Colon cancer screening Z12.11 Assessments Encounter Date Diagnosis (ICD Code) Assessment Notes Treatment Notes Treatment Clinical Notes Section Notes 11/27/2024 Colon cancer screening (ICD-10 - Z12.11) 11/27/2024 Gastroesophageal reflux disease without esophagitis (ICD-10 - K21.9) Plan Of Treatment Future Test Test Name Order Date UPPER GI ENDOSCOPY 04/28/2016 COLONOSCOPY 04/28/2016 Next Appt Details Provider Name:Marquis bower Jr, 11/26/2025 10:10:00 AM, [address] [place] [address], [address], [place], [phone], Insurance Providers Payer Name Payer Address Payer Phone Subscriber Number Group Number Insured Name Patient Relationship to Insured Coverage Start Date Coverage End Date [place] OF [place] [address] [place] [id number] [phone] [id number] KAY VAZQUEZ Self - patient is the insured MED[employer] ATTN CLAIMS [address] [place] [address] [phone] [id number] KAY VAZQUEZ Self - patient is the insured Medical (General) History Medical History History ICD Code GERD, EGD 08/2016. No H. pylori or [place] tt's esophagus. Colonoscopy 08/2016, tubular adenoma x1. Followup optional based on age Hypertension Hyperlipidemia Surgical History Surgery Date(Month/Year) Partial hysterectomy, fibroids Back surgery ORIF left ankle compound fracture trigger finger release
--- OUTSIDE RECORDS SUMMARY | 2025-07-24 03:26 | XMS_ITS | Clinical Summary ---
Author Organization [facility] Address [address] [place] [address] Care Team Providers Care Compressor Station Chief Engineer Name Role Phone Pcp, No Primary Care [...] MEDICARE PART A & B Care Teams Compressor Station Chief Engineer Relationship Specialty Start Date End Date Pcp, No PCP - General General Medicine 11/19/24
--- OUTSIDE RECORDS SUMMARY | 2025-07-24 03:26 | XMS_ITS | Clinical Summary ---
Author Organization [facility] Address [address] [address] Phone Care Team Providers Care Director Of Claims Name Role Phone Ancelmo Chaudhary MD Primary Care Provider [phone] Allergies Active Allergy Reactions Criticality Noted Date [...] [place] [id number] MEDICARE PART A & B MEDICARE PART A & B MEDICARE PART A & B MEDICARE PART A & B MEDICARE PART A & B MEDICARE PART A & B MEDICARE PART A & B MEDICARE PART A & B Care Teams Director Of Claims Relationship Specialty Start Date End Date Ancelmo Chaudhary MD [address] [place] [address] PCP - General Internal Medicine 04/15/19 Additional Source Comments The information contained in this document represents components of the legal health record. It is not the complete legal health record.[facility]
== END 2025-07-23 15:12 | disposition home or self-care (01) ==
LOC: HO.HPS 14:53
PROVIDERS: PCP Internal Medicine; Referring Provider Physician Assistant Medical; Visit Provider Internal Medicine Pulmonary Disease
DX: R06.02 Shortness of breath (principal); R91.8 Other nonspecific abnormal finding of lung field
CPT/HCPCS: 99204

== ENCOUNTER → 2025-07-23 14:53 | Outpatient (BNVA) | payer MEDICARE, SELFPAY | PROVIDERS: PCP Internal Medicine; Referring Provider Physician Assistant Medical; Visit Provider Internal Medicine Pulmonary Disease | DX: R06.02 Shortness of breath (principal); R91.8 Other nonspecific abnormal finding of lung field; Z87.891 Personal history of nicotine dependence | CPT/HCPCS: 99202 ==

== ENCOUNTER 2025-08-12 09:53 | Outpatient (AMB) | payer MEDICARE, SELFPAY ==
--- NOTE | 2025-08-12 10:02 | A.OFFPC_ITS ---
Vital Signs 08/12/25 10:03 Height 5 ft 2 in Weight 148 lb BMI 27.1 BP 124/60 Blood Pressure Location Rt brachial Position Sitting Respiration 14 Pulse 60 Pulse Source Pulse Oximeter Temp 97.2 F Temp Source Temporal Artery Scan Pulse Oximetry (%) 95 Oxygen Delivery Method Room Air Intake Visit Reasons: 3 month follow up Produce Buyer Required: No Accompanied by: Self / Same As Patient Allergies sulfamethoxazole (From Bactrim) Allergy (Mild, Verified 08/12/25 10:49) RASH trimethoprim (From Bactrim) Allergy (Mild, Verified 08/12/25 10:49) RASH Sulfa (Sulfonamide Antibiotics) Allergy (Unknown, Verified 08/12/25 10:49) hives Medication List - Last Reconciled 08/12/25 by Aiyana Gage PA-C amiodarone 100 mg (1/2 x 200 mg) PO DAILY amlodipine 10 mg PO DAILY apixaban 5 mg PO BID atorvastatin 10 mg PO BEDTIME furosemide (Lasix) 20 mg PO BID lisinopril 20 mg See Protocol PO DAILY pantoprazole 40 mg PO DAILY@0630 Tobacco use date assessed: 06/11/25 Dental Screening Dental Screen Date: 01/31/25 HPI HPI Comments History of Present Illness Details History of Present Illness The patient is an 85 year old female presenting with a regular three-month follow-up. She has a history of atrial fibrillation, fluid around her lungs, and congestive heart failure, for which she takes Lasix. Her leg swelling has improved and she reports no shortness of breath or chest pain. For GERD, she elevates her bed and takes pantoprazole 40 mg. Her medications for cardiovascular conditions include lisinopril 20 mg and amlodipine 10 mg for hypertension, atorvastatin 10 mg for hyperlipidemia, Eliquis 5 mg twice daily for atrial fibrillation, amiodarone 100 mg daily for rate control, and Lasix 20 mg twice daily for congestive heart failure. Her last visit with her grain and yeast plants supervisor was on July 08. She underwent a successful cardioversion on May 23, 2025, but was noted to be back in atrial flutter at a follow-up visit, and a repeat cardioversion was planned. However, prior to the scheduled procedure, she spontaneously converted to normal sinus rhythm. Due to worsening tremors, her amiodarone dose was reduced to 100 mg daily. An EKG showed normal sinus rhythm. An echocardiogram from April 2025 revealed a decreased left ventricular systolic function with an ejection fraction of 44%. The patient has declined further mammograms, colonoscopies, and bone density scans. Her last colonoscopy was in her 70s. Social History - Exercise: The patient reports she tien villatoro does yoga. [facility] Medical History (Updated 08/12/25 @ 10:55 by Aiyana Gage PA-C) Preventative health care Hyperlipidemia LDL goal <70 Mammogram declined (~08/12/25) Hard of hearing CHF (congestive heart failure) Fluid level behind tympanic membrane Leg swelling Hospital discharge follow-up Screening for lung cancer YOUNG (dyspnea on exertion) SOB (shortness of breath) History of nicotine use Overweight with body mass index (BMI) of 28 to 28.9 in adult DNR (do not resuscitate) (~01/31/25) DNI (do not intubate) (~01/31/25) Coronary artery disease GERD (gastroesophageal reflux disease) Chronic pain Establishing care with new doctor, encounter for Essential hypertension Dual energy x-ray photon absorptiometry (DEXA) scan declined (~01/31/25) History of mammogram (~10/11/24) HTN (hypertension) Surgical History History of colonoscopy Family History Father No problems noted. Mother Heart problem Cancer Social History Household Members: None Housing: Condominium Are you a primary home health care worker to a significant other at home: No Do you presently have visiting nurse or other home services: No Alcohol intake: current Alcohol intake frequency: holidays/special occasions only Alcohol type: beer Comment: refused falls interventions/socks. Patient Tobacco Use Status: Former Tobacco user Tobacco use type: Cigarette Years Smoked: started age 19, 1 PPD, quit 31 years ago Second Hand Smoke Exposure: No service: No Current occupational status: retired Cognitive needs: No Hearing needs: Yes (b/l hearing aids) Vision needs: Yes (rx glasses) Questionnaire PHQ-9 Over the last 2 weeks, how often have you been bothered by any of the following problems? 1. Little interest or pleasure in doing things: not at all 2. Feeling down, depressed, or hopeless: not at all 3. Trouble falling or staying asleep, or sleeping too much: not at all 4. Feeling tired or having little energy: not at all 5. Poor appetite or overeating: not at all 6. Feeling bad about yourself - or that you are a failure or have let yourself or your family down: not at all 7. Trouble concentrating on things, such as reading the newspaper or watching television: not at all 8. Moving or speaking so slowly that other people could have noticed. Or the opposite - being so fidgety or restless that you have been moving around a lot more than usual: not at all 9. Thoughts that you would be better off or of hurting yourself in some way: not at all Total score: 0 Depression Screening Interpretation: Negative Depression Screening Done: Yes 69139 - PHQ-9 Billing: Yes Source: Developed by Drs. Alejandro Luna, Jackelin Colvin, Bryon Birmingham and colleagues, with an educational dorothy from [employer]. Thrive Questionnaire Date Thrive assessed: 04/08/25 I am a: Patient What is your living situation today?: I have a steady place to live Within the past 12 months, did the food you bought not last and you didn't have the money to get more?: Never true Within the past 12 months, did you worry whether your food would run out before you got money to buy more?: Never true Do you have trouble paying for medicines?: No Do you have trouble getting transportation to medical appointments?: No Do you have trouble paying your heating and electricity bill?: No Do you have trouble taking care of your child, family member or friend?: No Do you have trouble with day-to-day activities such as bathing, preparing meals, shopping, managing finances, etc.?: No Are you currently unemployed and looking for a job?: No Are you interested in more education?: No Please select the resources that you would like help with: None Currently or been in a relationship where the following occur: No concerns reported THRIVE Score: 0 AUDIT C Alcohol Use Questionnaire (AUDIT-C) 1. How often do you have a drink containing alcohol?: Never 3. How often do you have six or more drinks on one occasion?: Never Total Score: 0 Score Reviewed/Action Taken: No AILYN-7 AMB Questionnaire AILYN-7 Date AILYN - 7 assessed: 01/31/25 Feeling nervous, anxious, or on edge: 0 = Not at all Not being able to stop or control worryin = Not at all Worrying too much about different things: 0 = Not at all Trouble relaxin = Not at all Being so restless that it is hard to sit still: 0 = Not at all Becoming easily annoyed or irritable: 0 = Not at all Feeling afraid as if something awful might happen: 0 = Not at all Total AILYN-7 score (0-4 normal; 5-9 mild; 10-14 moderate; 15-21 severe): 0 Source: Developed by Drs. Alejandro Luna, Jackelin Colvin, Bryon Birmingham and colleagues, with an educational dorothy from [employer]. AILYN-7 Assessment Billing AILYN-7 Assessment Tool: AILYN-7 Assessment 93173 Review of Systems Narrative Review of Systems - Constitutional: Denies falls. - Cardiovascular: Reports improved leg swelling. Denies chest pain or orthopnea. - Respiratory: Denies shortness of breath. - Gastrointestinal: Reports acid reflux, managed by elevating her bed. - Neurological: Reports worsening tremors. - Hematologic/Lymphatic: Denies signs of bleeding. Const All systems reviewed & are unremarkable except as noted in HPI and below Physical exam (Primary Care) Vital Signs: Last Vital Signs Temp 97.2 F 08/12/25 10:03 Pulse 60 08/12/25 10:03 Resp 14 08/12/25 10:03 BP 124/60 08/12/25 10:03 Pulse Ox 95 08/12/25 10:03 Oxygen Delivery Method Room Air 08/12/25 10:03 Care Plan Goal for BP management: <140/90 at Goal BMI result Body Mass Index 27.1 BMI Assessment/Plan discussion: High BMI High, discussed plan: lifestyle, weight reduction, dietary, physical activity, alcohol moderation and other Tobacco/Smoking Status: Tobacco use Status Tobacco use date assessed 06/11/25 08/12/25 10:04 Patient Tobacco Use Status Former Tobacco user 08/12/25 10:04 Tobacco use type Cigarette 12/09/25 10:04 PHQ-9: PHQ-9 Score PHQ-9: Total score 0 08/12/25 10:09 Depression Screening Interpretation: Negative Thrive Assessment: Date of Thrive Assessment Date Thrive assessed 04/08/25 08/12/25 10:04 Currently or been in a relationship where the following occur: No concerns reported Narrative Physical Exam Appearance: Alert. Oriented X3. No acute distress. Head: Normal external exam. Normocephalic. Atraumatic. Eyes: Pupils are equal, round, and reactive to light. Extraocular movements intact. Conjunctiva and sclera normal. Eyelids normal. Throat: Pharynx normal. Uvula midline. Moist mucous membranes. Neck: Normal inspection. Neck supple. Full range of motion. Cardiovascular: Normal heart rate and rhythm. Respiratory: No respiratory distress. Painless inspiration. Back: Full range of motion noted. Skin: Skin warm and dry. Normal skin color. Normal skin turgor. No rashes/lesions/lacerations noted. Extremities: No lower extremity edema. Extremities exhibit normal range of motion. Neuro: Oriented X 3. No motor deficit. No sensory deficit. Reflexes normal. Results Reviewed Results Reviewed: - Echocardiogram (April 2025): Showed decreased left ventricular systolic function with an ejection fraction of 44%. - EKG: Showed normal sinus rhythm. Coding Level of Care Code Est Pt Level 4 (09908) Complex visit Add On G2211 Diagnoses Afib I48.91 CHF (congestive heart failure) I50.9 Hyperlipidemia LDL goal <70 E78.5 [facility] Z00.00 Additional Codes AILYN-7 Assessment Billing - AILYN-7 Assessment Tool: AILYN-7 Assessment 04947 ([id number]) PHQ-9 - 90602 - PHQ-9 Billing: Yes ([id number]) Assessment & Plan Assessment & Plan (1) Afib: Code(s): I48.91 - Unspecified atrial fibrillation Category: Medical Plan: The patient will continue Eliquis for full anticoagulation and amiodarone 100 mg daily for rate control, as recommended by her grain and yeast plants supervisor. The patient is also on amlodipine for blood pressure and heart protection. Condition is chronic and stable continue to monitor. (2) CHF (congestive heart failure): Code(s): I50.9 - Heart failure, unspecified Category: Medical Plan: The patient inquired about reducing her Lasix from twice a day to once a day. Given her echocardiogram in April 2025 showed an ejection fraction of 44%, the current dosing is to prevent fluid retention. I will message her grain and yeast plants supervisor to inquire if the Lasix dose can be reduced to 20 mg once daily. Condition is chronic and stable continue to monitor. (3) Hyperlipidemia LDL goal <70: Code(s): E78.5 - Hyperlipidemia, unspecified Category: Medical Plan: The patient will continue atorvastatin 10 mg at bedtime. The goal is to maintain an LDL cholesterol level below 70 mg/dL. Comprehensive lab work, including a lipid panel, has been ordered to be completed one week before her next physical. Condition is chronic and stable will continue to monitor. (4) Preventative health care: Code(s): Z00.00 - Encounter for general adult medical examination without abnormal findings Category: Medical Plan: The patient has declined further mammograms, colonoscopies, and bone scans. She has an upcoming physical in November with Dr. Jordan Baires have ordered fasting lab work incluindo a CBC, CMP, inflammatory markers, magnesium, vitamin B12, vitamin D, thyroid panel, urinalysis, and A1c to be done one week prior to her appointment. Plan Plan Patient was informed and verbally consented to the use of an ambient scribe for clinic note documentation during this visit. 1. Atrial Fibrillation And Flutter The patient will continue Eliquis for full anticoagulation and amiodarone 100 mg daily for rate control, as recommended by her grain and yeast plants supervisor. The patient is also on amlodipine for blood pressure and heart protection. 2. Congestive Heart Failure The patient inquired about reducing her Lasix from twice a day to once a day. Given her echocardiogram in April 2025 showed an ejection fraction of 44%, the current dosing is to prevent fluid retention. I will message her grain and yeast plants supervisor to inquire if the Lasix dose can be reduced to 20 mg once daily. 3. Hyperlipidemia The patient will continue atorvastatin 10 mg at bedtime. The goal is to maintain an LDL cholesterol level below 70 mg/dL. Comprehensive lab work, including a lipid panel, has been ordered to be completed one week before her next physical. 4. Preventative Care / Health Maintenance The patient has declined further mammograms, colonoscopies, and bone scans. She has an upcoming physical in November with Dr. Jordan Baires have ordered fasting lab work incluindo a CBC, CMP, inflammatory markers, magnesium, vitamin B12, vitamin D, thyroid panel, urinalysis, and A1c to be done one week prior to her appointment. Discussion Notes I reviewed the patient's current medications and history, including her recent cardiology follow-up. I explained to her that the grain and yeast plants supervisor will likely want her to continue amiodarone for rate control to prevent her heart rate from fluctuating significantly and to prevent her from going back into atrial fibrillation, especially when she is sick. We discussed her request to reduce the frequency of Lasix. I explained that her reduced ejection fraction of 44% is the reason for the current dosing but agreed to contact her grain and yeast plants supervisor to see if it could be reduced to once a day. I emphasized the importance of keeping her LDL cholesterol below 70 mg/dL and ordered a full panel of blood work to be done before her next physical in November. We discussed her decision to forego further mammograms, colonoscopies, and bone scans, which I documented. Orders: Orders C Reactive Protein Today Z00.00 - Encounter for general adult medical examination without abnormal findings Complete Blood Count Auto Diff Today Z00.00 - Encounter for general adult medical examination without abnormal findings Magnesium Today Z00.00 - Encounter for general adult medical examination without abnormal findings UA CC w/rflx Micro + Cult Today Z00.00 - Encounter for general adult medical examination without abnormal findings Vitamin D 25-OH Total Today Z00.00 - Encounter for general adult medical ex amination without abnormal findings Hemoglobin A1c Today Z00.00 - Encounter for general adult medical examination without abnormal findings Comprehensive [place]. Panel Fast Today Z00.00 - Encounter for general adult medical examination without abnormal findings Erythrocyte Sedimentation Rate Today Z00.00 - Encounter for general adult medical examination without abnormal findings TSH reflex Free T4 Today Z00.00 - Encounter for general adult medical examination without abnormal findings Vitamin B12 and Folate Today Z00.00 - Encounter for general adult medical examination without abnormal findings Lipid Panel Today Z00.00 - Encounter for general adult medical examination without abnormal findings Patient Instructions: Patient Instructions - Continue taking all your medications as prescribed, including Eliquis, amiodarone, lisinopril, amlodipine, and atorvastatin. - I will contact your heart doctor to ask if you can reduce your Lasix dose to once a day and will let you know what they say within the next day or two. - Please go for your blood tests one week before your physical appointment in November. - You will need to be fasting (no food or drink except water) for the blood tests. - You have an appointment for a physical exam with Dr. Juarez in November. - You are also scheduled for a breathing test next month and a CAT scan this month.
[2025-08-12 10:03] VITALS: BP 124/60; PULSE 60; RESP 14; TEMP 36.2; O2SAT 95; BMI 27.1
== END 2025-08-12 10:44 | disposition home or self-care (01) ==
LOC: HO.HMCSH 09:53
PROVIDERS: PCP Internal Medicine; Visit Provider Physician Assistant Medical
DX: I48.91 Unspecified atrial fibrillation (principal); I50.9 Heart failure, unspecified; E78.5 Hyperlipidemia, unspecified; Z00.00 Encounter for general adult medical examination without abnormal findings

== ENCOUNTER → 2025-08-12 09:53 | Outpatient (BNVA) | payer MEDICARE, SELFPAY | PROVIDERS: PCP Internal Medicine; Visit Provider Physician Assistant Medical | DX: K21.9 Gastro-esophageal reflux disease without esophagitis (principal); I48.91 Unspecified atrial fibrillation; I50.9 Heart failure, unspecified; E78.5 Hyperlipidemia, unspecified; Z13.31 Encounter for screening for depression; I48.92 Unspecified atrial flutter | CPT/HCPCS: 96127; 99212 ==

== ENCOUNTER 2025-08-29 10:15 | Outpatient (REF) | payer MEDICARE, SELFPAY ==
--- OUTSIDE RECORDS SUMMARY | 2024-11-06 05:00 | XMS_ITS ---
Author Organization [facility] Address [address] [place] [address] Care Team Providers Care Manual Tester Name Role Phone Jet (RETIRED) Ancelmo MCCOY Primary Care Provider Unavailable Marquis Ayala Jr [phone] REASON FOR VISIT gerd Encounters Encounter Location Date Provider Diagnosis [facility] [address] [place] [address] [place] [address] 11/06/2024 Marquis Ayala Jr Plan Of Treatment Next Appt Details Provider Name:Marquis bower Jr, 11/26/2025 10:10:00 AM, 10 [facility], [address], [place], [address], Progress Notes * KAY CARTWRIGHT EDOB:[birth year] (85 yo F)Acc No.[id number]:11/06/2024 Progress Notes Patient: Jaci HURTADO KAY Dieter Provider: Jaci Ayala MD :1940 A ge:84 Y S ex:Female Date:11/06/2024 Address:[address] [place] [address] [place] Pcp:Ancelmo Chaudhary (RETIRED) MD Subjective: * Chief Complaints: * G erd * The named appointment provid er may or may not be the originator of this progress note, and it is not deemed complete until electronically signed by the appointment provider. Sign off status: Pending * Provider: Jaci Ayala MD Date: 0 11/06/2024 Generated for Jackie steen/Alanna/Gabriel on: 1 10/30/2024 10:17 AM EST
--- NOTE | ~2025-08-29 | CT_ITS ---
EXAMINATION: CT CHEST WITHOUT CONTRAST CLINICAL INFORMATION: Nonspecific abnormal lung findings. Right pleural effusion on chest x-ray 06/17/2025 COMPARISON: Chest x-ray 06/17/2025 TECHNIQUE: Multidetector volumetric CT imaging of the chest was done. Axial MIP volume rendering provided. Sagittal and coronal reformatted images were obtained. This CT examination was performed using dose optimization techniques as appropriate, variously including the following: *Automated exposure control *Adjustment of mA and/or kV according to patient size (this includes techniques or standardized protocols for targeted exams where dose is matched to indication/reason for exam; i.e. extremities or head) *Use of iterative reconstruction technique DLP: 137 mGy/cm. FINDINGS: TOWER HELPER: Well-expanded lungs. LUNGS: There is diffuse centrilobular emphysema without acute pneumonic process. There are p punctate 1 mm nodules are seen in both lungs on 8mm thick cuts likely tiny granulomas or volume averaging of vessels. A 2.7 mm nodule is seen in the right upper lobe axial image 58/8. No acute consolidation, mass or atelectasis. MEDIASTINUM: Thyroid lobes are symmetrical and normal. The central trachea and the bronchi appears widely patent. Heart size and the great vessels are normal caliber. At the sclerotic calcification of thoracic aorta is noted. No pericardial effusion seen. No abnormal mediastinal lymphadenopathy. CORONARY ARTERY CALCIFICATION: Moderate coronary artery calcifications are present. PLEURA: There is no pleural effusion. No pleural mass or thickening. AXILLA: No abnormal axillary lymph nodes seen. There is a 1.8 cm nodule right lateral breast with punctate calcification on axial image 27/3. Question scar versus underlying lesion. UPPER ABDOMEN: Visualized liver, spleen, bilateral adrenal glands appear unremarkable. Punctate calcifications seen in the upper pole left kidney question calcification versus tiny stone OSSEOUS STRUCTURES: No aggressive lytic or sclerotic process seen. There is mild ventral spondylosis throughout dorsal spine. CT/CT chest wo IV con IMPRESSION: Emphysema with no acute pneumonic process. Punctate benign-appearing pulmonary nodules. No pleural effusion or thickening seen. Right lateral breast nodule with calcification. Question scar versus lesion. Correlate with mammogram. Fleischner guidelines were followed. Electronically signed by: Ayaz Kong MD 08/29/2025 10:57 AM [facility]
--- OUTSIDE RECORDS SUMMARY | 2025-08-29 10:17 | XMS_ITS | Clinical Summary ---
Author Organization [facility] Address [address] [place] [address] Care Team Providers Care Land Management Forester Name Role Phone Pcp, No Primary Care [...] Influenza Vaccine 04/04/2025 COVID-19 Vaccine ( - 2024-2 6 season) 2025 Hepatitis B Vaccines Aged Out No long er eligible based on patient's age to complete this topic Insurance BLUE CROSS OUT OF STATE - PPO MEDICARE PART A & B Care Teams Land Management Forester Relationship Specialty Start Date End Date Pcp, No PCP - General General Medicine 11/19/24
--- OUTSIDE RECORDS SUMMARY | 2025-08-29 10:17 | XMS_ITS | Patient Health Record ---
Author Organization [facility] Address [address] [place] [id number] Care Team Providers Care Fish Tender Name Role Phone Jet (RETIRED) Ancelmo MCCOY [...] meal s Orally Once a day Active Pantoprazole Sodium 40 MG Tablet Delayed Release 1 tablet Orally Once a day; Duration: 90 days Active Fish Oil 1000 MG Capsule 1 capsule Orall y Once a day Active Vitamin B50 Complex 1 Tablet Extended Release 1 Orally qd Acti ve CoQ-10 100 MG Capsule 1 capsule with a m eal Orally Once a day Active Plavix 75 MG Tablet 1 tablet [...] Status Risk Notes Problem Colon cancer screening (618634819) Colon cancer screening (Z12.11) Active confirmed Problem Gastroesophageal reflux disease without esophagitis (646368301) Gastroesophageal reflux disease without esophagitis (K21.9) Active confirmed Problem Intestinal gas excretion (27804818) Intestinal gas excretion (R14.3) Active confirmed Problem Colon cancer screening declined (78831007277935) Colon cancer screening declined (Z53.20) Active confirmed Vital Signs Temperature 95.9 degrees Fahrenheit 11/27/2024 Blood pressure diastolic 01 mm Hg 11/27/2024 Height 63 in 11/27/2024 Blood pressure systolic 001 mm Hg 11/27/2024 Weight 154.4 lbs 11/27/2024 BMI 27.35 kg/m2 11/27/2024 Encounters Encounter Location Date Provider Diagnosis [facility] [address] [place] [address] 11/27/2024 Marquis Ayala Jr Gastroesophageal reflux disease without esophagitis K21.9 and Colon cancer screening Z12.11 [facility] [address] [place] [address] 08/29/2025 Marquis Ayala Jr Gastro-esophageal reflux disease without esophagitis K21.9 Assessments Encounter Date Diagnosis (ICD Code) Assessment Notes Treatment Notes Treatment Clinical Notes Section Notes 11/27/2024 Colon cancer screening (ICD-10 - Z12.11) 11/27/2024 Gastroesophageal reflux disease without esophagitis (ICD-10 - K21.9) 08/29/2025 Gastro-esophageal reflux disease without esophagitis (ICD-10 - K21.9) Plan Of Treatment Future Test Test Name Order Date UPPER GI ENDOSCOPY 04/28/2016 COLONOSCOPY 04/28/2016 Next Appt Details Provider Name:Marquis bower Jr, 11/26/2025 10:10:00 AM, [address], [address], [place], [address], Insurance Providers Payer Name Payer Address Payer Phone Subscriber Number Group Number Insured Name Patient Relationship to Insured Coverage Start Date Coverage End Date MEDICARE OF [place] [address] [place] [address] [id number] KAY VAZQUEZ Self - patient is the insured [employer] CLAIMS [address] [place] [address] [phone] [id number] KAY VAZQUEZ Self - patient is the insured Medical (General) History Medical History History ICD Code GERD, EGD 08/2016. No H. pylori or Leck[place] tt's esophagus. Colonoscopy 08/2016, tubular adenoma x1. Followup optional based on age Hypertension Hyperlipidemia Surgical History Surgery Date(Month/Year) Partial hysterectomy, fibroids Back surgery ORIF left ankle compound fracture trigger finger release
--- OUTSIDE RECORDS SUMMARY | 2025-08-29 10:17 | XMS_ITS | Patient Health Record ---
[facility] Address [address] [place] [address] Care Team Providers Care Plastic Process Technician Name Role Phone Ancelmo Chaudhary MD Primary Care Provider Unavailab Rasheed Rabago Unavailable [phone] Allergies Allergen (clinical drug ingredient) Drug/Non Drug [...] Status Risk Notes Problem Acquired hallux valgus (53814083) Hallux valgus (acquired), left foot (M20.12) Active confirmed Problem Localized, primary osteoarthritis of the ankle and/or foot (606762115) Primary osteoarthriti s, left ankle and foot (M19.072) Active confirmed Problem Acquired hallux valgus (31919348) Hallux valgus (acquired), right foot (M20.11) Active confirmed Problem Arthritis of left ankle (5009535276338989) Arthritis of left ankle (M19.072) Active confirmed Plan Of Treatment Pending Test Test Name Order Date X ray : Ankle, left 3V 09/07/2023 X ray : Foot, left 3V 09/07/2023 X ray : Foot, left 3V 07/10/2018 X ray : Foot, left 3V 02/26/2019 X ray : Foot, right 3V 09/07/2023, [id number]/[id number], JOINT/BURSA 0 02/26/2019, [id number]/INJECT, JOINT/BURSA 0 12/28/2015- Ganglion Cyst Injection/Aspiratio n 05/30/2011 Insurance Providers Payer Name Payer Address Payer Phone Subscriber Number Group Number Insured Name Patient Relationship to Insured Coverage Start Date Coverage End Date Medicare National [employer] [address] [facility] [place] [address] [id number] Rosmery Thompson Self - patient is the insured [facility] [address] [place] [address] [phone] [id number] Rosmery Thompson Self - patient is the [...]
--- OUTSIDE RECORDS SUMMARY | 2025-08-29 10:17 | XMS_ITS | Clinical Summary ---
Author Organization [facility] Address [address] [address] Phone Care Team Providers Care Systems Applications Programming Lead Name Role Phone Ancelmo Chaudhary MD Primary Care Provider [phone] Allergies Active Allergy Reactions Criticality Noted Date [...] [place] [id number] MEDICARE PART A & B MEDICARE PART A & B MEDICARE PART A & B MEDICARE PART A & B MEDICARE PART A & B MEDICARE PART A & B MEDICARE PART A & B MEDICARE PART A & B Care Teams Systems Applications Programming Lead Relationship Specialty Start Date End Date Ancelmo Chaudhary MD [address] [place] [address] PCP - General Internal Medicine 04/15/19 Additional Source Comments The information contained in this document represents components of the legal health record. It is not the complete legal health record.[facility]
== END 2025-08-29 10:16 | disposition home or self-care (01) ==
LOC: HO.CT 10:15
PROVIDERS: PCP Internal Medicine; Visit Provider Internal Medicine Pulmonary Disease
DX: R91.8 Other nonspecific abnormal finding of lung field (principal)
CPT/HCPCS: 71250

== ENCOUNTER → 2025-08-29 10:17 | Outpatient (BNV) | payer MEDICARE, SELFPAY | PROVIDERS: PCP Internal Medicine; Visit Provider Radiology Diagnostic Radiology | DX: J43.9 Emphysema, unspecified (principal); N63.10 Unspecified lump in the right breast, unspecified quadrant | CPT/HCPCS: 71250 ==